=== PATIENT | female | born 1975 | race African-American/Black ===

== ENCOUNTER 2016-12-28 07:31 | Inpatient (IN) | payer OTHER ==
[2016-12-28] VITALS (7 sets, daily range): BP systolic 117–171; BP diastolic 59–112
[~2016-12-28] VITALS: Ht 152.4 cm; Wt 87.6 kg
--- NOTE | ~2016-12-28 | EKG ---
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
[~2016-12-28 07:31] MED LIST: ACCUNEB SO1.25 MG/1 INH; ACETAMINOPHEN-1 EAC1 PO; ACETAMINOPHEN325 M1 PO; ALBUTEROL2.5 MG/0.1 INH; ALBUTEROL2.5 MG/0.5 INH; ALBUTEROL2.5 MG/31 INH; ALBUTEROL2.5 MG/31 PO; ALDACTONE25 MG PO; AMLODIPINE BESY10 MG PO; AMOXICILLIN500 M1 PO; ATIVAN0.5 MG PO; ATIVAN1 MG PO; BENADRYL25 MG PO; BENTYL 20 MG TA20 M1 PO; COLACE 100 MG100 MG PO; DARVOCET-N 1001 EACH PO; DESYREL100 MG PO; DILAUDID2 M1 PO; DOXYCYCLINE 10100 MG PO; FLEXERIL; FLOVENT HFA 1110 MCG; HOME NEBULIZER; HYDROCHLORO; HYDROCHLOROTH12.5 M1 PO; HYDROXYCHLOROQ200 M1 PO; IBUPROFEN 600600 M1 PO; IBUPROFEN 800800 M1 PO; LISINOPRIL PO; LISINOPRIL10 MG PO; MECLIZINE 25 MG25 M1 PO; MEDROL DOSPAK21 TAB PO; MEDROLDOSEPACK PO; MIRALAX255 GM PO; NAPROSYN500 MG PO; NORCO 5-325 TA1 EACH PO; PERCOCET 5-3251 EACH PO; PHENERGAN 25 MG25 M1 PO; PLAQUENIL200 MG PO; PREDNISONE 10 M10 M1 PO; PREDNISONE 10 M10 MG PO; PREDNISONE 20 M20 MG PO; PREDNISONE 5 MG5 MG; PREDNISONE50 MG PO; PROAIR HFA8.5 GM IH; PROAIR HFA8.5 GM INH; PROMETHAZINE-C120 ML PO; PROTONIX 20 MG20 M1 PO; PROTONIX40 M1 PO; PROVENTIL HFA6.7 G1 INH; PROVENTIL IH; SPIRIVA INH; TESSALON PERLE100 MG PO; TOPAMAX PO; TRAMADOL 50 MG50 MG PO; ULTRAM 50MG TAB50 MG PO; VENTOLIN HFA 1818 GM INH; VENTOLIN17 GM INH; VICODIN 5-5001 EACH PO; XANAX 0.5 MG0.5 MG PO; ZOFRAN ODT4 MG PO; ZPAK PO; [UNRECOGNIZED DRUG - OTHER] TP
[2016-12-28] MEDS ORDERED: PROAIR HFA8.5 GM INH (08:20)
[2016-12-28] MEDS ORDERED: ACCUNEB SO1.25 MG/1 INH (08:20)
[2016-12-28] MEDS ORDERED: PREDNISONE 20 M20 MG PO (08:20)
[2016-12-28 09:42] LABS: ABSOLUTE NEUTROPHILS 7.6 thou/uL (1.4-8.2); BASOPHILS 0.5 % (0.0-2.0); HEMOGLOBIN 11.2 gm/dL (12.0-15.0); LYMPHOCYTES 15.8 % (24.0-44.0); MCH 25.9 pg (26.0-34.0); MCHC 32.8 g/dL (28.0-37.0); MONOCYTES 1.5 % (1.0-8.0); PLATELET COUNT 246 thou/uL (150-400); POLYS 79.2 % (36.0-66.0); RBC 4.31 mil/uL (4.20-5.00); RDW 15.3 % (10.5-14.5); WBC 9.5 thou/uL (4.0-11.0)
[2016-12-28 09:44] LABS: MANUAL DIFF NO
[2016-12-28 09:52] LABS: CALCIUM 8.8 mg/dL (8.5-10.1); CREATININE 0.9 mg/dL (0.6-1.3); POTASSIUM 3.1 mmol/L (3.5-5.1)
[2016-12-28 21:16] LABS: MAGNESIUM 1.9 mg/dL (1.8-2.4); POTASSIUM 4.6 mmol/L (3.5-5.1)
[2016-12-28 21:31] LABS: CK-MB MASS 0.7 ng/mL (<0.5-3.6); TROPONIN-I < 0.04 ng/mL (<0.04-0.07)
[2016-12-29 03:08] VITALS: BP 132/73
[2016-12-29 04:10] LABS: HEMATOCRIT 33.1 % (37.0-47.0); HEMOGLOBIN 10.8 gm/dL (12.0-15.0); MCH 26.2 pg (26.0-34.0); MCHC 32.8 g/dL (28.0-37.0); MCV 79.9 fL (80.0-100.0); RBC 4.13 mil/uL (4.20-5.00); RDW 15.9 % (10.5-14.5); WBC 12.6 thou/uL (4.0-11.0)
[2016-12-29 04:22] LABS: CREATININE 0.8 mg/dL (0.6-1.3); PHOSPHORUS 2.2 mg/dL (2.5-4.9); POTASSIUM 4.6 mmol/L (3.5-5.1)
[2016-12-29 11:14] VITALS: BP 119/66
[2016-12-29 16:20] VITALS: BP 138/83
[2016-12-29 19:50] VITALS: BP 123/69
[2016-12-30 03:24] VITALS: BP 134/77
[2016-12-30 07:35] VITALS: BP 134/82
[2016-12-30 11:25] VITALS: BP 139/80
[2016-12-30 16:05] VITALS: BP 133/87
[2016-12-30 19:37] VITALS: BP 145/92
[2016-12-31 03:55] VITALS: BP 133/73
[2016-12-31 07:25] VITALS: BP 179/102
[2016-12-31] MEDS ORDERED: ZOFRAN ODT4 MG PO (09:45)
[2016-12-31] MEDS ORDERED: MIRALAX17 GM PO (09:48)
[2016-12-31 11:25] VITALS: BP 146/77
[2016-12-31 13:01] VITALS: BP 146/77
== END 2016-12-31 14:30 | disposition home or self-care (01) | DRG 189 ==
LOC: ER 07:31 → EROBS 09:33 → 5S 09:33 → 2N 12:00 → 4W 21:27 → 2N 12-29 16:23
PROVIDERS: Emergency Medicine; Hospitalist; Nurse Practitioner
DX: J96.01 Acute respiratory failure with hypoxia (principal); K56.7 Ileus, unspecified; J45.901 Unspecified asthma with (acute) exacerbation; T40.605A Adverse effect of unspecified narcotics, initial encounter; I10 Essential (primary) hypertension; K21.9 Gastro-esophageal reflux disease without esophagitis; G43.909 Migraine, unspecified, not intractable, without status migrainosus; M32.9 Systemic lupus erythematosus, unspecified; M19.90 Unspecified osteoarthritis, unspecified site; F41.9 Anxiety disorder, unspecified; E87.6 Hypokalemia; Y92.89 Other specified places as the place of occurrence of the external cause; Z88.6 Allergy status to analgesic agent; Z79.899 Other long term (current) drug therapy; Z88.8 Allergy status to other drugs, medicaments and biological substances; Z87.891 Personal history of nicotine dependence
CPT/HCPCS: 10045; 10081

== ENCOUNTER 2017-04-02 11:17 | Inpatient (IN) | payer OTHER ==
[~2017-04-02] VITALS: Ht 152.4 cm; Wt 92.8 kg
--- NOTE | ~2017-04-02 | 2DMMODE ---
[facility] [address] [place] [address] 2 D/M-MODE ECHOCARDIOGRAM Name: KIMBERLY WEBER Room #: 424-P ADM IN M.R.#: [id number] Admission: 04/02/17 Attend Phys: Gilberto Short Discharge: Date of : 75 Date of Service: 04/03/17 1603 Report #: [id number] THIS REPORT FOR: //name// APPROVED REPORT Study performed: 04/03/2017 13:49:00 EXAM: Comprehensive 2D, Doppler, and color-flow Echocardiogram Patient Location: Bedside Room #: 424 Status: routine Other Information Study Quality: Good Indications Dyspnea 2D Dimensions RVDd: 31.86 mm LVEF(%): 56.41 (>50%) IVSd: 9.59 (7-11mm) LVOT Diam: 17.93 (18-24mm) LVDd: 48.15 mm PWd: 8.68 (7-11mm) Ascending Ao: 26.55 (22-36mm) LVDs: 33.94 (25-40mm) Aortic Root: 23.03 mm IVC: 10.00 mm Gutierrez's LVEF: 56.41 % Volumes Left Atrial Volume (Systole) Single Plane 4CH: 28.70 mL Single Plane 2CH: 24.53 mL LA ESV Index: 17.00 mL/m2 Mitral Valve E/A Ratio: 1.0 MV Decel. Time: 167.15 ms MV E Max Philip.: 1.01 m/s MV A Philip.: 0.97 m/s MV PHT: 48.47 ms IVRT: 78.43 ms Pulmonary Valve PV Peak Philip.: 1.13 m/s PV Peak Gr.: 5.13 mmHg Pulmonary Vein P Vein S: 0.66 m/s P Vein A: 0.28 m/s [facility] [place] [address] 2 D/M-MODE ECHOCARDIOGRAM Name: GUSKIMBERLY JOSE DAVID Room #: 424-P [facility] IN ..#: [id number] Admission: 04/02/17 Attend Phys: Gilberto Short Discharge: Date of : 75 Date of Service: 04/03/17 1603 Report #: [id number] P Vein D: 0.41 m/s P Vein A Dur.: 106.1 msec P Vein S/D Ratio: 1.61 Tricuspid Valve TR Peak Philip.: 2.29 m/s RAP Estimate: 5.00 mmHg TR Peak Gr.: 21.03 mmHg PA Pressure: 26.00 mmHg Left Ventricle The left ventricle is normal size. There is normal LV segmental wall motion. There is normal left ventricular wall thickness. The left ventricular systolic function is normal. The left ventricular ejection fraction is within the normal range. LVEF is 55-60%. The left ventricular diastolic function is normal. Right Ventricle The right ventricle is normal size. The right ventricular systolic function is normal. Atria The left atrium size is normal. The right atrium size is normal. Aortic Valve The aortic valve is normal in structure. No aortic regurgitation is present. There is no aortic valvular stenosis. Mitral Valve The mitral valve is normal in structure. There is no mitral valve regurgitation noted. No evidence of mitral valve stenosis. Tricuspid Valve The tricuspid valve is normal in structure. There is trace tricuspid regurgitation. The right atrial pressure is estimated at 5 mmHg. There is no pulmonary hypertension. Pulmonic Valve The pulmonary valve is normal in structure. There is no pulmonic valvular regurgitation. Great Vessels The aortic root is normal in size. IVC is normal in size and collapses >50% with inspiration. Pericardium There is no pericardial effusion. [facility] [address] [place] [address] 2 D/M-MODE ECHOCARDIOGRAM Name: KIMBERLY WEBER Room #: 424-P [facility] IN [facility].#: [id number] Admission: 04/02/17 Attend Phys: Gilberto Short Discharge: Date of : 75 Date of Service: 04/03/17 1603 Report #: [id number] <Conclusion> The left ventricular systolic function is normal. There is normal LV segmental wall motion. LVEF 55-60%. Normal diastolic function The aortic valve is normal in structure. No aortic regurgitation or stenosis The mitral valve is normal in structure. No mitral insufficiency Pulmonary artery pressure could not be reliably ascertained There is no pericardial effusion. <ELECTRONICALLY SIGNED> By: Glenn Talley MD, [facility] 04/03/17 1603 1603 1603 Glenn Talley MD, [facility] /INF
--- NOTE | ~2017-04-02 | EKG ---
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
[~2017-04-02 11:17] MED LIST changes: +MIRALAX17 GM PO
[2017-04-02 11:23] VITALS: BP 144/87
[2017-04-02 12:07] LABS: ABSOLUTE NEUTROPHILS 5.2 thou/uL (1.4-8.2); BASOPHILS 0.9 % (0.0-2.0); EOSINOPHILS 9.9 % (0.0-3.0); HEMATOCRIT 33.4 % (37.0-47.0); HEMOGLOBIN 11.1 gm/dL (12.0-15.0); LYMPHOCYTES 21.4 % (24.0-44.0); MCH 26.3 pg (26.0-34.0); MCHC 33.2 g/dL (28.0-37.0); MONOCYTES 6.5 % (1.0-8.0); PLATELET COUNT 260 thou/uL (150-400); POLYS 61.3 % (36.0-66.0); RBC 4.23 mil/uL (4.20-5.00); RDW 15.9 % (10.5-14.5); WBC 8.6 thou/uL (4.0-11.0)
[2017-04-02 12:08] LABS: MANUAL DIFF NO
[2017-04-02 12:17] LABS: ANION GAP 8 mmol/L (7-16); BUN 11 mg/dL (7-18); CALCIUM 9.2 mg/dL (8.5-10.1); CHLORIDE 106 mmol/L (98-107); CO2 23 mmol/L (21-32); CREATININE 0.9 mg/dL (0.6-1.0); GLUCOSE 88 mg/dL (74-106); POTASSIUM 4.1 mmol/L (3.5-5.1); SODIUM 137 mmol/L (136-145)
[2017-04-02 12:28] LABS: ALBUMIN 3.3 g/dL (3.4-5.0); ALKALINE PHOSPHATASE 84 U/L (46-116); NT-PRO BRAIN NAT PEPTIDE 53 pg/mL (<300); SGOT 15 U/L (15-37); SGPT 13 U/L (30-65); TOTAL BILIRUBIN 0.5 mg/dL (<0.1-1.0); TOTAL PROTEIN 7.5 g/dL (6.4-8.2); TROPONIN-I < 0.04 ng/mL (<0.04-0.07)
[2017-04-02 14:16] VITALS: BP 129/78
[2017-04-02 16:00] VITALS: BP 136/77
[2017-04-02 20:00] VITALS: BP 153/79
[2017-04-03 04:06] VITALS: BP 132/70
[2017-04-03 09:05] VITALS: BP 133/76
[2017-04-03 15:59] VITALS: BP 128/70
[2017-04-03 20:02] VITALS: BP 116/61
[2017-04-04] VITALS (11 sets, daily range): BP systolic 121–161; BP diastolic 51–91
[2017-04-05] VITALS (25 sets, daily range): BP systolic 116–152; BP diastolic 71–111
[2017-04-05 15:06] LABS: c-ANCA <1:20 titer (Neg:<1:20); p-ANCA <1:20 titer (Neg:<1:20)
[2017-04-06] VITALS (8 sets, daily range): BP systolic 128–150; BP diastolic 66–89
[2017-04-07 04:48] VITALS: BP 141/83
[2017-04-07 11:24] VITALS: BP 133/85
[2017-04-07 17:40] VITALS: BP 140/78
[2017-04-07 20:41] VITALS: BP 122/65
[2017-04-08] VITALS (7 sets, daily range): BP systolic 116–127; BP diastolic 60–79
[2017-04-08] MEDS ORDERED: SINGULAIR 10 MG10 M1 PO (15:26)
[2017-04-08] MEDS ORDERED: ZOFRAN ODT4 MG PO (15:26)
[2017-04-08] MEDS ORDERED: ALBUTEROL2.5 MG/0.1 INH (15:26)
[2017-04-08] MEDS ORDERED: IBUPROFEN 600600 M1 PO (15:26)
[2017-04-08] MEDS ORDERED: WELLBUTRIN SR100 MG PO (15:26)
[2017-04-08] MEDS ORDERED: TIZANIDINE HCL 22 M1 PO (15:26)
[2017-04-08] MEDS ORDERED: PREDNISONE 10 M10 M1 PO (15:26)
[2017-04-08] MEDS ORDERED: NASAL DECONGEST30 ML NASAL (15:26)
[2017-04-08] MEDS ORDERED: PROTONIX40 M1 PO (15:26)
== END 2017-04-08 17:30 | disposition home or self-care (01) | DRG 202 ==
LOC: ER 11:17 → 4E 12:41 → EROBS 12:41 → 4E 13:13 → ICU 04-04 22:20 → 2N 04-07 18:04
PROVIDERS: Internal Medicine Pulmonary Disease; Nurse Practitioner Family
PROC: 5A09357 Assistance with Respiratory Ventilation, Less than 24 Consecutive Hours, Continuous Positive Airway Pressure (ICD-10-PCS; principal; 2017-04-04)
PROC: 09JY4ZZ Inspection of Sinus, Percutaneous Endoscopic Approach (ICD-10-PCS; 2017-04-06)
DX: J45.901 Unspecified asthma with (acute) exacerbation (principal); E44.1 Mild protein-calorie malnutrition; Z68.41 Body mass index [BMI] 40.0-44.9, adult; I10 Essential (primary) hypertension; K21.9 Gastro-esophageal reflux disease without esophagitis; G43.909 Migraine, unspecified, not intractable, without status migrainosus; M32.9 Systemic lupus erythematosus, unspecified; M19.90 Unspecified osteoarthritis, unspecified site; F41.9 Anxiety disorder, unspecified; R06.1 Stridor; G47.33 Obstructive sleep apnea (adult) (pediatric); Z79.899 Other long term (current) drug therapy; Z88.5 Allergy status to narcotic agent; Z88.8 Allergy status to other drugs, medicaments and biological substances; Z87.891 Personal history of nicotine dependence; Z80.9 Family history of malignant neoplasm, unspecified
CPT/HCPCS: 10078; 10081; 10183

== ENCOUNTER 2017-04-26 13:44 | Inpatient (IN) | payer OTHER ==
[~2017-04-26] VITALS: Ht 152.4 cm; Wt 89.8 kg
[2017-04-26 13:44] VITALS: BP 152/87
[~2017-04-26 13:44] MED LIST changes: +NASAL DECONGEST30 ML NASAL; +SINGULAIR 10 MG10 M1 PO; +TIZANIDINE HCL 22 M1 PO; +WELLBUTRIN SR100 MG PO
[2017-04-26 15:48] LABS: ABSOLUTE NEUTROPHILS 9.4 thou/uL (1.4-8.2); BASOPHILS 0.5 % (0.0-2.0); EOSINOPHILS 0.1 % (0.0-3.0); HEMATOCRIT 33.1 % (37.0-47.0); LYMPHOCYTES 11.6 % (24.0-44.0); MCH 26.3 pg (26.0-34.0); MCHC 33.1 g/dL (28.0-37.0); MCV 79.2 fL (80.0-100.0); MONOCYTES 6.4 % (1.0-8.0); PLATELET COUNT 295 thou/uL (150-400); POLYS 81.4 % (36.0-66.0); RBC 4.18 mil/uL (4.20-5.00); WBC 11.5 thou/uL (4.0-11.0)
[2017-04-26 15:52] LABS: MANUAL DIFF NO
[2017-04-26 15:57] LABS: CALCIUM 9.7 mg/dL (8.5-10.1); CREATININE 0.8 mg/dL (0.6-1.0)
[2017-04-26 16:04] LABS: TOTAL BILIRUBIN 0.2 mg/dL (<0.1-1.0); TOTAL PROTEIN 7.3 g/dL (6.4-8.2)
[2017-04-26] MEDS ORDERED: XANAX 0.25 MG0.25 MG PO (16:25)
[2017-04-26 16:37] VITALS: BP 152/87
[2017-04-26 17:55] VITALS: BP 159/90
[2017-04-26 20:30] VITALS: BP 148/89
[2017-04-26 23:20] VITALS: BP 130/77
[2017-04-27 04:45] VITALS: BP 143/81
[2017-04-27 08:57] VITALS: BP 148/89
[2017-04-27 16:45] VITALS: BP 143/75
[2017-04-27 20:00] VITALS: BP 143/76
[2017-04-28 04:00] VITALS: BP 165/94
[2017-04-28 08:55] VITALS: BP 171/94
[2017-04-28 20:00] VITALS: BP 169/98
[2017-04-29 07:30] VITALS: BP 169/98
[2017-04-29 08:00] VITALS: BP 216/101
[2017-04-29 09:32] LABS: HEMATOCRIT 32.2 % (37.0-47.0); HEMOGLOBIN 10.7 gm/dL (12.0-15.0); MCH 26.6 pg (26.0-34.0); MCHC 33.3 g/dL (28.0-37.0); RBC 4.02 mil/uL (4.20-5.00); RDW 17.6 % (10.5-14.5); WBC 8.6 thou/uL (4.0-11.0)
[2017-04-29 09:34] VITALS: BP 181/105
[2017-04-29 09:45] LABS: PROTIME 10.2 Seconds (9.3-11.4)
[2017-04-29 09:46] LABS: CALCIUM 9.5 mg/dL (8.5-10.1)
[2017-04-29 12:22] LABS: URINE BILIRUBIN NEGATIVE (Negative); URINE BLOOD TRACE (Negative); URINE COLOR YELLOW; URINE GLUCOSE-RANDOM* NEGATIVE (Negative); URINE KETONES NEGATIVE (Negative); URINE LEUKOCYTES-REFLEX NEGATIVE (Negative); URINE PROTEIN (DIPSTICK) NEGATIVE (Negative); URINE UROBILINOGEN 0.2 E.U./dl (0.2-1.0)
[2017-04-29 13:12] VITALS: BP 136/86
[2017-04-29 16:00] VITALS: BP 174/96
[2017-04-29 20:30] VITALS: BP 137/76
[2017-04-30 04:35] VITALS: BP 156/85
[2017-04-30 08:10] VITALS: BP 152/87
[2017-04-30 16:09] VITALS: BP 148/83
[2017-04-30 20:00] VITALS: BP 137/82
[2017-05-01 04:00] VITALS: BP 156/91
[2017-05-01 08:00] VITALS: BP 144/90
[2017-05-01 16:00] VITALS: BP 134/83
[2017-05-01 21:00] VITALS: BP 133/80
[2017-05-02 04:45] VITALS: BP 147/89
[2017-05-02] MEDS ORDERED: PERCOCET 10-321 EACH PO (07:36)
[2017-05-02] MEDS ORDERED: HYDROXYCHLOROQ200 M1 PO (07:37)
[2017-05-02 10:44] VITALS: BP 147/89
[2017-05-02] MEDS ORDERED: NYSTATIN 1100000 U/M SW&SWALLOW (11:16)
[2017-05-02 11:28] VITALS: BP 147/89
[2017-05-02 11:33] VITALS: BP 147/89
[2017-05-03] MEDS ORDERED: PREDNISONE 5 MG5 M1 PO (10:39)
[2017-05-03] MEDS ORDERED: LEVAQUIN 750 M750 MG PO (10:39)
[2017-05-03] MEDS ORDERED: CLEOCIN HCL300 MG PO (10:39)
== END 2017-05-02 13:47 | disposition home or self-care (01) | DRG 546 ==
LOC: ER 13:44 → 3N 15:20 → EROBS 15:20 → 3N 16:37
PROVIDERS: Emergency Medicine; Internal Medicine Rheumatology; Radiology Vascular & Interventional Radiology
PROC: 02HV33Z Insertion of Infusion Device into Superior Vena Cava, Percutaneous Approach (ICD-10-PCS; principal; 2017-04-29)
PROC: B5181ZA Fluoroscopy of Superior Vena Cava using Low Osmolar Contrast, Guidance (ICD-10-PCS; principal; 2017-04-29)
PROC: B548ZZA Ultrasonography of Superior Vena Cava, Guidance (ICD-10-PCS; principal; 2017-04-29)
DX: M32.9 Systemic lupus erythematosus, unspecified (principal); B37.0 Candidal stomatitis; E44.1 Mild protein-calorie malnutrition; J45.909 Unspecified asthma, uncomplicated; I10 Essential (primary) hypertension; K21.9 Gastro-esophageal reflux disease without esophagitis; G43.909 Migraine, unspecified, not intractable, without status migrainosus; M19.90 Unspecified osteoarthritis, unspecified site; G89.29 Other chronic pain; F41.9 Anxiety disorder, unspecified; Z79.899 Other long term (current) drug therapy; Z88.5 Allergy status to narcotic agent; Z88.8 Allergy status to other drugs, medicaments and biological substances; Z87.891 Personal history of nicotine dependence; Z80.9 Family history of malignant neoplasm, unspecified
CPT/HCPCS: 10094

== ENCOUNTER 2017-05-03 05:50 | Emergency (ER) | payer OTHER ==
[~2017-05-03] VITALS: Ht 152.4 cm; Wt 87.5 kg
[~2017-05-03 05:50] MED LIST changes: +NYSTATIN 1100000 U/M SW&SWALLOW; +PERCOCET 10-321 EACH PO; +XANAX 0.25 MG0.25 MG PO
[2017-05-03 07:30] LABS: HEMATOCRIT 34.4 % (37.0-47.0); HEMOGLOBIN 11.1 gm/dL (12.0-15.0); MCH 25.9 pg (26.0-34.0); MCHC 32.4 g/dL (28.0-37.0); PLATELET COUNT 367 thou/uL (150-400); RDW 17.9 % (10.5-14.5); WBC 17.1 thou/uL (4.0-11.0)
[2017-05-03 08:15] LABS: MANUAL DIFF YES
[2017-05-03 08:41] LABS: ABSOLUTE NEUTROPHILS 11.8 thou/uL (1.4-8.2); PLATELET ESTIMATE NORMAL; TOTAL CELL COUNT 100
[2017-05-03 08:42] LABS: ALBUMIN 2.9 g/dL (3.4-5.0); CALCIUM 8.8 mg/dL (8.5-10.1); POTASSIUM 3.5 mmol/L (3.5-5.1); TOTAL BILIRUBIN 0.2 mg/dL (<0.1-1.0); TOTAL PROTEIN 6.5 g/dL (6.4-8.2)
[2017-05-03] MEDS ORDERED: CLEOCIN HCL300 MG PO (10:39)
[2017-05-03] MEDS ORDERED: PREDNISONE 5 MG5 M1 PO (10:39)
[2017-05-03] MEDS ORDERED: LEVAQUIN 750 M750 MG PO (10:39)
== END 2017-05-03 10:50 | disposition home or self-care (01) ==
LOC: ER 05:50
PROVIDERS: Emergency Medicine
DX: J18.9 Pneumonia, unspecified organism (principal); J02.9 Acute pharyngitis, unspecified; I10 Essential (primary) hypertension; J45.909 Unspecified asthma, uncomplicated; K21.9 Gastro-esophageal reflux disease without esophagitis; G43.909 Migraine, unspecified, not intractable, without status migrainosus; M19.90 Unspecified osteoarthritis, unspecified site; M32.9 Systemic lupus erythematosus, unspecified; Z87.891 Personal history of nicotine dependence; Z88.5 Allergy status to narcotic agent; Z91.018 Allergy to other foods; Z88.8 Allergy status to other drugs, medicaments and biological substances

== ENCOUNTER 2017-05-07 16:41 | Emergency (ER) | payer OTHER ==
[~2017-05-07] VITALS: Ht 152.4 cm; Wt 89.8 kg
--- NOTE | ~2017-05-07 | EKG ---
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
[~2017-05-07 16:41] MED LIST changes: +CLEOCIN HCL300 MG PO; +LEVAQUIN 750 M750 MG PO; +PREDNISONE 5 MG5 M1 PO
[2017-05-07 17:57] LABS: ABG SAMPLE TYPE ARTERIAL; BE(vivo) 0.9 mmol/L (-2 to +3); HCO3 24.2 mmol/L (22.0-26.0); LACTATE 0.86 mmol/L (0.5-2.0); O2(CT) 15.6 mL/dL (15.0-23.0); O2Hb 97.1 % (92.0-98.0); PO2 100.9 mmHg (80.0-100.0); STICK SITE L.BRACHIAL; tCO2 25.2 mmol/L (24.0-30.0)
[2017-05-07 19:37] LABS: HEMOGLOBIN 11.6 gm/dL (12.0-15.0); PLATELET COUNT 219 thou/uL (150-400)
[2017-05-07 19:40] LABS: HEMATOCRIT 35.7 % (37.0-47.0); MCH 26.3 pg (26.0-34.0); MCHC 32.6 g/dL (28.0-37.0); MCV 80.6 fL (80.0-100.0); RBC 4.43 mil/uL (4.20-5.00); RDW 18.2 % (10.5-14.5); WBC 19.6 thou/uL (4.0-11.0)
[2017-05-07 19:41] LABS: MANUAL DIFF YES
[2017-05-07 19:45] LABS: ANION GAP 7 mmol/L (7-16); BUN 16 mg/dL (7-18); CALCIUM 9.2 mg/dL (8.5-10.1); CHLORIDE 104 mmol/L (98-107); CO2 24 mmol/L (21-32); GLUCOSE 92 mg/dL (74-106); POTASSIUM 4.5 mmol/L (3.5-5.1); SODIUM 135 mmol/L (136-145)
[2017-05-07 19:58] LABS: NT-PRO BRAIN NAT PEPTIDE 13 pg/mL (<300); TROPONIN-I < 0.04 ng/mL (<0.04-0.07)
[2017-05-07 20:08] LABS: ABSOLUTE NEUTROPHILS 15.7 thou/uL (1.4-8.2); ANISOCYTOSIS 1+; PLATELET ESTIMATE NORMAL; TOTAL CELL COUNT 100
[2017-05-07] MEDS ORDERED: NORCO 5-325 TA1 EACH PO (20:20)
== END 2017-05-07 20:35 | disposition home or self-care (01) ==
LOC: ER 16:41
PROVIDERS: Emergency Medicine
DX: M32.9 Systemic lupus erythematosus, unspecified (principal); G89.29 Other chronic pain; R06.02 Shortness of breath; I10 Essential (primary) hypertension; J45.909 Unspecified asthma, uncomplicated; K21.9 Gastro-esophageal reflux disease without esophagitis; G43.909 Migraine, unspecified, not intractable, without status migrainosus; M19.90 Unspecified osteoarthritis, unspecified site; F15.10 Other stimulant abuse, uncomplicated; Z88.5 Allergy status to narcotic agent; Z91.018 Allergy to other foods; Z88.8 Allergy status to other drugs, medicaments and biological substances; Z87.891 Personal history of nicotine dependence

== ENCOUNTER → 2017-05-08 | Outpatient (CLI) | payer OTHER | LOC: SPEECH 09:51 | DX: H61.22 Impacted cerumen, left ear (principal); R13.14 Dysphagia, pharyngoesophageal phase; R49.0 Dysphonia ==

== ENCOUNTER 2017-05-28 23:49 | Emergency (ER) | payer OTHER ==
[~2017-05-28] VITALS: Ht 170.2 cm; Wt 99.8 kg
--- NOTE | ~2017-05-28 | EKG ---
[address] [address] ELECTROCARDIOGRAM REPORT Name: KIMBERLY WEBER [id number] Admission: 05/28/17 Attend Phys: Discharge: 05/29/17 Date of : 75 Report #: [id number] THIS REPORT FOR: //name// [facility] ED Test Date: 2017-05-28 Test Time: 23:52:39 Pat Name: KIMBERLY WEBER Department: Room: Gender: F Access Services Representative: REYNALDO : 1975 Requested By: Cindy Nance Order Number: [id number] MD: Glenn Talley Measurements Intervals [place] Rate: 112 P: 60 [place]: 133 QRS: 46 QRSD: 82 T: 37 QT: 331 QTc: 452 Interpretive Statements Sinus tachycardia No significant abnormality Compared to ECG 05/07/2017 16:47:08 Sinus tachycardia is now present Electronically Signed On 05-29-2017 8:51:21 CDT by Glenn Talley [email or web address] <ELECTRONICALLY SIGNED> By: Glnen Talley MD, [facility] 05/29/17 0851 D: 08/2351 51 Glenn Talley MD, FACC /EPI
[2017-05-29 02:58] LABS: MANUAL DIFF NO; RBC 4.35 mil/uL (4.20-5.00); WBC 10.6 thou/uL (4.0-11.0)
[2017-05-29 02:59] LABS: ABSOLUTE NEUTROPHILS 7.8 thou/uL (1.4-8.2); BASOPHILS 0.8 % (0.0-2.0); EOSINOPHILS 2.4 % (0.0-3.0); HEMATOCRIT 34.2 % (37.0-47.0); HEMOGLOBIN 11.3 gm/dL (12.0-15.0); LYMPHOCYTES 16.5 % (24.0-44.0); MCH 25.9 pg (26.0-34.0); MCHC 32.9 % (28.0-37.0); MCV 78.6 fL (80.0-100.0); PLATELET COUNT 303 thou/uL (150-400); POLYS 73.3 % (36.0-66.0)
[2017-05-29 03:00] LABS: CALCIUM 9.5 mg/dL (8.5-10.1); CREATININE 0.9 mg/dL (0.6-1.0); POTASSIUM 3.8 mmol/L (3.5-5.1)
== END 2017-05-29 03:19 | disposition home or self-care (01) ==
LOC: ER 23:49 → EDBD 23:49 → ER 05-29 03:19
PROVIDERS: Emergency Medicine
DX: I47.1 Supraventricular tachycardia (principal); I10 Essential (primary) hypertension; J45.909 Unspecified asthma, uncomplicated; K21.9 Gastro-esophageal reflux disease without esophagitis; G43.909 Migraine, unspecified, not intractable, without status migrainosus; M19.90 Unspecified osteoarthritis, unspecified site; M32.9 Systemic lupus erythematosus, unspecified; Z88.5 Allergy status to narcotic agent; Z91.018 Allergy to other foods; Z88.8 Allergy status to other drugs, medicaments and biological substances; Z87.891 Personal history of nicotine dependence

== ENCOUNTER 2017-05-30 08:57 | Emergency (ER) | payer OTHER ==
[~2017-05-30] VITALS: Ht 152.4 cm; Wt 90.7 kg
--- NOTE | ~2017-05-30 | EKG ---
[address] [address] ELECTROCARDIOGRAM REPORT Name: KIMBERLY WEBER Room #: [facility]#: [id number] Admission: 05/30/17 Attend Phys: Discharge: 05/30/17 Date of : 75 Report #: [id number] THIS REPORT FOR: //name// [facility] ED Test Date: 2017-05-30 Test Time: 09:17:14 Pat Name: KIMBERLY WEBER Department: Room: Gender: F Personal Injury Law Specialist: harriet : 1975 Requested By: Guadalupe Moore Order Number: [id number] MD: Glenn Talley Measurements Intervals [place] Rate: 83 P: 52 MN: 130 QRS: 43 QRSD: 88 T: 34 QT: 371 QTc: 436 Interpretive Statements Sinus rhythm Abnormal R-wave progression, early transition Baseline wander in lead(s) V2,V3,V4 Compared to ECG 05/28/2017 23:52:39 Sinus tachycardia no longer present Electronically Signed On 05-31-2017 8:24:51 CDT by Glenn Talley [email or web address] <ELECTRONICALLY SIGNED> By: Glenn Talley MD, [facility] 05/31/1724 6 6 Glenn Talley MD, [facility] /EPI
[2017-05-30 10:26] LABS: ABSOLUTE NEUTROPHILS 5.2 thou/uL (1.4-8.2); BASOPHILS 1.1 % (0.0-2.0); EOSINOPHILS 2.5 % (0.0-3.0); HEMOGLOBIN 10.8 gm/dL (12.0-15.0); LYMPHOCYTES 19.6 % (24.0-44.0); MCH 26.5 pg (26.0-34.0); MCHC 33.9 g/dL (28.0-37.0); MCV 78.1 fL (80.0-100.0); MONOCYTES 6.6 % (1.0-8.0); PLATELET COUNT 294 thou/uL (150-400); POLYS 70.2 % (36.0-66.0); RDW 17.1 % (10.5-14.5); WBC 7.3 thou/uL (4.0-11.0)
[2017-05-30 10:31] LABS: MANUAL DIFF NO
[2017-05-30 10:38] LABS: ANION GAP 11 mmol/L (7-16); BUN 9 mg/dL (7-18); CALCIUM 9.1 mg/dL (8.5-10.1); CHLORIDE 104 mmol/L (98-107); CO2 23 mmol/L (21-32); CREATININE 0.9 mg/dL (0.6-1.0); GLUCOSE 89 mg/dL (74-106); SODIUM 138 mmol/L (136-145)
[2017-05-30 10:46] LABS: ALBUMIN 3.1 g/dL (3.4-5.0); ALKALINE PHOSPHATASE 83 U/L (46-116); SGOT 12 U/L (15-37); SGPT 15 U/L (30-65); TOTAL BILIRUBIN 0.3 mg/dL (<0.1-1.0); TOTAL PROTEIN 6.9 g/dL (6.4-8.2); TROPONIN-I < 0.04 ng/mL (<0.04-0.07)
== END 2017-05-30 12:19 | disposition home or self-care (01) ==
LOC: ER 08:57
PROVIDERS: Physician Assistant
DX: I47.1 Supraventricular tachycardia (principal); I10 Essential (primary) hypertension; J45.909 Unspecified asthma, uncomplicated; K21.9 Gastro-esophageal reflux disease without esophagitis; G43.909 Migraine, unspecified, not intractable, without status migrainosus; M19.90 Unspecified osteoarthritis, unspecified site; M32.9 Systemic lupus erythematosus, unspecified; Z87.01 Personal history of pneumonia (recurrent); Z87.891 Personal history of nicotine dependence; Z88.5 Allergy status to narcotic agent; Z91.018 Allergy to other foods; Z88.8 Allergy status to other drugs, medicaments and biological substances

== ENCOUNTER 2017-07-04 06:33 | Emergency (ER) | payer OTHER ==
[~2017-07-04] VITALS: Ht 152.4 cm; Wt 86.2 kg
--- NOTE | ~2017-07-04 | EKG ---
[place] [address] [address] [facility] [place] [address] ELECTROCARDIOGRAM REPORT Name: KIMBERLY WEBER [id number] Admission: 07/04/17 Attend Phys: Discharge: Date of : 75 Report #: [id number] THIS REPORT FOR: //name// [facility] ED Test Date: 2017-07-04 Test Time: 06:41:17 Pat Name: KIMBERLY WEBER Department: Room: Gender: F Ivf Embryologist: felix : 1975 Requested By: Cindy Nance Order Number: [id number] MD: Glenn Talley Measurements Intervals [place] Rate: 82 P: 68 [place]: 136 QRS: 48 QRSD: 96 T: 41 QT: 383 QTc: 448 Interpretive Statements Sinus rhythm Multiple ventricular premature complexes Abnormal R-wave progression, early transition Compared to ECG 05/30/2017 09:17:14 Ventricular premature complex(es) now present Electronically Signed On 07-04-2017 7:54:19 CDT by Glenn Talley [email or web address] <ELECTRONICALLY SIGNED> By: Glenn Talley MD, [facility] 07/04/17 0754 0 0 Glenn Talley MD, [facility] /EPI
[2017-07-04 07:24] LABS: ABSOLUTE NEUTROPHILS 6.4 thou/uL (1.4-8.2); BASOPHILS 1.2 % (0.0-2.0); EOSINOPHILS 5.6 % (0.0-3.0); HEMATOCRIT 33.6 % (37.0-47.0); LYMPHOCYTES 23.7 % (24.0-44.0); MCH 25.8 pg (26.0-34.0); MCHC 32.7 g/dL (28.0-37.0); MCV 79.1 fL (80.0-100.0); MONOCYTES 5.1 % (1.0-8.0); PLATELET COUNT 296 thou/uL (150-400); POLYS 64.4 % (36.0-66.0); RBC 4.25 mil/uL (4.20-5.00); WBC 9.9 thou/uL (4.0-11.0)
[2017-07-04 07:35] LABS: MANUAL DIFF NO
[2017-07-04 07:36] LABS: ANION GAP 8 mmol/L (7-16); BUN 11 mg/dL (7-18); CHLORIDE 107 mmol/L (98-107); CO2 24 mmol/L (21-32); CREATININE 0.9 mg/dL (0.6-1.0); GLUCOSE 97 mg/dL (74-106); POTASSIUM 3.9 mmol/L (3.5-5.1); SODIUM 139 mmol/L (136-145)
[2017-07-04 07:44] LABS: TROPONIN-I < 0.04 ng/mL (<0.04-0.07)
[2017-07-04] MEDS ORDERED: ATIVAN1 MG PO (08:47)
== END 2017-07-04 09:03 | disposition home or self-care (01) ==
LOC: ER 06:33
PROVIDERS: Emergency Medicine
DX: R00.2 Palpitations (principal); I10 Essential (primary) hypertension; R53.1 Weakness; J45.909 Unspecified asthma, uncomplicated; K21.9 Gastro-esophageal reflux disease without esophagitis; M19.90 Unspecified osteoarthritis, unspecified site; Z87.891 Personal history of nicotine dependence; Z88.6 Allergy status to analgesic agent

== ENCOUNTER → 2017-07-17 | Outpatient (CLI) | payer OTHER | LOC: RAD 14:17 | DX: D72.1 Eosinophilia (principal); R76.8 Other specified abnormal immunological findings in serum ==

== ENCOUNTER 2017-10-01 17:30 | Emergency (ER) | payer OTHER ==
[~2017-10-01] VITALS: Ht 152.4 cm; Wt 90.7 kg
[~2017-10-01 17:30] MED LIST changes: +BUTALB-APAP-CA1 EACH PO; +FLECAINIDE ACET50 M1 PO; +LEVALBUTER1.25 MG/0. INH; +OXYCODONE HCL 55 MG PO; +PEPCID20 MG PO; +PULMICORT0.5 MG/22 INH; +TOPAMAX50 MG PO; +TOPROL XL25 MG PO; +WAL-ZYR10 M1 PO; +WORK RELEASE
[2017-10-01 19:19] LABS: ABSOLUTE NEUTROPHILS 6.9 thou/uL (1.4-8.2); BASOPHILS 0.9 % (0.0-2.0); EOSINOPHILS 10.4 % (0.0-3.0); HEMATOCRIT 32.8 % (37.0-47.0); HEMOGLOBIN 10.8 gm/dL (12.0-15.0); LYMPHOCYTES 19.3 % (24.0-44.0); MCH 25.5 pg (26.0-34.0); MCHC 33.1 g/dL (28.0-37.0); MONOCYTES 4.9 % (1.0-8.0); PLATELET COUNT 273 thou/uL (150-400); POLYS 64.5 % (36.0-66.0); RBC 4.25 mil/uL (4.20-5.00); WBC 10.7 thou/uL (4.0-11.0)
[2017-10-01 19:19] LABS: URINE BILIRUBIN NEGATIVE (Negative); URINE BLOOD NEGATIVE (Negative); URINE CLARITY CLOUDY; URINE COLOR YELLOW; URINE GLUCOSE-RANDOM* NEGATIVE (Negative); URINE KETONES NEGATIVE (Negative); URINE LEUKOCYTES NEGATIVE (Negative); URINE NITRITE NEGATIVE (Negative); URINE PROTEIN (DIPSTICK) NEGATIVE (Negative); URINE SPECIFIC GRAVITY >= 1.030 (1.005-1.035); URINE UROBILINOGEN 0.2 E.U./dl (0.2-1.0)
[2017-10-01 19:22] LABS: ANION GAP 8 mmol/L (7-16); BUN 9 mg/dL (7-18); CALCIUM 8.8 mg/dL (8.5-10.1); CHLORIDE 105 mmol/L (98-107); CO2 26 mmol/L (21-32); CREATININE 0.9 mg/dL (0.6-1.0); GLUCOSE 100 mg/dL (74-106); POTASSIUM 3.7 mmol/L (3.5-5.1); SODIUM 139 mmol/L (136-145)
[2017-10-01 19:28] LABS: ALBUMIN 3.2 g/dL (3.4-5.0); DIRECT BILIRUBIN < 0.1 mg/dL (<0.1-0.3); LIPASE 97 U/L (73-393); SGOT 14 U/L (15-37); SGPT 15 U/L (30-65); TOTAL BILIRUBIN 0.2 mg/dL (<0.1-1.0)
[2017-10-01] MEDS ORDERED: PREDNISONE 20 M20 MG PO (20:51)
[2017-10-01] MEDS ORDERED: ONDANSETRON HCL4 M2 PO (21:13)
[2017-10-01 21:27] VITALS: BP 140/77
[2018-01-30] MEDS ORDERED: MIRALAX17 GM PO (07:33)
[2018-02-01] MEDS ORDERED: ATIVAN0.5 MG PO (01:06)
== END 2017-10-01 21:33 | disposition home or self-care (01) ==
LOC: ER 17:30
PROVIDERS: Nurse Practitioner
DX: J45.901 Unspecified asthma with (acute) exacerbation (principal); I10 Essential (primary) hypertension; K21.9 Gastro-esophageal reflux disease without esophagitis; G43.909 Migraine, unspecified, not intractable, without status migrainosus; M32.9 Systemic lupus erythematosus, unspecified; M19.90 Unspecified osteoarthritis, unspecified site; Z88.5 Allergy status to narcotic agent; Z91.018 Allergy to other foods; Z88.8 Allergy status to other drugs, medicaments and biological substances; Z87.891 Personal history of nicotine dependence

== ENCOUNTER 2017-10-03 11:22 | Inpatient (IN) | payer OTHER ==
[~2017-10-03] VITALS: Ht 152.4 cm; Wt 89.8 kg
--- NOTE | ~2017-10-03 | EKG ---
[address] [place] [address] ELECTROCARDIOGRAM REPORT Name: KIMBERLY COLON Room #: 170-1 ADM IN M.R.#: [id number] Admission: 10/03/17 Attend Phys: Santy Morales MD Discharge: Date of : 75 Report #: [id number] THIS REPORT FOR: //name// [facility] ED Test Date: 2017-10-03 Test Time: 12:41:14 Pat Name: KIMBERLY COLON Department: Room: 170 Gender: F Loan Documentation Specialist: MIGUE : 1975 Requested By: Bennett Myrick Order Number: [id number] MD: Glenn Talley Measurements Intervals [place] Rate: 78 P: 69 IN: 139 QRS: 54 QRSD: 79 T: 40 QT: 375 QTc: 428 Interpretive Statements Sinus rhythm No significant abnormality Compared to ECG 07/31/2017 08:51:48 No significant changes Electronically Signed On 10-03-2017 17:05:57 STRATEGY CONSULTANT by Glenn Talley [email or web address] <ELECTRONICALLY SIGNED> By: Glenn Talley MD, [facility] 10/03/17 1705 1241 40 Glenn Talley MD, FACC /EPI
--- NOTE | ~2017-10-03 | HC ---
[facility] [place] [address] CONSULTATION Name: KIMBERLY COLON Room #: 405-P ADM IN M.R.#: [id number] Admission: 10/03/17 Attend Phys: Santy Morales MD Discharge: Date of : 75 Report #: [id number] THIS REPORT FOR: //name// CC: FAM unknown Santy Morales MD DATE OF SERVICE: 10/04/2017 REFERRING PROVIDER: Santy Morales MD REASON FOR CONSULTATION: Shortness of breath and eosinophilia. HISTORY OF PRESENT ILLNESS: Our group was asked to evaluate the patient in consultation while hospitalized at [facility]. A pleasant 42-year-old woman, known to me from prior admissions and office visits over the last 6 months. She has a history of asthma since childhood, but has been complicated by high IgE and eosinophil counts. Most recently, eosinophil count on Saturday of this week was over a 1000. The patient is being evaluated for possible anti-eosinophil treatment by Dr. Juan Pablo Ponce of Allergy/Immunology, and myself as well has been previously on Xolair without any benefit, been managed by Dr. Meadows at [facility]. The patient was seen in the Emergency Department 2 days ago with complaints of cough and shortness of breath, was started on systemic steroids, had a clear chest x-ray at that time, seen in my office the following day with some productive sputum and some headaches with some sinus congestion, was started on antimicrobial therapy with azithromycin. The patient again represented to the emergency room yesterday with complaints of scant hemoptysis, no recurrent hemoptysis since that time, some upper respiratory congestion as described with some epistaxis noted in the recent past, fever at 101 at home, no chills or rigors. In the Emergency Department, a CT scan of the chest PE protocol was done, which showed clear lung sheppard. The patient has been on systemic steroids overnight with some improvement and complaints of ongoing congestion. No fevers overnight and overall feels somewhat better. ALLERGIES: INCLUDE PROCHLORPERAZINE, HYDROMORPHONE, MORPHINE, AND REGLAN. PAST MEDICAL HISTORY: 1. Systemic lupus erythematosus, managed by rheumatology at , has been on Plaquenil for several years, initially manifested as arthritis and malar rash. 2. Hypertension. 3. Migraine headaches. 4. Longstanding history of asthma. OUTPATIENT MEDICATIONS: Had included Breo inhaler, Plaquenil, dicyclomine, Spiriva, albuterol, bupropion, Singulair, Protonix, [place] [address] CONSULTATION Name: KIMBERLY COLON [facility]: [facility] ..#: [id number] Admission: 10/03/17 Attend Phys: Santy Morales MD Discharge: Date of : 75 Report #: [id number] SOCIAL HISTORY: The patient is a nonsmoker, no alcohol consumption. FAMILY HISTORY: Negative for any significant pulmonary disease. REVIEW OF SYSTEMS: As described in HPI. CONSTITUTIONAL: Some fever, no chills. ENT: Some upper respiratory congestion and recent epistaxis. CARDIOVASCULAR: No chest pains or palpitations. GASTROINTESTINAL: Some abdominal bloating, some nausea, but no vomiting or diarrhea. GENITOURINARY: No dysuria, no frequency, but suggests hematuria overnight. INTEGUMENT: Denies any rash, has a history of lupus related to malar rash. MUSCULOSKELETAL: Chronic underlying joint pains, headaches. PHYSICAL EXAMINATION: VITAL SIGNS: Afebrile, pulse 70s and regular, respiratory rate 20, blood pressure 124/63, oxygen saturation 100% on room air. GENERAL: This is a pleasant young woman, in no distress. ENT: Clear oropharynx. No thrush. Mallampati 2 airway. NECK: Supple. No lymphadenopathy. LUNGS: Essentially clear. No wheezes or crackles appreciated. CARDIOVASCULAR: Heart rate is regular. No murmurs noted. ABDOMEN: Mildly distended, soft, no masses, no hepatosplenomegaly, nontender. EXTREMITIES: Warm with 2+ pulses, no edema. LABORATORY DATA: Initially on presentation, white blood cell count was 9000 with 450 eosinophils, hemoglobin 10, hematocrit 29, and platelet count 240. Chemistry profile within reasonable limits except for an elevated glucose at 159 since initiating steroids. Arterial blood gas on room air revealed pH 7.46, pCO2 of 31, pO2 of 83, bicarbonate of 21. IMPRESSION: 1. 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 We have to discuss further with her steam box tender, Dr. Ponce. 2. Asthma with acute exacerbation. 3. Hemoptysis, single episode, likely related to lower respiratory infection. SUGGEST: 1. Systemic steroids with taper. 2. Consider reevaluating labs regarding history of lupus. 3. Bronchodilators. [facility] [address] [place] [address] CONSULTATION Name: KIMBERLY COLON Room #: 405-P ADM IN M.R.#: [id number] Admission: 10/03/17 Attend Phys: Santy Morales MD Discharge: Date of : 75 Report #: [id number] 4. Continue with current antibiotics. 5. We will follow along. Thank you for requesting our suggestions. <ELECTRONICALLY SIGNED> By: Long Vasquez MD 10/04/17 1726 1109 1430 Long Vasquez MD /nt
[~2017-10-03 11:22] MED LIST changes: +ONDANSETRON HCL4 M2 PO
[2017-10-03 11:57] VITALS: BP 170/98
[2017-10-03 13:09] LABS: BE(vivo) -1.9 mmol/L (-2 to +3); HCO3 21.3 mmol/L (22.0-26.0); PO2 82.8 mmHg (80.0-100.0); pH 7.455 (7.360-7.450); sO2 96.8 % (92.0-98.0)
[2017-10-03 14:20] LABS: ABSOLUTE NEUTROPHILS 5.7 thou/uL (1.4-8.2); BASOPHILS 1.1 % (0.0-2.0); EOSINOPHILS 4.7 % (0.0-3.0); HEMATOCRIT 29.2 % (37.0-47.0); HEMOGLOBIN 9.9 gm/dL (12.0-15.0); LYMPHOCYTES 28.2 % (24.0-44.0); MCH 26.2 pg (26.0-34.0); MCHC 33.9 g/dL (28.0-37.0); MCV 77.3 fL (80.0-100.0); MONOCYTES 5.1 % (1.0-8.0); PLATELET COUNT 240 thou/uL (150-400); POLYS 60.9 % (36.0-66.0); RBC 3.78 mil/uL (4.20-5.00); RDW 16.8 % (10.5-14.5); WBC 9.4 thou/uL (4.0-11.0)
[2017-10-03 14:29] LABS: ANION GAP 9 mmol/L (7-16); BUN 8 mg/dL (7-18); CALCIUM 8.6 mg/dL (8.5-10.1); CHLORIDE 108 mmol/L (98-107); CO2 24 mmol/L (21-32); CREATININE 0.8 mg/dL (0.6-1.0); GLUCOSE 86 mg/dL (74-106); POTASSIUM 3.4 mmol/L (3.5-5.1); SODIUM 141 mmol/L (136-145)
[2017-10-03 14:38] LABS: TROPONIN-I < 0.04 ng/mL (<0.06)
[2017-10-03 17:38] VITALS: BP 170/98
[2017-10-03 18:00] VITALS: BP 122/69
[2017-10-03 18:11] VITALS: BP 148/76
[2017-10-03 19:42] VITALS: BP 148/82
[2017-10-04 04:03] VITALS: BP 159/99
[2017-10-04 06:44] LABS: HEMATOCRIT 30.2 % (37.0-47.0); HEMOGLOBIN 9.9 gm/dL (12.0-15.0); MCH 25.8 pg (26.0-34.0); MCHC 32.8 g/dL (28.0-37.0); MCV 78.6 fL (80.0-100.0); RBC 3.84 mil/uL (4.20-5.00); RDW 16.9 % (10.5-14.5)
[2017-10-04 06:53] LABS: CALCIUM 8.4 mg/dL (8.5-10.1); CREATININE 0.9 mg/dL (0.6-1.0); POTASSIUM 4.1 mmol/L (3.5-5.1)
[2017-10-04 08:00] VITALS: BP 124/63
[2017-10-04 15:47] VITALS: BP 130/73
[2017-10-04 21:15] VITALS: BP 128/81
[2017-10-05 05:11] VITALS: BP 117/64
[2017-10-05 08:00] VITALS: BP 150/90
[2017-10-05 15:59] VITALS: BP 107/66
[2017-10-05 20:31] VITALS: BP 148/91
[2017-10-06 04:00] VITALS: BP 106/52
[2017-10-06 08:00] VITALS: BP 140/85
[2017-10-06 16:00] VITALS: BP 126/71
[2017-10-06 20:00] VITALS: BP 131/83
[2017-10-07 04:00] VITALS: BP 117/69
[2017-10-07 08:00] VITALS: BP 141/85
[2017-10-07 08:55] VITALS: BP 141/85
[2017-10-07] MEDS ORDERED: PREDNISONE 10 M10 MG PO (09:21)
[2017-10-07] MEDS ORDERED: LEVAQUIN 750 M750 MG PO (09:21)
[2017-10-07 11:09] LABS: ANA INTERPRETATION Negative (Negative)
[2018-01-30] MEDS ORDERED: MIRALAX17 GM PO (07:33)
[2018-02-01] MEDS ORDERED: ATIVAN0.5 MG PO (01:06)
== END 2017-10-07 12:20 | disposition home or self-care (01) | DRG 189 ==
LOC: ER 11:22 → EROBS 15:35 → 4N 15:35 → ENTRNSPT 10-07 12:08 → EDTRNSPTSTS 10-07 12:15 → 4N 10-07 12:20
PROVIDERS: Hospitalist; Internal Medicine Pulmonary Disease; Physician Assistant
DX: J96.01 Acute respiratory failure with hypoxia (principal); J45.901 Unspecified asthma with (acute) exacerbation; I10 Essential (primary) hypertension; K21.9 Gastro-esophageal reflux disease without esophagitis; G43.909 Migraine, unspecified, not intractable, without status migrainosus; D72.1 Eosinophilia; G47.00 Insomnia, unspecified; M32.9 Systemic lupus erythematosus, unspecified; D64.9 Anemia, unspecified; M19.90 Unspecified osteoarthritis, unspecified site; Z79.899 Other long term (current) drug therapy; Z87.891 Personal history of nicotine dependence; Z88.5 Allergy status to narcotic agent; Z88.8 Allergy status to other drugs, medicaments and biological substances; Z91.018 Allergy to other foods; Z80.8 Family history of malignant neoplasm of other organs or systems
CPT/HCPCS: 10091

== ENCOUNTER 2018-02-19 19:42 | Emergency (ER) | payer OTHER ==
[~2018-02-19] VITALS: Ht 152.4 cm; Wt 91.6 kg
--- NOTE | ~2018-02-19 | EKG ---
[address] [address] ELECTROCARDIOGRAM REPORT Name: ISAIAHKIMBERLY Room #: NICK Lantigua#: [id number] Admission: 02/19/18 Attend Phys: Discharge: 02/19/18 Date of : 75 Report #: [id number] THIS REPORT FOR: //name// [facility] ED Test Date: 2018-02-19 Test Time: 19:46:52 Pat Name: KIMBERLY COLON Department: Room: Gender: F Animal Humane Agent Supervisor: MIGUE : 1975 Requested By: Guadalupe Moore Order Number: [id number] MD: Bradley Garcia Measurements Intervals [place] Rate: 91 P: 50 [place]: 134 QRS: 46 QRSD: 81 T: 38 QT: 349 QTc: 430 Interpretive Statements Sinus rhythm Compared to ECG 01/31/2018 23:19:21 Sinus tachycardia no longer present Electronically Signed On 02-19-2018 22:18:30 CDT by Bradley Garcia [email or web address] <ELECTRONICALLY SIGNED> By: Bradley Garcia MD 02/19/18 2218 194 45 MD OVIDIO Ray
[2018-02-19] MEDS ORDERED: NABUMETONE 750750 M1 PO (20:06)
[2018-02-19] MEDS ORDERED: ASPIR 8181 MG PO (20:07)
[2018-02-19 20:40] LABS: ABSOLUTE NEUTROPHILS 5.9 thou/uL (1.4-8.2); BASOPHILS 0.7 % (0.0-2.0); HEMATOCRIT 30.8 % (37.0-47.0); HEMOGLOBIN 10.2 gm/dL (12.0-15.0); LYMPHOCYTES 23.9 % (24.0-44.0); MCH 25.6 pg (26.0-34.0); MCHC 33.3 g/dL (28.0-37.0); MONOCYTES 6.7 % (1.0-8.0); PLATELET COUNT 339 thou/uL (150-400); POLYS 68.7 % (36.0-66.0); WBC 8.6 thou/uL (4.0-11.0)
[2018-02-19 20:49] LABS: ANION GAP 10 mmol/L (7-16); BUN 7 mg/dL (7-18); CALCIUM 9.3 mg/dL (8.5-10.1); CHLORIDE 105 mmol/L (98-107); CO2 24 mmol/L (21-32); CREATININE 0.8 mg/dL (0.6-1.0); GLUCOSE 100 mg/dL (74-106); POTASSIUM 4.5 mmol/L (3.5-5.1); SODIUM 139 mmol/L (136-145)
[2018-02-19 20:58] LABS: TROPONIN-I < 0.04 ng/mL (<0.06)
== END 2018-02-19 21:52 | disposition home or self-care (01) ==
LOC: ER 19:42
PROVIDERS: Physician Assistant
DX: R00.2 Palpitations (principal); I10 Essential (primary) hypertension; J45.909 Unspecified asthma, uncomplicated; K21.9 Gastro-esophageal reflux disease without esophagitis; G43.909 Migraine, unspecified, not intractable, without status migrainosus; M19.90 Unspecified osteoarthritis, unspecified site; Z91.018 Allergy to other foods; Z88.8 Allergy status to other drugs, medicaments and biological substances

== ENCOUNTER 2018-03-24 13:09 | Emergency (ER) | payer OTHER ==
[~2018-03-24] VITALS: Ht 152.4 cm; Wt 88.5 kg
--- NOTE | ~2018-03-24 | EKG ---
[place] [address] [facility] [facility] [place] [address] ELECTROCARDIOGRAM REPORT Name: KIMBERLY COLON Room #: DEP LYNNETTE Lantigua#: [id number] Admission: 03/24/18 Attend Phys: Discharge: 03/24/18 Date of : 75 Report #: [id number] THIS REPORT FOR: //name// [facility] ED Test Date: 2018-03-24 Test Time: 13:12:08 Pat Name: KIMBERLY COLON Department: Room: Gender: F Emergency Medical Dispatcher: ... : 1975 Requested By: Susy Duke Order Number: [id number] MD: Glenn Talley Measurements Intervals [place] Rate: 93 P: 51 IN: 132 QRS: 46 QRSD: 90 T: 35 QT: 353 QTc: 440 Interpretive Statements Sinus rhythm No significant abnormality Baseline wander in lead(s) V1 Compared to ECG 02/19/2018 19:46:52 No significant changes Electronically Signed On 03-25-2018 8:38:15 CDT by Glenn Talley [email or web address] <ELECTRONICALLY SIGNED> By: Glenn Talley MD, [facility] 03/25/18 0838 D: 06/1311 11 Glenn Talley MD, FACC /EPI
[~2018-03-24 13:09] MED LIST changes: +ASPIR 8181 MG PO; +NABUMETONE 750750 M1 PO
[2018-03-24 14:30] LABS: ABSOLUTE NEUTROPHILS 5.5 thou/uL (1.4-8.2); BASOPHILS 0.8 % (0.0-2.0); EOSINOPHILS 0.1 % (0.0-3.0); HEMATOCRIT 31.3 % (37.0-47.0); HEMOGLOBIN 10.2 gm/dL (12.0-15.0); LYMPHOCYTES 21.7 % (24.0-44.0); MCHC 32.5 g/dL (28.0-37.0); MONOCYTES 6.2 % (1.0-8.0); PLATELET COUNT 302 thou/uL (150-400); POLYS 71.2 % (36.0-66.0); RBC 4.07 mil/uL (4.20-5.00); RDW 18.2 % (10.5-14.5); WBC 7.7 thou/uL (4.0-11.0)
[2018-03-24 14:39] LABS: ANION GAP 7 mmol/L (7-16); BUN 11 mg/dL (7-18); CALCIUM 9.4 mg/dL (8.5-10.1); CHLORIDE 106 mmol/L (98-107); CO2 24 mmol/L (21-32); CREATININE 0.9 mg/dL (0.6-1.0); GLUCOSE 89 mg/dL (74-106); POTASSIUM 3.9 mmol/L (3.5-5.1); SODIUM 137 mmol/L (136-145)
[2018-03-24 14:48] LABS: ALBUMIN 3.1 g/dL (3.4-5.0); LIPASE 66 U/L (73-393); SGOT 13 U/L (15-37); SGPT 15 U/L (30-65); TOTAL BILIRUBIN 0.3 mg/dL (<0.1-1.0); TOTAL PROTEIN 7.2 g/dL (6.4-8.2); TROPONIN-I <0.06 ng/mL (<0.06)
[2018-03-24 15:31] LABS: ANISOCYTOSIS 2+; POLYCHROMASIA OCCASIONAL
[2018-03-24 15:32] LABS: HYPOCHROMASIA 1+; MICROCYTES 1+
== END 2018-03-24 16:38 | disposition home or self-care (01) ==
LOC: ER 13:09
PROVIDERS: Nurse Practitioner Family
DX: R07.89 Other chest pain (principal); F41.9 Anxiety disorder, unspecified; I10 Essential (primary) hypertension; J45.909 Unspecified asthma, uncomplicated; K21.9 Gastro-esophageal reflux disease without esophagitis; G43.909 Migraine, unspecified, not intractable, without status migrainosus; M19.90 Unspecified osteoarthritis, unspecified site; Z87.01 Personal history of pneumonia (recurrent); Z88.8 Allergy status to other drugs, medicaments and biological substances

== ENCOUNTER 2018-06-25 10:20 | Emergency (ER) | payer OTHER ==
[~2018-06-25] VITALS: Ht 172.7 cm; Wt 99.8 kg
--- NOTE | ~2018-06-25 | EKG ---
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
[2018-06-25 11:14] LABS: APTT 29.5 Seconds (24.5-32.8)
[2018-06-25 12:47] LABS: URINE BILIRUBIN NEGATIVE (Negative); URINE BLOOD NEGATIVE (Negative); URINE COLOR YELLOW; URINE GLUCOSE-RANDOM* NEGATIVE (Negative); URINE KETONES NEGATIVE (Negative); URINE LEUKOCYTES TRACE (Negative); URINE NITRITE NEGATIVE (Negative); URINE PROTEIN (DIPSTICK) NEGATIVE (Negative); URINE UROBILINOGEN 0.2 E.U./dl (0.2-1.0)
[2018-06-25 12:49] LABS: URINE CLARITY HAZY
[2018-06-25 14:18] LABS: ABSOLUTE NEUTROPHILS 6.3 thou/uL (1.4-8.2); BASOPHILS 0.8 % (0.0-2.0); EOSINOPHILS 0.2 % (0.0-3.0); HEMOGLOBIN 10.8 gm/dL (12.0-15.0); LYMPHOCYTES 20.1 % (24.0-44.0); MCH 24.9 pg (26.0-34.0); MCHC 31.9 g/dL (28.0-37.0); MONOCYTES 6.1 % (1.0-8.0); PLATELET COUNT 314 thou/uL (150-400); POLYS 72.8 % (36.0-66.0); RBC 4.36 mil/uL (4.20-5.00); WBC 8.7 thou/uL (4.0-11.0)
[2018-06-25 14:22] LABS: POTASSIUM 4.3 mmol/L (3.5-5.1)
== END 2018-06-25 14:35 | disposition home or self-care (01) ==
LOC: ER 10:20
PROVIDERS: Student in an Organized Health Care Education/Training Program
DX: G43.409 Hemiplegic migraine, not intractable, without status migrainosus (principal); R00.0 Tachycardia, unspecified; R41.82 Altered mental status, unspecified; I10 Essential (primary) hypertension; J45.909 Unspecified asthma, uncomplicated; K21.9 Gastro-esophageal reflux disease without esophagitis; M19.90 Unspecified osteoarthritis, unspecified site; Z91.018 Allergy to other foods; Z88.8 Allergy status to other drugs, medicaments and biological substances

== ENCOUNTER 2018-07-02 02:41 | Inpatient (IN) | payer OTHER ==
[~2018-07-02] VITALS: Ht 152.4 cm; Wt 102.2 kg
[2018-07-02] VITALS (23 sets, daily range): BP systolic 107–156; BP diastolic 61–104
--- NOTE | ~2018-07-02 | HC ---
[facility] [address] [place] [address] CONSULTATION Name: KIMBERLY COLON Room #: 243-P ADM IN M.R.#: [id number] Admission: 07/02/18 Attend Phys: Gilberto Arteaga Discharge: Date of : 75 Report #: [id number] THIS REPORT FOR: //name// CC: FAMILIA Arteaga Physician staff Pulmonary Consultation REFERRAL PHYSICIAN: Gilberto Arteaga MD REASON FOR REFERRAL: Exacerbation of asthma. HISTORY OF PRESENT ILLNESS: The patient is a 43-year-old -Bol[place]ian female who presents to the emergency room with progressive dyspnea. A pulmonary consultation was requested. The patient has complex medical problems. Along with asthma, she is also diagnosed with lupus, for which she is followed at [facility]. She was also found to have elevated IgE and eosinophilia. She has been seen by Dr. Ponce. She is currently undergoing immunologic therapy for asthma. According to the patient, she has done very well for the past several months. This is confirmed by her absence of admission since September of this year. In 2017, she has had multiple hospitalizations for exacerbation of COPD. The patient has been given aerosol in the past, which did not seem to help. She was doing fairly well until few days prior to presentation when she noticed increasing dyspnea, chest tightness. Otherwise, denies any febrile illness, sore throat, productive cough, nausea, vomiting or diarrhea. Since admission from last night, she states that she is feeling more short of breath with increasing chest tightness. PAST MEDICAL HISTORY: As mentioned above. Systemic lupus erythematosus, followed at [facility] Rheumatology Department, has been on Plaquenil, manifestation include arthritis and malar rash, hypertension, migraine headaches, long history of asthma with eosinophilia, elevated IgE, currently on Fasenra. PAST SURGICAL HISTORY: Status post right Port-A-Cath placement in 04/2018. She has had multiple miscarriages. ALLERGIES: PROCHLORPERAZINE, HYDROMORPHONE, MORPHINE, REGLAN, allergies not mentioned. [facility] [address] [place] [address] CONSULTATION Name: KIMBERLY COLON Room #: [facility] IN .R.#: [id number] Admission: 07/02/18 Attend Phys: Gilberto Arteaga Discharge: Date of : 75 Report #: [id number] HOME MEDICATIONS: As follows: Ativan 0.5 mg, MiraLax, nebulized budesonide 0.5 mg b.i.d., hydroxychloroquine, ProAir HFA, Singulair, Protonix. FAMILY HISTORY: Noncontributory. SOCIAL HISTORY: She denies any tobacco or alcohol use. REVIEW OF SYSTEMS: As mentioned above, otherwise 10-point system review negative. PHYSICAL EXAMINATION: GENERAL: She is awake, alert. She appears to be mildly dyspneic, mildly distressed. VITAL SIGNS: Temperature is 98 degrees Fahrenheit, pulse is 110, respiratory rate 22, blood pressure 150/93 mmHg, saturation 97%. HEENT: Normocephalic, atraumatic. NECK: Supple, without any lymphadenopathy or thyromegaly. CHEST: Breath sounds are decreased bilaterally with moderate bilateral expiratory wheezes. No rales. CARDIOVASCULAR: Normal S1, S2. No murmur or gallop. There is no JVD. There is no carotid bruit. Pulses are 2+/4+ bilaterally. ABDOMEN: Soft, nontender, no organomegaly or masses felt. GENITOURINARY: Deferred. RECTAL: Deferred. EXTREMITIES: No edema, cyanosis or clubbing. LABORATORY DATA: Portable chest x-ray is clear. Electrolytes are normal, creatinine is normal. WBC 8700, hemoglobin is normal, platelets are normal, no evidence of eosinophilia. No evidence of bandemia. Arterial blood gas performed on admission revealed pH 7.45, pCO2 of 30, pO2 191 on FiO2 of 50%. IMPRESSION: 1. Acute hypoxic respiratory failure in this 43-year-old -Bol[place]ian female. Etiology due to exacerbation of asthma, appears to be severe. Respiratory tract infection felt to be less likely with a clear chest x-ray. 2. Asthma, severe, with past history of elevated IgE, eosinophilia. Her asthma appears under good control over the past year while on biologic therapy. She has had no admission this year while being on the immunologic agent as opposed to 2017 where she has had multiple recurrent hospitalizations. 3. Systemic lupus erythematosus, followed at [facility] Rheumatology Department. Her systemic manifestations are usually arthritis and rash. 4. Hypertension. 5. Migraine headaches. Question whether headaches may be related to lupus. RECOMMENDATIONS: We would recommend continuing corticosteroids, bronchodilator therapy. DVT and GI prophylaxis recommended. With the patient not improving [facility] [address] [place] [address] CONSULTATION Name: KIMBERLY COLON Room #: 243-P [facility] IN M.R.#: [id number] Admission: 07/02/18 Attend Phys: Gilberto Arteaga Discharge: Date of : 75 Report #: [id number] since admission with worsening complaints of chest tightness and bronchospasm, I would recommend ICU transfer for closer monitoring. We will try continuous nebulized bronchodilator therapy. We will increase corticosteroids. She will need glucose monitoring. Discussed with the patient with the above findings and my concerns that she is not improving since admission. We also discussed that she could use BiPAP if needed. If she worsens, she may need intubation. She understands. <ELECTRONICALLY SIGNED> By: Adarsh Mckeon MD 07/03/18 1933 1804 0349 Adarsh Mckeon MD /nt
[2018-07-02 03:40] LABS: BE(vivo) -2.3 mmol/L (-2 to +3); HCO3 20.7 mmol/L (22.0-26.0); PCO2 30.1 mmHg (35.0-45.0); PO2 191.5 mmHg (80.0-100.0); pH 7.456 (7.360-7.450); sO2 99.4 % (92.0-98.0)
[2018-07-02 03:56] LABS: CALCIUM 8.8 mg/dL (8.5-10.1); CREATININE 0.9 mg/dL (0.6-1.0); POTASSIUM 3.4 mmol/L (3.5-5.1)
[2018-07-02 04:00] LABS: ABSOLUTE NEUTROPHILS 7.9 thou/uL (1.4-8.2); BASOPHILS 0.2 % (0.0-2.0); HEMATOCRIT 31.5 % (37.0-47.0); HEMOGLOBIN 10.2 gm/dL (12.0-15.0); LYMPHOCYTES 19.4 % (24.0-44.0); MCH 25.1 pg (26.0-34.0); MCHC 32.3 g/dL (28.0-37.0); MCV 77.9 fL (80.0-100.0); MONOCYTES 4.6 % (1.0-8.0); PLATELET COUNT 284 thou/uL (150-400); POLYS 75.8 % (36.0-66.0); RBC 4.04 mil/uL (4.20-5.00); RDW 16.6 % (10.5-14.5); WBC 10.4 thou/uL (4.0-11.0)
[2018-07-02 20:27] LABS: BE(vivo) -6.8 mmol/L (-2 to +3); HCO3 16.6 mmol/L (22.0-26.0); PCO2 27.1 mmHg (35.0-45.0); PO2 82.2 mmHg (80.0-100.0); pH 7.406 (7.360-7.450); sO2 96.4 % (92.0-98.0)
[2018-07-03] VITALS (21 sets, daily range): BP systolic 121–164; BP diastolic 63–96
[2018-07-03] MEDS ORDERED: MIRAPEX0.125 MG PO (01:13)
[2018-07-03 05:07] LABS: HEMATOCRIT 28.1 % (37.0-47.0); HEMOGLOBIN 9.4 gm/dL (12.0-15.0); MCH 25.9 pg (26.0-34.0); MCHC 33.3 g/dL (28.0-37.0); MCV 77.7 fL (80.0-100.0); RBC 3.62 mil/uL (4.20-5.00); RDW 16.7 % (10.5-14.5); WBC 21.8 thou/uL (4.0-11.0)
[2018-07-03 05:22] LABS: CALCIUM 8.7 mg/dL (8.5-10.1); CREATININE 0.9 mg/dL (0.6-1.0); POTASSIUM 4.6 mmol/L (3.5-5.1)
[2018-07-04] VITALS (15 sets, daily range): BP systolic 135–164; BP diastolic 67–97
[2018-07-04 04:33] LABS: CALCIUM 8.7 mg/dL (8.5-10.1); CREATININE 1.1 mg/dL (0.6-1.0); POTASSIUM 4.5 mmol/L (3.5-5.1)
[2018-07-05] VITALS (9 sets, daily range): BP systolic 136–208; BP diastolic 86–120
[2018-07-05 03:56] LABS: CALCIUM 8.9 mg/dL (8.5-10.1); POTASSIUM 4.6 mmol/L (3.5-5.1)
[2018-07-06 03:49] VITALS: BP 122/70
[2018-07-06 08:06] VITALS: BP 144/87
[2018-07-06 11:15] VITALS: BP 181/101
[2018-07-06 15:27] VITALS: BP 140/78
[2018-07-06 19:38] VITALS: BP 155/96
[2018-07-07 05:14] VITALS: BP 153/98
[2018-07-07 08:16] VITALS: BP 163/96
[2018-07-07 11:26] LABS: HEMOGLOBIN 9.8 gm/dL (12.0-15.0); MCH 25.4 pg (26.0-34.0); MCHC 32.7 g/dL (28.0-37.0); MCV 77.7 fL (80.0-100.0); RBC 3.86 mil/uL (4.20-5.00); RDW 17.2 % (10.5-14.5); WBC 15.9 thou/uL (4.0-11.0)
[2018-07-07 11:30] LABS: ALBUMIN 2.7 g/dL (3.4-5.0); CALCIUM 9.2 mg/dL (8.5-10.1); MAGNESIUM 2.1 mg/dL (1.8-2.4); POTASSIUM 4.3 mmol/L (3.5-5.1); TOTAL BILIRUBIN 0.2 mg/dL (<0.1-1.0); TOTAL PROTEIN 6.7 g/dL (6.4-8.2)
[2018-07-07 11:58] VITALS: BP 165/94
[2018-07-07 15:29] VITALS: BP 139/86
[2018-07-07 20:00] VITALS: BP 180/107
[2018-07-08] VITALS (7 sets, daily range): BP systolic 125–153; BP diastolic 75–99
[2018-07-08 01:07] LABS: ADENOVIRUS Negative (Negative); INFLUENZA A Negative (Negative); INFLUENZA B Negative (Negative); METAPNEUMOVIRUS Negative (Negative); PARAINFLUENZA 1 Negative (Negative); PARAINFLUENZA 2 Negative (Negative); PARAINFLUENZA 3 Negative (Negative); RHINOVIRUS Positive (Negative); RSV A Negative (Negative); RSV B Negative (Negative)
[2018-07-08 06:11] LABS: HEMATOCRIT 32.7 % (37.0-47.0); HEMOGLOBIN 10.4 gm/dL (12.0-15.0); MCHC 31.9 g/dL (28.0-37.0); MCV 78.4 fL (80.0-100.0); RBC 4.17 mil/uL (4.20-5.00); WBC 19.9 thou/uL (4.0-11.0)
[2018-07-08 06:19] LABS: CALCIUM 9.3 mg/dL (8.5-10.1); CREATININE 1.2 mg/dL (0.6-1.0); MAGNESIUM 1.9 mg/dL (1.8-2.4); POTASSIUM 4.4 mmol/L (3.5-5.1)
[2018-07-08] MEDS ORDERED: DOXYCYCLINE HYC50 MG PO (15:30)
[2018-07-08] MEDS ORDERED: ZONISAMIDE 100100 M1 PO (15:31)
[2018-07-08] MEDS ORDERED: DELSYM COU30 MG/5 M1 PO (15:32)
[2018-07-08] MEDS ORDERED: MUCINEX600 MG PO (15:32)
[2018-07-08] MEDS ORDERED: PREDNISONE 10 M10 MG PO (15:34)
[2018-07-09 04:05] VITALS: BP 142/84
[2018-07-09 09:00] VITALS: BP 137/85
[2018-07-09 10:22] VITALS: BP 153/99
[2018-07-09 12:19] VITALS: BP 138/84
== END 2018-07-09 14:59 | disposition home health service (06) | DRG 982 ==
LOC: ER 02:41 → 3W 04:43 → EROBS 04:43 → 3W 06:07 → ICU 18:23 → 2N 07-04 18:22 → ENTRNSPT 07-09 14:50 → EDTRNSPTSTS 07-09 14:52 → 2N 07-09 14:59
PROVIDERS: Emergency Medicine; Hospitalist; Internal Medicine; Internal Medicine Pulmonary Disease; Nurse Practitioner Acute Care; Radiology Diagnostic Radiology
DX: T82.524A Displacement of infusion catheter, initial encounter (principal); J45.901 Unspecified asthma with (acute) exacerbation; Z68.41 Body mass index [BMI] 40.0-44.9, adult; I10 Essential (primary) hypertension; K21.9 Gastro-esophageal reflux disease without esophagitis; G43.909 Migraine, unspecified, not intractable, without status migrainosus; M19.90 Unspecified osteoarthritis, unspecified site; M32.9 Systemic lupus erythematosus, unspecified; F41.1 Generalized anxiety disorder; E66.01 Morbid (severe) obesity due to excess calories; Z77.22 Contact with and (suspected) exposure to environmental tobacco smoke (acute) (chronic); Z80.9 Family history of malignant neoplasm, unspecified; Z88.8 Allergy status to other drugs, medicaments and biological substances; Z88.6 Allergy status to analgesic agent; Z28.21 Immunization not carried out because of patient refusal; Z79.899 Other long term (current) drug therapy; Y83.8 Other surgical procedures as the cause of abnormal reaction of the patient, or of later complication, without mention of misadventure at the time of the procedure; Y92.89 Other specified places as the place of occurrence of the external cause
CPT/HCPCS: 10078; 10081; 27000

== ENCOUNTER 2018-09-28 07:57 | Inpatient (IN) | payer OTHER ==
[~2018-09-28] VITALS: Ht 152.4 cm; Wt 96.6 kg
--- NOTE | ~2018-09-28 | HC ---
[facility] [place] [address] [address] [place] [address] CONSULTATION Name: KIMBERLY COLON Room #: 350-P ADM IN M.R.#: [id number] Admission: 09/28/18 Attend Phys: Bassem Samano MD Discharge: Date of : 75 Report #: [id number] THIS REPORT FOR: //name// CC: FAM unknown Bassem Samano REFERRING PHYSICIAN: Bassem Samano MD REASON FOR REFERRAL: Severe asthma. HISTORY OF PRESENT ILLNESS: The patient is a 43-year-old female who presents to Emergency Room with progressive dyspnea. She has a history of asthma. A Pulmonary consultation was requested. The patient has a complicated medical history. She has a history of severe asthma with previously known elevated IgE level and eosinophilia. 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 She has been receiving bio-immunologic therapy for asthma, which has helped her asthma control. In addition to asthma, she is also followed at [facility] for lupus. She had been on Plaquenil in the past. She was last hospitalized in 06/2018 for exacerbation of asthma. She has done fairly well until the day of presentation when she began to develop increasing dyspnea, productive cough. She states that some of the family members had been sick with a viral syndrome. Otherwise, denies any chest pain, productive cough, nausea, vomiting, diarrhea. PAST MEDICAL HISTORY: As mentioned above. Long history of asthma with eosinophilia, elevated IgE, on Fasenra; systemic lupus erythematosus, follows at [facility], on Plaquenil. She has arthritis and malar rash as a result of her lupus, hypertension, migraine headaches. Past history of SVT status post ablation in 01/2018, gastroesophageal reflux disease. PAST SURGICAL HISTORY: Status post ablation in 01/2018 for SVT, had miscarriages in the past, has a right Port-A-Cath placement. ALLERGIES: REGLAN, REACTIONS UNSPECIFIED; COMPAZINE, REACTIONS UNSPECIFIED; GRAPE, REACTIONS UNSPECIFIED. HOME MEDICATIONS: Include Ativan, MiraLax, nebulized Pulmicort 0.5 mg b.i.d., doxycycline 100 mg p.o. b.i.d., zonisamide cough syrup, Mucinex, recent course of prednisone, ProAir HFA, Singulair, Protonix, Xopenex. FAMILY HISTORY: Noncontributory. [facility] [address] [facility] [facility] [place] [address] CONSULTATION Name: KIMBERLY COLON Room #: 350-P [facility] IN M.R.#: [id number] Admission: 09/28/18 Attend Phys: Bassem Samano MD Discharge: Date of : 75 Report #: [id number] SOCIAL HISTORY: She denies any tobacco or alcohol use. REVIEW OF SYSTEMS: As mentioned above, otherwise 10-point system review negative. PHYSICAL EXAMINATION: GENERAL: She is awake, alert, appears mildly distressed. VITAL SIGNS: Temperature is 100.42 degrees Fahrenheit, pulse is 110, respiratory rate is 20, blood pressure is 136/84 mmHg, saturation is 100%. HEENT: Normocephalic, atraumatic. NECK: Supple, without any lymphadenopathy or thyromegaly. CHEST: Breath sounds are decreased bilaterally with mild expiratory wheezes. No rales. CARDIOVASCULAR: Normal S1, S2. No murmurs or gallop. There is no JVD. There is no carotid bruit. Pulses are 2+/4+ bilaterally. ABDOMEN: Soft, nontender, no organomegaly or masses felt. GENITOURINARY: Deferred. RECTAL: Deferred. EXTREMITIES: There is no edema, cyanosis or clubbing. LABORATORY DATA: Chest x-ray is clear. Influenza A and B swab is negative. Electrolytes are normal. WBC is 9000, hemoglobin 9.1, eosinophils normal, no evidence of bandemia. Albumin 2.9. IMPRESSION: 1. Exacerbation of asthma in this 43-year-old female. She has had a long history of asthma with a past history of elevated eosinophils and eosinophilia along with elevated IgE. Normally, she is on biologic agents for asthma along with inhaled corticosteroids and bronchodilators. The source for exacerbation of asthma is likely related to viral syndrome. Pneumonia is felt to be less likely. 2. Systemic lupus erythematosus with arthritis and malar rash. 3. Hypertension. 4. Migraine headaches. 5. Recent supraventricular tachycardia status post ablation in 01/2018. 6. Gastroesophageal reflux disease, recommend antireflux therapy given her severe asthma. 7. Status post right Port-A-Cath placement in 04/2018. RECOMMENDATION: Agree with corticosteroids, bronchodilators, and broad spectrum antibiotics. The patient should be monitored closely for worsening respiratory compromise. DVT and GI prophylaxis recommended. [address] [address] CONSULTATION Name: KIMBERLY COLON Room #: 350-P ADM IN M.R.#: [id number] Admission: 09/28/18 Attend Phys: Bassem Samano MD Discharge: Date of : 75 Report #: [id number] Thank you for this consultation. By: [id number] Adarsh Mkceon MD /nt
[~2018-09-28 07:57] MED LIST changes: +DELSYM COU30 MG/5 M1 PO; +DOXYCYCLINE HYC50 MG PO; +MIRAPEX0.125 MG PO; +MUCINEX600 MG PO; +ZONISAMIDE 100100 M1 PO
[2018-09-28 08:00] VITALS: BP 155/86
[2018-09-28 08:33] LABS: ABSOLUTE NEUTROPHILS 8.2 thou/uL (1.4-8.2); BASOPHILS 0.2 % (0.0-2.0); HEMATOCRIT 27.8 % (37.0-47.0); HEMOGLOBIN 9.1 gm/dL (12.0-15.0); LYMPHOCYTES 6.2 % (24.0-44.0); MCH 23.6 pg (26.0-34.0); MCHC 32.6 g/dL (28.0-37.0); MCV 72.3 fL (80.0-100.0); MONOCYTES 2.7 % (1.0-8.0); PLATELET COUNT 308 thou/uL (150-400); POLYS 90.9 % (36.0-66.0); RBC 3.85 mil/uL (4.20-5.00); RDW 17.1 % (10.5-14.5)
[2018-09-28 08:41] LABS: CALCIUM 8.4 mg/dL (8.5-10.1); CREATININE 0.9 mg/dL (0.6-1.0); POTASSIUM 3.8 mmol/L (3.5-5.1)
[2018-09-28 08:52] LABS: BE(vivo) -2.1 mmol/L (-2 to +3); HCO3 21.5 mmol/L (22.0-26.0); PCO2 VENOUS 32.6 mmHg (41.0-51.0); PO2 VENOUS 69.5 mmHg (35.0-45.0)
[2018-09-28 09:34] VITALS: BP 154/86
[2018-09-28 10:15] VITALS: BP 135/70
[2018-09-28 10:27] VITALS: BP 136/84
[2018-09-28 11:06] LABS: ALBUMIN 2.9 g/dL (3.4-5.0); TOTAL PROTEIN 6.3 g/dL (6.4-8.2)
[2018-09-28 11:32] LABS: TSH 0.972 uIU/mL (0.358-3.740)
[2018-09-28 13:39] LABS: CALCIUM 8.5 mg/dL (8.5-10.1); POTASSIUM 4.1 mmol/L (3.5-5.1)
[2018-09-28 16:00] VITALS: BP 149/83
--- NOTE | 2018-09-28 16:29 | NUR ---
PT ORIENTED TO ROOM AND UNIT. BED LOW AND LOCKED, SIDE RAILS UPX 3, CALL LIGHT IN REACH. PT REMAINS ON BIPAP. WILL CONTINUE TO ASSESS.
[2018-09-28 19:56] VITALS: BP 159/84
[2018-09-28] MEDS ORDERED: ELIQUIS5 MG PO (20:45)
--- NOTE | 2018-09-28 21:09 | NUR ---
TALKED WITH PATIENT EXTENSIVELY, STATES AFTER ADMISSION HERE IN JUNE, SHE WENT TO [facility] AND WAS DIAGNOSED WITH A PE. IS CURRENTLY ON ELEQUIS. ALSO IN SIGNIFICANT PAIN AND NO RELIEF FROM NAUSEA MEDICINE. [facility] NOTIFIED, ORDERS OBTANED FOR STAT CTA, PAIN MEDICINE AND DIFFERENT NAUSEA MEDICATION. PATIENT AND FAMILY UPDATED ON POC. WILL CALL RESULTS OF CTA TO [facility].
--- NOTE | 2018-09-28 22:18 | EKG ---
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 : 1975 Requested By: Cuca Farris Order Number: [id number] MD: Bradley Garcia Measurements Intervals [place] Rate: 111 P: 64 SC: 133 QRS: 56 QRSD: 76 T: 34 QT: 328 QTc: 446 Interpretive Statements Sinus tachycardia Abnormal R-wave progression, early transition Compared to ECG 06/25/2018 11:39:05 Sinus rhythm no longer present Electronically Signed On 09-28-2018 22:18:02 RUSSIAN LANGUAGE INSTRUCTOR by Bradley Garcia [email or web address] <ELECTRONICALLY SIGNED> By: Bradley Garcia MD 09/28/18 2218 9 9 Bradley Garcia MD /EPI
[2018-09-29 00:09] VITALS: BP 159/87
--- NOTE | 2018-09-29 03:01 | NUR ---
ASSUMED CARE OF PATIENT AT 1900. VSS, SLIGHT TEMP. CTA DONE. COTTON FARMWORKER NOTIFIED OF RESULTS. C/O MIGRAINE. ORDERS OBTAINED FOR MEDICATION. RESTING AT THIS TIME. WILL CONTINUE TO MONITOR.
[2018-09-29 04:30] VITALS: BP 153/100
--- NOTE | 2018-09-29 04:54 | NUR ---
ASSUMED PATIENT CARE AT 0200. PATIENTS CHIEF COMPLAINTS ARE TROUBLES BREATHING AND PAIN FROM MIGRAINE. BREATHING TREATMENTS AND STEROIDS PROVIDED WITH PATIENTS OXYGEN SATURATION IN ACCEPTABLE RANGE. PATIENT WAS PROVIDED FIORCET AND PAIN MEDICATION FOR HEADACHE. CONTINUE PLAN OF CARE.
[2018-09-29 05:32] LABS: HEMATOCRIT 27.4 % (37.0-47.0); HEMOGLOBIN 8.7 gm/dL (12.0-15.0); MCH 23.3 pg (26.0-34.0); MCHC 31.7 g/dL (28.0-37.0); MCV 73.3 fL (80.0-100.0); RBC 3.73 mil/uL (4.20-5.00); RDW 16.9 % (10.5-14.5); WBC 7.6 thou/uL (4.0-11.0)
[2018-09-29 05:44] LABS: CALCIUM 8.8 mg/dL (8.5-10.1); CREATININE 0.9 mg/dL (0.6-1.0); MAGNESIUM 2.2 mg/dL (1.8-2.4); POTASSIUM 4.3 mmol/L (3.5-5.1)
[2018-09-29 07:16] VITALS: BP 149/84
--- NOTE | 2018-09-29 10:35 | NUR ---
Nutrition: assess d/t consult for diet instruction. Pt admitted for asthma exerbation, hx of HTN, COPD, and lupus. Pt reports poor appetite over past 2-3 days and possible 3-4 lb weight loss. She is now starting to eat again, but is continuing to have poor appetite. Current weight is within range of UBW of 170-233 lbs over past 3 years. Pt eats regular diet at home and had no concerns or questions. Consider low risk.
[2018-09-29 11:43] VITALS: BP 138/78
--- NOTE | 2018-09-29 15:34 | NUR ---
PT CONT ON 2L NC, DOES NOT WANT TO ATTEMPT TITRATION AT THIS TIME FOR COMFORT. PT C/O MIGRAINE FINN, PRN MED EFFECTIVE. NO NAUSEA THIS AFTERNOON, BUT PT DOES HAVE POOR APPETITE. PT SHOWERED INDEPENDENTLY. AT BEDSIDE
[2018-09-29 15:57] VITALS: BP 136/77
[2018-09-29 20:24] VITALS: BP 125/83
[2018-09-30 04:26] LABS: HEMATOCRIT 28.5 % (37.0-47.0); HEMOGLOBIN 8.7 gm/dL (12.0-15.0); MCH 22.5 pg (26.0-34.0); MCHC 30.6 g/dL (28.0-37.0); MCV 73.5 fL (80.0-100.0); RBC 3.88 mil/uL (4.20-5.00); RDW 17.3 % (10.5-14.5); WBC 13.3 thou/uL (4.0-11.0)
[2018-09-30 05:04] LABS: CALCIUM 9.2 mg/dL (8.5-10.1); POTASSIUM 4.7 mmol/L (3.5-5.1)
[2018-09-30 06:21] VITALS: BP 153/75
[2018-09-30 07:19] VITALS: BP 132/76
--- NOTE | 2018-09-30 08:12 | NUR ---
Pt a/o x 4, on O2 2L-3L NC with continuous pulse ox monitoring. Anxiety from time to time, Ativan given PRN, therapeutic communications provided. VSS. Breathing treatment per schedule and PRN. 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 No apparent distress noted.
--- NOTE | 2018-09-30 08:37 | NUR ---
ASSESMENT COMPLETED. VSS. A/O/ANXIOUS. C/O PAIN- PT REQUESTING DILAUDID- PT STATED THAT'S THE ONLY PAIN MED THAT WORKS FOR HER. NO NV. MEDS GIVEN TOLERATED WELL. PT RESTING IN BED AT THIS TIME. O2 IN PLACE. SPOUSE AT BEDSIDE. WILL CONT. TO MONITOR.
--- NOTE | 2018-09-30 10:39 | NUR ---
PT CALM AT THIS TIME. PAIN EMDS GIVEN ORDERED- SEE MAR. PT IN BED TALKING ON PHONE. WILL CONT. TO MONITOR.
[2018-09-30 11:32] VITALS: BP 128/80
[2018-09-30 15:34] VITALS: BP 111/65
[2018-09-30 19:40] VITALS: BP 143/89
[2018-10-01 03:30] VITALS: BP 135/75
[2018-10-01 04:24] LABS: HEMATOCRIT 31.1 % (37.0-47.0); HEMOGLOBIN 9.8 gm/dL (12.0-15.0); MCH 23.2 pg (26.0-34.0); MCHC 31.7 g/dL (28.0-37.0); MCV 73.1 fL (80.0-100.0); RBC 4.25 mil/uL (4.20-5.00); RDW 17.5 % (10.5-14.5)
[2018-10-01 04:42] LABS: CALCIUM 9.7 mg/dL (8.5-10.1); CREATININE 1.1 mg/dL (0.6-1.0); MAGNESIUM 2.1 mg/dL (1.8-2.4); POTASSIUM 4.1 mmol/L (3.5-5.1)
[2018-10-01 07:19] VITALS: BP 150/93
--- NOTE | 2018-10-01 08:01 | NUR ---
SLEPT MOST OF SHIFT. AWOKE AT 0500 AND PATIENT DEACCESSED PORT A CATH, AND TOOK OFF TELE. STATES SHE HAD A BAD DREAM AND TOOK EVERYTHING OFF. PORT REACCESSED WITHOUT PROBLESM. WORKING ON GOALS AND PLAN OF CARE FOR NOC. GIVEN PAIN MEDICATIONS PER ORDERS AND PRN MEDS. NOT PROGRESSING AT THIS TIME TOWARDS DISCHARGE GOALS. RT CALLED X3 FOR BREATHING TREATMENTS. CONTINUE TO ASSES.
[2018-10-01] MEDS ORDERED: ASPIR 8181 MG PO (08:47)
[2018-10-01] MEDS ORDERED: DELSYM30 MG/5 M1 PO (08:48)
[2018-10-01] MEDS ORDERED: MUCINEX600 MG PO (08:48)
[2018-10-01] MEDS ORDERED: FASENRA30 MG/1 ML SUBQ (08:53)
[2018-10-01] MEDS ORDERED: AJOVY225 MG/1.5 SUBQ (08:55)
[2018-10-01] MEDS ORDERED: ARNUITY ELLIP200 MCG INH (08:57)
[2018-10-01] MEDS ORDERED: SPIRIVA INH (09:03)
[2018-10-01] MEDS ORDERED: XANAX 0.25 MG0.25 MG PO (09:10)
[2018-10-01 12:00] VITALS: BP 145/85
[2018-10-01 15:53] VITALS: BP 158/95
--- NOTE | 2018-10-01 15:56 | NUR ---
PT IS PROGRESSING SLOWLY TOWARD POC GOALS. PT C/O OF GENERALIZED PAIN, AND HEADACHE. PT GIVEN MEDICATIONS PER MAR. THROUGHTOUT SHIFT PT HAS ASKED NUMEROUS TIMES FOR IV PAIN MEDICATION ORDERS (DISCONTINUED THIS MORNING), THIS RN EXPLAINED TO PT THAT IV PAIN MEDICATIONS WERE BEING WEANED DUE TO EVENTUAL DISCHARGE, AND THAT PO PAIN MEDICATIONS WERE AVAILABLE UPON REQUEST. PT REFUSED PO PAIN MEDICATIONS AND CONTINUED TO CALL OUT TO SPEAK WITH DOCTOR AND THEN EVENTUALLY DOCTOR'S CERTIFIED CREDIT COUNSELOR. HOSPITALIST NOTIFIED. THIS RN REVIEWED POC WITH PT AND DISCUSSED NON-PHARMACOLOGIC PAIN MEDICATION INTERVENTIONS. THIS RN DISCUSSED PO NARCOTIC PAIN MEDICATIONS AND ANTI-NAUSEA MEDICATIONS WITH PT PT CLAIMED "ANY PILL PAIN MEDICATIONS MAKE ME SICK." PT EVENTUALLY AGREED TO TRY PO PAIN MEDICATION ACCOMPANIED BY ANTI-EMETICS. PT TITRATED OFF OF 02 VIA NC, AND SATURATIONS ARE STABLE ON RA AT THIS TIME. PT DOES HAVE PRODUCTIVE COUGH AND REPORTS GREEN SPUTUM, THIS RN OFFERED COUGH MEDICATIONS SEVERAL TIMES, HOWEVER PT CLAIMED "THEY AREN'T WORKING." THIS RN EDUCATED PT ON THE NEED FOR COUGH MEDICATIONS TO HELP WITH PAIN/SORENESS ASSOCIATED WITH COUGHING. COUGH MEDICATIONS GIVEN UPON REQUEST AND PER MAR. PT IS UP AD FEDE IN ROOM, AND HAD A SHOWER. PT IS RESTING COMFORTABLY IN ROOM, FAMILY AT BEDSIDE, WILL CONTINUE TO MONITOR THROUGHOUT SHIFT.
[2018-10-01 20:00] VITALS: BP 122/75
[2018-10-02 04:10] VITALS: BP 139/79
--- NOTE | 2018-10-02 05:05 | NUR ---
Pt. stated she slept intermittently during the night. Requested nausea med prior to requesting pain med and given x 1 this shift with some relief. Tolerating room air well with O2 sat in the upper 90's. Up ad eladia in room and calls appropriately if she needs assistance. Making progress towards care plan goals.
[2018-10-02 05:27] LABS: HEMOGLOBIN 9.3 gm/dL (12.0-15.0); MCH 22.8 pg (26.0-34.0); MCHC 31.1 g/dL (28.0-37.0); MCV 73.3 fL (80.0-100.0); RBC 4.09 mil/uL (4.20-5.00); RDW 17.5 % (10.5-14.5); WBC 11.6 thou/uL (4.0-11.0)
[2018-10-02 05:52] LABS: CALCIUM 8.9 mg/dL (8.5-10.1); MAGNESIUM 1.9 mg/dL (1.8-2.4)
[2018-10-02 07:49] VITALS: BP 132/72
[2018-10-02 11:39] VITALS: BP 155/95
[2018-10-02 17:22] VITALS: BP 124/80
--- NOTE | 2018-10-02 18:15 | NUR ---
PATIENT HAS RESTED IN BED ALL DAY. SHE DOES NOT SEEM TO BE IN PAIN AT THIS TIME. DID GIVE HER PERCOCET EARLIER FOR A HEADACHE AND GENERALIZED BODY PAIN. SHE IS CONTENTED WITH HER CHOICE OF MEDICATIONS AT THIS TIME. ENCOURAGED RESIDENT TO AMBULATE ABOUT FACILITY. BUT SHE STATES SHE IS TOO WEAK AND TIRED TO DO THAT. CONT ON ROOM AND SATS ARE WITHIN RANGE. WILL CONT WITH PLAN OF CARE.
[2018-10-02 19:20] VITALS: BP 136/84
--- NOTE | 2018-10-03 03:13 | NUR ---
pt alert and orineted x 4, presents with a plesant affect,has been asleep since 2129 after administration of pain meds and restoril,has not needed any oxygen since the begining of the shift,independent with adls,verbalizes generalized body pains. last bm 4 days ago. meds compliant.
[2018-10-03 04:13] VITALS: BP 138/80
[2018-10-03 07:39] VITALS: BP 121/72
[2018-10-03] MEDS ORDERED: PERCOCET 10-321 EACH PO (08:20)
[2018-10-03] MEDS ORDERED: PHENERGAN 25 MG25 M1 PO (08:20)
[2018-10-03 11:25] VITALS: BP 123/67
[2018-10-03] MEDS ORDERED: PREDNISONE 10 M10 MG PO (16:15)
[2018-10-03 16:23] VITALS: BP 123/67
--- NOTE | 2018-10-03 16:43 | NUR ---
PATIENT WILL BE DISCHARGED AT THIS TIME. HER PAIN IS WELL CONTROLLED AT THIS TIME. DISCUSSED HER CARE AND EDUCATED PATIENT ABOUT DISEASE PROCESS. SHE IS WORRIED ABOUT HER COUGING. EDUCATED ON THE FACT THAT SHE DOES NOT HAVE AN INFECTION EVIDENCE BY NORMAL TEMP AND WBC. SHE DID HOWEVER STATE THAT SHE FELT MUCH BETTER TODAY. SHE HAS ONLY HAD PAIN MEDICATION TWICE AND PAIN HAS BEEN CONTROLLED MUCH BETTER. WAS AT BEDSIDE.
[2018-10-04 03:07] LABS: ADENOVIRUS Negative (Negative); INFLUENZA A Positive (Negative); INFLUENZA B Negative (Negative); METAPNEUMOVIRUS Negative (Negative); PARAINFLUENZA 1 Negative (Negative); PARAINFLUENZA 2 Negative (Negative); PARAINFLUENZA 3 Negative (Negative); RHINOVIRUS Negative (Negative); RSV A Negative (Negative); RSV B Negative (Negative)
--- NOTE | 2018-10-04 03:16 | NUR ---
RECIEVED LAB COMFIRMATION THAT ABOVE PT CAME BACK POSITIVE FOR INFLUENZA A. FOLLOWED PROTOCOL AND INFORMED KAREN LEDESMA ABOUT RESULTS.
== END 2018-10-03 17:09 | disposition home or self-care (01) | DRG 189 ==
LOC: ER 07:57 → 3W 09:16 → EROBS 09:16 → 3W 10:06 → ENTRNSPT 10-03 16:59 → 3W 10-03 17:09
PROVIDERS: Internal Medicine Pulmonary Disease; Pediatrics; Student in an Organized Health Care Education/Training Program; ADMIT Internal Medicine
PROC: 5A09357 Assistance with Respiratory Ventilation, Less than 24 Consecutive Hours, Continuous Positive Airway Pressure (ICD-10-PCS; principal; 2018-09-28)
PROC: 5A09357 Assistance with Respiratory Ventilation, Less than 24 Consecutive Hours, Continuous Positive Airway Pressure (ICD-10-PCS; 2018-09-30)
DX: J96.00 Acute respiratory failure, unspecified whether with hypoxia or hypercapnia (principal); J45.901 Unspecified asthma with (acute) exacerbation; Z68.41 Body mass index [BMI] 40.0-44.9, adult; I10 Essential (primary) hypertension; K21.9 Gastro-esophageal reflux disease without esophagitis; G43.909 Migraine, unspecified, not intractable, without status migrainosus; M19.90 Unspecified osteoarthritis, unspecified site; J44.9 Chronic obstructive pulmonary disease, unspecified; F41.9 Anxiety disorder, unspecified; M32.9 Systemic lupus erythematosus, unspecified; Z77.22 Contact with and (suspected) exposure to environmental tobacco smoke (acute) (chronic); G25.81 Restless legs syndrome; G89.29 Other chronic pain; E66.01 Morbid (severe) obesity due to excess calories; Z88.8 Allergy status to other drugs, medicaments and biological substances; Z79.82 Long term (current) use of aspirin; Z79.899 Other long term (current) drug therapy
CPT/HCPCS: 10879

== ENCOUNTER 2018-11-23 14:48 | Emergency (ER) | payer OTHER ==
[~2018-11-23] VITALS: Ht 152.4 cm; Wt 99.8 kg
[~2018-11-23 14:48] MED LIST changes: +AJOVY225 MG/1.5 SUBQ; +ARNUITY ELLIP200 MCG INH; +DELSYM30 MG/5 M1 PO; +ELIQUIS5 MG PO; +FASENRA30 MG/1 ML SUBQ
[2018-11-23] MEDS ORDERED: DOXYCYCLINE 10100 MG PO (18:09)
[2018-11-23] MEDS ORDERED: VENTOLIN HFA 1818 GM INH (18:09)
[2018-11-23] MEDS ORDERED: AMOXICILLIN875 MG PO (18:09)
[2018-11-23 18:18] VITALS: BP 146/74
== END 2018-11-23 18:20 | disposition home or self-care (01) ==
LOC: ER 14:48
DX: J06.9 Acute upper respiratory infection, unspecified (principal); I10 Essential (primary) hypertension; K21.9 Gastro-esophageal reflux disease without esophagitis; M19.90 Unspecified osteoarthritis, unspecified site; G43.909 Migraine, unspecified, not intractable, without status migrainosus; J44.9 Chronic obstructive pulmonary disease, unspecified; F41.9 Anxiety disorder, unspecified; M32.9 Systemic lupus erythematosus, unspecified; Z91.018 Allergy to other foods; Z88.8 Allergy status to other drugs, medicaments and biological substances; Z87.01 Personal history of pneumonia (recurrent)

== ENCOUNTER 2018-12-13 01:27 | Emergency (ER) | payer OTHER ==
[~2018-12-13] VITALS: Ht 172.7 cm; Wt 99.8 kg
[~2018-12-13 01:27] MED LIST changes: +AMOXICILLIN875 MG PO
[2018-12-13 02:30] LABS: ABSOLUTE NEUTROPHILS 8.2 thou/uL (1.4-8.2); BASOPHILS 0.1 % (0.0-2.0); HEMATOCRIT 30.8 % (37.0-47.0); HEMOGLOBIN 9.8 gm/dL (12.0-15.0); LYMPHOCYTES 15.4 % (24.0-44.0); MCH 22.7 pg (26.0-34.0); MCHC 31.7 g/dL (28.0-37.0); MCV 71.7 fL (80.0-100.0); MONOCYTES 5.8 % (1.0-8.0); PLATELET COUNT 344 thou/uL (150-400); POLYS 78.7 % (36.0-66.0); RBC 4.29 mil/uL (4.20-5.00); RDW 20.2 % (10.5-14.5); WBC 10.4 thou/uL (4.0-11.0)
[2018-12-13 02:38] LABS: ANION GAP 8 mmol/L (7-16); BUN 10 mg/dL (7-18); CALCIUM 9.1 mg/dL (8.5-10.1); CHLORIDE 102 mmol/L (98-107); CO2 24 mmol/L (21-32); CREATININE 0.9 mg/dL (0.6-1.0); GLUCOSE 137 mg/dL (74-106); SODIUM 134 mmol/L (136-145)
[2018-12-13 02:46] LABS: TROPONIN-I <0.06 ng/mL (<0.06)
[2018-12-13 04:46] VITALS: BP 141/80
[2018-12-13 04:59] LABS: ANISOCYTOSIS 2+; HYPOCHROMASIA 2+; MICROCYTES 1+; POLYCHROMASIA 1+
[2018-12-13 05:00] LABS: LARGE PLATELETS OCCASIONAL; OVALOCYTES 1+
--- NOTE | 2018-12-14 13:28 | EKG ---
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 : 1975 Requested By: Jason Groves Order Number: [id number] MD: Glenn Talley Measurements Intervals [place] Rate: 92 P: 51 [place]: 117 QRS: 51 QRSD: 79 T: 38 QT: 348 QTc: 431 Interpretive Statements Sinus rhythm Borderline short [place] interval Abnormal R-wave progression, early transition Compared to ECG 09/28/2018 09:00:39 Sinus tachycardia no longer present Electronically Signed On 12-14-2018 13:28:36 CDT by Glenn Talley [email or web address] ��������������������������������������������� <ELECTRONICALLY SIGNED> ���������������������������������������� By: Glenn Talley MD, [facility] ��������������������������������������������� 12/14/18 1328 013 013 Glenn Talley MD, FAC /EPI
--- NOTE | 2018-12-14 13:29 | EKG ---
[place] [address] [facility] [place] [address] ELECTROCARDIOGRAM REPORT Name: KIMBERLY COLON Room #: DEP LYNNETTE Lantigua#: [id number] ������������������ Admission: 12/13/18 ������������������ Attend Phys: Discharge: 12/13/18 ������������������ Date of : 75 Report #: [id number] ����������������������������������������������������������������� [id number] THIS REPORT FOR: //name// [facility] ED Test Date: 2018-12-13 Test Time: 03:50:53 Pat Name: KIMBERLY COLON Department: Room: Gender: F Archivist: LOURDES : 1975 Requested By: Jason Groves Order Number: [id number] MD: Glenn Talley Measurements Intervals [place] Rate: 90 P: 50 [place]: 130 QRS: 32 QRSD: 84 T: 27 QT: 374 QTc: 458 Interpretive Statements Sinus rhythm Abnormal R-wave progression, early transition Compared to ECG 09/28/2018 09:00:39 No significant change was found Electronically Signed On 12-14-2018 13:29:25 CDT by Gelnn Talley [email or web address] ��������������������������������������������� <ELECTRONICALLY SIGNED> ���������������������������������������� By: Glenn Talley MD, [facility] ��������������������������������������������� 12/14/18 1329 0350 0350 Glenn Talley MD, FACC /EPI
== END 2018-12-13 04:57 | disposition home or self-care (01) ==
LOC: ER 01:27
PROVIDERS: Emergency Medicine
DX: R07.89 Other chest pain (principal); I10 Essential (primary) hypertension; K21.9 Gastro-esophageal reflux disease without esophagitis; M19.90 Unspecified osteoarthritis, unspecified site; J44.9 Chronic obstructive pulmonary disease, unspecified; F41.9 Anxiety disorder, unspecified; Z88.8 Allergy status to other drugs, medicaments and biological substances

== ENCOUNTER 2019-03-01 10:40 | Emergency (ER) | payer OTHER ==
[~2019-03-01] VITALS: Ht 152.4 cm; Wt 105.7 kg
[2019-03-01] MEDS ORDERED: METFORMIN HCL500 MG PO (11:07)
[2019-03-01 11:20] LABS: URINE BILIRUBIN NEGATIVE (Negative); URINE BLOOD 1+ (Negative); URINE CLARITY CLEAR; URINE COLOR YELLOW; URINE GLUCOSE-RANDOM* NEGATIVE (Negative); URINE KETONES NEGATIVE (Negative); URINE LEUKOCYTES-REFLEX NEGATIVE (Negative); URINE NITRITE-REFLEX NEGATIVE (Negative); URINE PROTEIN (DIPSTICK) NEGATIVE (Negative); URINE SPECIFIC GRAVITY 1.015 (1.005-1.035)
[2019-03-01 11:23] LABS: ABSOLUTE NEUTROPHILS 15.4 thou/uL (1.4-8.2); BASOPHILS 0.4 % (0.0-2.0); EOSINOPHILS 0.2 % (0.0-3.0); HEMATOCRIT 30.2 % (37.0-47.0); HEMOGLOBIN 9.6 gm/dL (12.0-15.0); LYMPHOCYTES 6.7 % (24.0-44.0); MCH 22.4 pg (26.0-34.0); MCHC 31.9 g/dL (28.0-37.0); MCV 70.2 fL (80.0-100.0); MONOCYTES 4.8 % (1.0-8.0); PLATELET COUNT 364 thou/uL (150-400); POLYS 87.9 % (36.0-66.0); RDW 18.2 % (10.5-14.5); WBC 17.5 thou/uL (4.0-11.0)
[2019-03-01 11:27] LABS: BACTERIA-REFLEX 1-9 Few /HPF (None Seen); CASTS None Seen /LPF (None Seen); CRYSTALS None Seen /LPF (None Seen); SQUAMOUS 0-3 Few /LPF (0-3); URINE RBC 3-10 Few /HPF (0-2); URINE WBC-REFLEX None Seen /HPF (0-5)
[2019-03-01 11:30] LABS: CALCIUM 9.2 mg/dL (8.5-10.1); CREATININE 0.9 mg/dL (0.6-1.0); POTASSIUM 3.9 mmol/L (3.5-5.1)
[2019-03-01 11:36] LABS: TOTAL BILIRUBIN 0.5 mg/dL (<0.1-1.0); TOTAL PROTEIN 7.5 g/dL (6.4-8.2)
[2019-03-01 11:45] LABS: ANISOCYTOSIS 1+
[2019-03-01 11:46] LABS: HYPOCHROMASIA 1+; LARGE PLATELETS OCCASIONAL; MICROCYTES 1+
[2019-03-01 13:41] VITALS: BP 145/79
[2019-03-01] MEDS ORDERED: CEPACOL SORE T1 EAC7 TOP (13:54)
[2019-03-01] MEDS ORDERED: PHENERGAN 25 MG25 M1 PO (13:54)
--- NOTE | 2019-03-02 08:46 | EKG ---
[place] [address] [facility] [facility] [place] [address] ELECTROCARDIOGRAM REPORT Name: ISAIAHKIMBERLY Room #: DEP LYNNETTE Lantigua#: [id number] ������������������ Admission: 03/01/19 ������������������ Attend Phys: Discharge: 03/01/19 ������������������ Date of : 75 Report #: [id number] ����������������������������������������������������������������� [id number] THIS REPORT FOR: //name// 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: bayron : 1975 Requested By: aDvid Dyer Order Number: [id number] MD: Bradley Garcia Measurements Intervals [place] Rate: 98 P: 66 NM: 134 QRS: 59 QRSD: 77 T: 38 QT: 346 QTc: 442 Interpretive Statements Sinus rhythm Abnormal R-wave progression, early transition Compared to ECG 12/13/2018 03:50:53 No significant changes Electronically Signed On 03-02-2019 8:46:00 CDT by Bradley Garcia [email or web address] ��������������������������������������������� <ELECTRONICALLY SIGNED> ���������������������������������������� By: Bradley Garcia MD ��������������������������������������������� 03/02/19 0846 01 01 Bradley Garcia MD /ABISAI
== END 2019-03-01 13:50 | disposition home or self-care (01) ==
LOC: ER 10:40
PROVIDERS: Emergency Medicine
DX: B34.9 Viral infection, unspecified (principal); R11.2 Nausea with vomiting, unspecified; I10 Essential (primary) hypertension; J44.9 Chronic obstructive pulmonary disease, unspecified; K21.9 Gastro-esophageal reflux disease without esophagitis; M19.90 Unspecified osteoarthritis, unspecified site; J18.9 Pneumonia, unspecified organism; F41.9 Anxiety disorder, unspecified; M32.9 Systemic lupus erythematosus, unspecified; Z95.5 Presence of coronary angioplasty implant and graft; Z88.8 Allergy status to other drugs, medicaments and biological substances

== ENCOUNTER 2019-05-13 11:32 | Inpatient (IN) | payer OTHER ==
[~2019-05-13] VITALS: Ht 152.4 cm; Wt 106.9 kg
[~2019-05-13 11:32] MED LIST changes: +CEPACOL SORE T1 EAC7 TOP; +METFORMIN HCL500 MG PO
[2019-05-13 11:33] VITALS: BP 164/95
[2019-05-13 12:46] LABS: ABSOLUTE NEUTROPHILS 6.8 thou/uL (1.4-8.2); BASOPHILS 0.6 % (0.0-2.0); EOSINOPHILS 9.1 % (0.0-3.0); HEMATOCRIT 28.9 % (37.0-47.0); HEMOGLOBIN 9.3 gm/dL (12.0-15.0); LYMPHOCYTES 19.6 % (24.0-44.0); MCH 22.5 pg (26.0-34.0); MCHC 32.2 g/dL (28.0-37.0); MONOCYTES 4.1 % (1.0-8.0); PLATELET COUNT 352 thou/uL (150-400); POLYS 66.6 % (36.0-66.0); RBC 4.12 mil/uL (4.20-5.00); RDW 19.2 % (10.5-14.5); WBC 10.2 thou/uL (4.0-11.0)
[2019-05-13 12:59] LABS: ANION GAP 7 mmol/L (7-16); BUN 6 mg/dL (7-18); CALCIUM 8.9 mg/dL (8.5-10.1); CHLORIDE 105 mmol/L (98-107); CO2 25 mmol/L (21-32); CREATININE 0.9 mg/dL (0.6-1.0); GLUCOSE 97 mg/dL (74-106); POTASSIUM 3.8 mmol/L (3.5-5.1); SODIUM 137 mmol/L (136-145)
[2019-05-13 13:09] LABS: ALBUMIN 2.8 g/dL (3.4-5.0); SGOT 14 U/L (15-37); SGPT 13 U/L (30-65); TOTAL BILIRUBIN 0.2 mg/dL (<0.1-1.0); TROPONIN-I <0.06 ng/mL (<0.06)
[2019-05-13 13:20] LABS: PLATELET ESTIMATE NORMAL
[2019-05-13 13:21] LABS: LARGE PLATELETS FEW
[2019-05-13 13:22] LABS: ANISOCYTOSIS 2+; HYPOCHROMASIA 2+; MICROCYTES 2+; POIKILOCYTOSIS SLIGHT
[2019-05-13 16:23] VITALS: BP 187/95
--- NOTE | 2019-05-13 19:22 | NUR ---
44 YO FEMALE ADMITTED TO 207 FROM ED WITH ASTHMATICUS, PATIENT HAS MIDLINE L PORT, ALERT AND ORIENTED X 4, CAST ON FX RIGHT WRIST, AT BEDSIDE WILL CONTINUE TO MONITOR
[2019-05-13 20:35] VITALS: BP 147/75
[2019-05-14 02:13] LABS: BE(vivo) -2.4 mmol/L (-2 to +3); HCO3 21.7 mmol/L (22.0-26.0); PCO2 34.9 mmHg (35.0-45.0); pH 7.411 (7.360-7.450); sO2 87.4 % (92.0-98.0)
[2019-05-14 02:15] LABS: PO2 51.8 mmHg (80.0-100.0)
[2019-05-14 04:45] VITALS: BP 156/64
--- NOTE | 2019-05-14 05:54 | NUR ---
PATIETNS CARES WERE ASSUMED AT SHIFT CHANGE.PATIENT WAS ASSESSED AND MEDS WERE PASSED. HOURLY ROUNDING WAS DONE. THE BED IS IN A LOW AND LOCKED POSITION.
[2019-05-14 07:55] VITALS: BP 148/74
[2019-05-14 11:35] VITALS: BP 144/85
[2019-05-14 15:30] VITALS: BP 133/70
--- NOTE | 2019-05-14 18:57 | NUR ---
ASSUMED CARE PT AT SHIFT CHANGE. ASSESSMENTS CHARTED. MEDS GIVEN PER NOV. PT ALERT AND ORIENTED, VSS, PT C/O SOB THIS AM, RT CALLED FOR BREATHING TREATMENT. C/O PAIN -MANAGED WITH PAIN MEDS PER NOV. PAIN AND SOB RELIEVED. PT UP TO SHOWER THIS SHIFT, TOLERATED WELL. O2 SATS WNL ON 3L O2. PT DENIES CONCERNS AT THIS TIME. WILL CONT TO MONITOR AND FOLLOW POC.
[2019-05-14 19:30] VITALS: BP 143/80
[2019-05-15 02:57] VITALS: BP 124/68
--- NOTE | 2019-05-15 05:06 | NUR ---
ASSUMED PT CARE AT 1900. PT A/OX4, VITALS SIGNS STABLE, ASSESSMENT CHARTED. NO COMPLAINTS OF PAIN. PT COMPLAINED OF AIR HUNGER AFTER WALKING AROUND UNIT. MORPHINE GIVEN WHICH SEEMED TO HELP. AT ABOUT MIDNIGHT, PT HAD A SOB/ASTHMATIC SPELL. RT CALLED, BREATHING TREATMENT ADMINISTERED, COUGH MEDICINE GIVEN WHICH SEEMED TO HELP. VITALS SIGNS REMAINED STABLE. PT MAINTAINED ON 4L O2 FOR THE REST OF NIGHT. NO FURTHER COMPLAINTS OF SOB OR AIR HUNGER FOR THE REST OF SHIFT. PROGRESSING SLOWLY TOWARDS PLAN OF CARE. WILL CONTINUE TO CLOSELY MONITOR.
[2019-05-15 07:40] VITALS: BP 150/92
--- NOTE | 2019-05-15 11:13 | HC ---
[facility] [place] [address] CONSULTATION Name: KIMBERLY COLON Room #: 207-P ADM IN M.R.#: [id number] Admission: 05/13/19 Attend Phys: Hina Bach MD Discharge: Date of : 75 Report #: [id number] THIS REPORT FOR: //name// CC: [facility] physician/PCP Hina Bach REFERRING PHYSICIAN: Dr. Bach. REASON FOR REFERRAL: Asthma exacerbation. HISTORY OF PRESENT ILLNESS: The patient is a 44-year-old -Guyanese female who presents to the ED with chronic cough and progressive dyspnea. A pulmonary consultation was requested. The patient is known to the Pulmonary Service, as she was last hospitalized in 08/2018. She has known history of severe asthma with elevated IgE and eosinophil count. She has been followed by second worker. She has been receiving biologic therapy for her asthma. This has resulted in good asthma control. She is also followed at [facility] for lupus. She has been on Plaquenil in the past. She had been doing fairly well until about the past month when she has had trouble with increasing cough. The cough has been worsening, resulting in emesis. Cough remains nonproductive. With worsening symptoms, she presented to the ED. Otherwise, denies any recent febrile illness, sore throat, night sweats or chills. PAST MEDICAL HISTORY: Notable for pulmonary embolus diagnosed in 06/2018, undergoing anticoagulation. This was discontinued in 10/2018, history of SVT status post ablation in 01/2018, severe asthma with history of eosinophilia, elevated IgE, had been on Fasenra, history of systemic lupus erythematosus, followed at [facility], migraine headache from hypertension, gastroesophageal reflux disease. PAST SURGICAL HISTORY: As mentioned above. Also, has a Port-A-Cath placement. ALLERGIES: REGLAN, REACTION NOT SPECIFIED; COMPAZINE, REACTION NOT SPECIFIED. HOME MEDICATIONS: Reviewed. This include albuterol MDI, Protonix 40 mg p.o. b.i.d., Toprol-XL 25 mg once a day, aspirin 81 mg once a day, Mucinex 600 mg p.o. b.i.d. Fasenra 30 mg subQ monthly, Arnuity Ellipta 200 mcg 1 puff once a day, Spiriva 1 capsule once a day, metformin 500 mg p.o. b.i.d. FAMILY HISTORY: Noncontributory. [facility] [address] [place] [address] CONSULTATION Name: KIMBERLY COLON Room #: 207-P [facility] IN M.R.#: [id number] Admission: 05/13/19 Attend Phys: Hina Bach MD Discharge: Date of : 75 Report #: [id number] SOCIAL HISTORY: She denies any tobacco or alcohol use. REVIEW OF SYSTEMS: As mentioned above, otherwise 10-point system review negative. PHYSICAL EXAMINATION: GENERAL: She is awake, alert, in no distress. VITAL SIGNS: Temperature is 98.7 degrees, was 98.4 degrees Fahrenheit; pulse is 100, respiratory rate is 18, blood pressure 144/85 mmHg, saturation is 96%. HEENT: Normocephalic, atraumatic. NECK: Supple, without lymphadenopathy or thyromegaly. CHEST: Breath sounds are fair with mild expiratory wheezes. CARDIOVASCULAR: Normal S1, S2. No murmurs or gallop. There is no JVD, no carotid bruit. Pulses are 2+/4+ bilaterally. ABDOMEN: Soft, nontender, no organomegaly or masses felt. GENITOURINARY: Deferred. RECTAL: Deferred. EXTREMITIES: There is no edema, cyanosis or clubbing. LABORATORY DATA: Chest x-ray is clear. CT chest angiogram was negative for pulmonary embolus. No infiltrates or effusion seen. Electrolytes are normal. Liver enzymes are normal. WBC 10,200, hemoglobin is 9.3. Eosinophil count is 9%. Arterial blood gas revealed pH 7.41, pCO2 of 34, pO2 of 51 on 2 liters of O2. IMPRESSION: 1. Acute hypoxic respiratory failure in this 44-year-old -Guyanese female secondary to exacerbation of severe chronic obstructive pulmonary disease. Pulmonary embolus has been ruled out. 2. 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 3. History of systemic lupus erythematosus. 4. Morbid obesity. RECOMMENDATION: Agree with current treatment, bronchodilators, corticosteroids. DVT and GI prophylaxis recommended. She will benefit from ongoing close followup at given her severe allergies and asthma. Thank you for this consultation. <ELECTRONICALLY SIGNED> By: Adarsh Mckeon MD 05/15/19 1113 [id number] Adarsh Mckeon MD /nt
[2019-05-15 11:35] VITALS: BP 158/95; BP 158/951
--- NOTE | 2019-05-15 13:00 | NUR ---
I WAS CALLED TO TALK WITH THE PATIENT REGARDING PAIN MEDICATION AND DR BECKHAM ORDERS. PATIENT STATES THAT SHE IS IN EXTREME PAIN AND THAT ALL SHE NEEDS IS THE MORPHINE THE THE DOCTOR DISCONTINUED. PATIENT STATES THAT SHE IS COUGHING SO HARD THAT SHE IS BURSTING BLOOD VESSELS IN HER FACE, SHE IS CRYING, AND STATING THAT SHE DOESNT USUALLY TAKE PAIN MEDICATION, BUT SHE NEEDS THE MORPHINE. DISCUSSED WITH PATIENT WHAT PAIN MEDS WERE ORDERED AND WHY. PATIENT DOES NOT LIKE ANYTHING I AM SAYING. PATIENT REFUSED TO TAKE THE TRAMADOL, STATING THAT SHE DOESN'T LIKE IT. SHE DID TAKE SOME TYLENOL EARLIER BUT IT WAS NOT WORKING. PATIENT STATES THAT SHE WILL TAKE IBUPROPHEN BUT SHE KNOWS IT WILL NOT WORK. I TOLD HER THAT WE WERE TRYING TO GET HER BETTER SO SHE COULD GO HOME AND THAT OPIOIDS WERE NOT THE TREATMENT OF CHOICE FOR HER INFLAMMATORY PAIN PER DR. JEAN. SHE ABSOLUTELY DISAGREES. CALL PLACED TO DR. JEAN AND IBUPROPHEN GIVEN TO PATIENT. [phone]- TALKED TO DR. JEAN. OBTAINED ORDERS FOR ALTERNATE PAIN MEDICATIONS TO TREAT HER CONDITION AND HELP HER HAVE LESS PAIN. WILL DISCUSS WITH PATIENT.
--- NOTE | 2019-05-15 14:04 | NUR ---
per voice message from [facility] dept, if need any assistance with dcp call [phone], ref # [id number]
[2019-05-15 15:30] VITALS: BP 156/94
--- NOTE | 2019-05-15 16:30 | NUR ---
ASSESSMENT CHARTED. PT ALERT AND ORIENTED VERY TEARFUL. PT REPORT HAVING SOME CHEST PAIN. CHEST PAIN PROTOCAL FOLLOWED. PRN MORPHINE WITH NO RELIEF. NOTIFIED. ORDERS GIVEN FOR ULTRAM. PT REFUSED ULTRAM WHEN OFFERED STATING THAT SHE DOES NOT LIKE THE MEDICINE AND WOULD PREFER MORPHINE INSTEAD. DR. JEAN NOTIFIED. PT REQUESTED TO SPEAK TO THE NURSE LPC REGARDING HER PAIN MEDS. NURSE LPC NOTIFIED. PRN TORADOL AND MUSCLE RELAXER GIVEN. SCHEDULED RT TREATMENT GIVEN ORDERED. WILL CONTINUE TO MONITOR.
--- NOTE | 2019-05-15 17:51 | EKG ---
[address] [address] ELECTROCARDIOGRAM REPORT Name: KIMBERLY COLON Room #: 207-P ADM IN M.R.#: [id number] Admission: 05/13/19 Attend Phys: Hina Bach MD Discharge: Date of : 75 Report #: [id number] THIS REPORT FOR: //name// [facility] ED Test Date: 2019-05-13 Test Time: 12:35:35 Pat Name: KIMBERLY COLON Department: Room: 207 Gender: F Registered Medical Assistant: Martín : 1975 Requested By: Guadalupe Moore Order Number: [id number] MD: Glenn Talley Measurements Intervals [place] Rate: 96 P: 53 PA: 124 QRS: 45 QRSD: 89 T: 33 QT: 367 QTc: 464 Interpretive Statements Sinus rhythm Abnormal R-wave progression, early transition Compared to ECG 03/01/2019 12:02:09 No significant changes Electronically Signed On 05-15-2019 17:51:21 CDT by Glenn Talley [email or web address] <ELECTRONICALLY SIGNED> By: Glenn Talley MD, [facility] 05/15/19 1751 1235 1235 Glenn Talley MD, FACC /EPI
--- NOTE | 2019-05-15 18:15 | EKG ---
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: YONG : 1975 Requested By: Heath Schulz Order Number: [id number] MD: Glenn Talley Measurements Intervals [place] Rate: 74 P: 61 IN: 131 QRS: 43 QRSD: 96 T: 42 QT: 376 QTc: 418 Interpretive Statements Sinus rhythm Abnormal R-wave progression, early transition Compared to ECG 03/01/2019 12:02:09 No significant changes Electronically Signed On 05-15-2019 18:15:37 CDT by Glenn Talley [email or web address] <ELECTRONICALLY SIGNED> By: Glenn Talley MD, [facility] 05/15/19 1815 D: [id number] 7 Glenn Talley MD, FACC /EPI
[2019-05-15 20:18] VITALS: BP 144/80
[2019-05-16 04:41] VITALS: BP 145/71
--- NOTE | 2019-05-16 05:20 | NUR ---
ASSUME CARE 1900. PT/VITALS STABLE. COMPLAINS OF CONSISTENT PAIN IN CHEST/NON CARDIAC. UP AD FEDE. ADEQUATE REST NOTED THROUGH THE NIGHT. ASSESSMETN CHARTED. PROGRESASING WELL WITH POC. PLAN IS TO CONTINUE WITH BREATHING TREATMENTS AND MONITORING RESPIRATORY FUNCTION. WILL CONTINUE TO MONITOR AND FOLLOW WITH POC
[2019-05-16 06:58] LABS: HEMOGLOBIN 8.6 gm/dL (12.0-15.0); MCH 22.6 pg (26.0-34.0); MCHC 31.8 g/dL (28.0-37.0); MCV 71.2 fL (80.0-100.0); RBC 3.79 mil/uL (4.20-5.00); RDW 19.8 % (10.5-14.5); WBC 10.7 thou/uL (4.0-11.0)
[2019-05-16 07:10] LABS: ABSOLUTE RETIC COUNT 0.062 10^6/uL; OBSERVED RETIC COUNT 1.65 % (0.6-2.6)
[2019-05-16 07:17] LABS: % SATURATION 6 % (20-39); ALBUMIN 2.6 g/dL (3.4-5.0); CALCIUM 8.6 mg/dL (8.5-10.1); IRON 16 ug/dL (50-170); MAGNESIUM 2.4 mg/dL (1.8-2.4); POTASSIUM 4.5 mmol/L (3.5-5.1); TIBC 268 ug/dL (250-450); TOTAL BILIRUBIN 0.1 mg/dL (<0.1-1.0); TOTAL PROTEIN 6.6 g/dL (6.4-8.2)
[2019-05-16 07:55] VITALS: BP 158/101
--- NOTE | 2019-05-16 10:34 | EKG ---
[address] [employer] [address] ELECTROCARDIOGRAM REPORT Name: KIMBERLY COLON Room #: 207-P ADM IN M.R.#: [id number] Admission: 05/13/19 Attend Phys: Hina Bach MD Discharge: Date of : 75 Report #: [id number] THIS REPORT FOR: //name// [facility] Test Date: 2019-05-15 Test Time: 11:43:16 Pat Name: KIMBERLY COLON Department: Room: 207 P Gender: F Game Trapper: Tashia MCNAMARA : 1975 Requested By: Adarsh Mckeon Order Number: [id number] MD: Glenn Talley Measurements Intervals [place] Rate: 77 P: 57 [place]: 130 QRS: 47 QRSD: 94 T: 44 QT: 378 QTc: 428 Interpretive Statements Sinus rhythm Abnormal R-wave progression, early transition Compared to ECG 03/01/2019 12:02:09 No significant changes Electronically Signed On 05-16-2019 10:34:28 CDT by Glenn Talley [email or web address] <ELECTRONICALLY SIGNED> By: Glenn Talley MD, [facility] 05/16/19 1034 1143 1143 Glenn Talley MD, [facility] /EPI
[2019-05-16 11:55] VITALS: BP 161/91
[2019-05-16 15:55] VITALS: BP 159/99
--- NOTE | 2019-05-16 16:53 | NUR ---
ASSUMED CARE AT 0700, SHIFT ASSESSMENT DONE, MEDS GIVEN, VSS. REPORTED PAIN, PRN PAIN MEDS GIVEN. TOOK A SHOWER TODAY. OFF OF TELEMETRY NOW. REPORT GIVEN TO
[2019-05-16 20:00] VITALS: BP 161/54
--- NOTE | 2019-05-17 03:05 | NUR ---
ASSESSMENT DOCUMENTED.PT BEEN RESTING IN NO ACUTE DISTRESS.PT SLEEPING MOST OF THE TIME,O2 AT 2LITERS PNC,SATS ADEQUATE.NO RESP DISTRESS REPORTED.PT REPORTS IMPROVED PROGRESS MEDICALLY.NO C/O PAIN REPORTED.VSS. AT THE BEDSIDE.WILL CONT TO MONITOR PER POC.
[2019-05-17 04:58] VITALS: BP 178/100
[2019-05-17 08:00] VITALS: BP 161/86
[2019-05-17 12:00] VITALS: BP 148/91
--- NOTE | 2019-05-17 15:29 | NUR ---
PATIENT CARE ASSUMED, ASSESSMENT CHARTED, VSS, ALERT AND ORIENTED X 4, COMPLAINTS OF CHEST PAIN, FENTYNL PATCH APPLIED TO CHEST, REPORTS PAIN HAS DECREASED. WILL CONTINUE TO MONITOR.
[2019-05-17 16:00] VITALS: BP 150/84
[2019-05-17 19:45] VITALS: BP 157/92
--- NOTE | 2019-05-18 04:54 | NUR ---
ASSUME CARE 1900. DENIES ANY PAIN AT THIS TIME. PT HAS A FENTANYL PATCH ON. UP AD FEDE. ADEQUATE REST NOTED. ASSESSMETN CHARTED. PROGRESSING WELL WITH POC. SATS OK ON ROOM AIR. MINIMAL TO NO COUNGHING NOTED. NO ASTHMATIC EPISODE NOTED. PLAN IS POSSIBLE DISCHARGE HME WITHIN 1-2 DAYS. WILL CONTINUE TO MONITOR AND FOLLOW WITH POC
[2019-05-18 05:44] VITALS: BP 162/88
[2019-05-18 07:45] VITALS: BP 193/98
[2019-05-18] MEDS ORDERED: GUAIFEN-CODEINE10 ML PO (08:23)
[2019-05-18] MEDS ORDERED: AUGMENTIN 875-1 EACH PO (08:24)
[2019-05-18] MEDS ORDERED: PREDNISONE10 MG PO (08:25)
[2019-05-18 09:37] VITALS: BP 183/98
--- NOTE | 2019-05-18 10:10 | NUR ---
ASSUMED PT CARE AT APPROXIMATELY 0700. PT A&O X4. FALL PRECAUTIONS IN PLACE. ASSESSMENT CHARTED. VITAL SIGNS STABLE. BLOOD SUGAR STABLE. PT COMPLAINED OF 6/10 PAIN IN HER CHEST- NON CARDIAC RELATED. PT RECIEVED PRN ANALGESIC. PT STATED HER PAIN DECREASED AFTER RECIEVING THE ANALGESIC. PT RECIEVED DISCHARGE INSTRUCTIONS AND EDUCATION. PT STATED UNDERSTANDING ABOUT DISCHARGE INSTRUCTIONS AND EDUCATION ABOUT FOLLOW UPS AND NEW MEDICATIONS. PT STATED SHE DID NOT HAVE FURTHER QUESTIONS. PT DISCARGING HOME ACCOMPANIED WITH . PT'S PORT ACCESS WAS DC AND PACKED WITH HEPARIN. PT HAS A STEADY WALK AND IS INDEPENDENT. PT WILL BE DISCHARGED MOMENTARILY WITH HOSPITAL STAFF ESCORTING PT OUT VIA WHEELCHAIR.
== END 2019-05-18 10:34 | disposition home or self-care (01) | DRG 189 ==
LOC: ER 11:32 → EROBS 15:07 → 2N 15:07
PROVIDERS: Internal Medicine Pulmonary Disease; Nurse Practitioner Family; Physician Assistant; ADMIT Internal Medicine
DX: J96.01 Acute respiratory failure with hypoxia (principal); J45.901 Unspecified asthma with (acute) exacerbation; J44.1 Chronic obstructive pulmonary disease with (acute) exacerbation; Z68.42 Body mass index [BMI] 45.0-49.9, adult; M32.9 Systemic lupus erythematosus, unspecified; I10 Essential (primary) hypertension; K21.9 Gastro-esophageal reflux disease without esophagitis; G43.909 Migraine, unspecified, not intractable, without status migrainosus; M19.90 Unspecified osteoarthritis, unspecified site; F41.9 Anxiety disorder, unspecified; E66.01 Morbid (severe) obesity due to excess calories; D72.1 Eosinophilia; F80.82 Social pragmatic communication disorder; D50.9 Iron deficiency anemia, unspecified; R00.2 Palpitations; R07.9 Chest pain, unspecified; Z86.711 Personal history of pulmonary embolism; Z87.01 Personal history of pneumonia (recurrent); Z79.899 Other long term (current) drug therapy; Z79.82 Long term (current) use of aspirin; Z88.8 Allergy status to other drugs, medicaments and biological substances; Z79.84 Long term (current) use of oral hypoglycemic drugs; Z80.8 Family history of malignant neoplasm of other organs or systems; Z87.81 Personal history of (healed) traumatic fracture; Z91.81 History of falling; Z79.01 Long term (current) use of anticoagulants; Z82.5 Family history of asthma and other chronic lower respiratory diseases; Z82.0 Family history of epilepsy and other diseases of the nervous system; Z83.3 Family history of diabetes mellitus; Z82.49 Family history of ischemic heart disease and other diseases of the circulatory system
CPT/HCPCS: 10081; 10797

== ENCOUNTER 2019-10-20 19:29 | Emergency (ER) | payer OTHER ==
[~2019-10-20] VITALS: Ht 152.4 cm; Wt 90.7 kg
[~2019-10-20 19:29] MED LIST changes: +AUGMENTIN 875-1 EACH PO; +GUAIFEN-CODEINE10 ML PO; +PREDNISONE10 MG PO
[2019-10-20] MEDS ORDERED: [UNRECOGNIZED DRUG - OTHER] INH (20:39)
[2019-10-20] MEDS ORDERED: PROMETHAZINE-C473 ML PO (20:40)
[2019-10-20] MEDS ORDERED: CYCLOBENZAPRINE10 MG PO (20:42)
[2019-10-20] MEDS ORDERED: DIAZEPAM 5 MG5 M1 PO (20:42)
[2019-10-20] MEDS ORDERED: DICLOFENAC SOD100 G1 TOP (20:43)
[2019-10-20] MEDS ORDERED: SYMBICORT160 MCG/4. INH (20:43)
[2019-10-20] MEDS ORDERED: PRAMIPEXOLE0.125 MG PO (20:44)
[2019-10-20] MEDS ORDERED: ZANAFLEX4 MG PO (21:02)
[2019-10-20 21:24] VITALS: BP 134/99
== END 2019-10-20 21:27 | disposition home or self-care (01) ==
LOC: ER 19:29
DX: S16.1XXA Strain of muscle, fascia and tendon at neck level, initial encounter (principal); S00.03XA Contusion of scalp, initial encounter; M54.5 Low back pain; I10 Essential (primary) hypertension; J45.909 Unspecified asthma, uncomplicated; K21.9 Gastro-esophageal reflux disease without esophagitis; J44.9 Chronic obstructive pulmonary disease, unspecified; G43.909 Migraine, unspecified, not intractable, without status migrainosus; M19.90 Unspecified osteoarthritis, unspecified site; F41.9 Anxiety disorder, unspecified; Z91.018 Allergy to other foods; Z88.8 Allergy status to other drugs, medicaments and biological substances; W01.198A Fall on same level from slipping, tripping and stumbling with subsequent striking against other object, initial encounter; Y93.89 Activity, other specified; Y92.89 Other specified places as the place of occurrence of the external cause; Y99.8 Other external cause status

== ENCOUNTER → 2020-12-05 | Outpatient (CLI) | payer OTHER ==
[~2020-12-05] MED LIST changes: +CYCLOBENZAPRINE10 MG PO; +DIAZEPAM 5 MG5 M1 PO; +DICLOFENAC SOD100 G1 TOP; +PRAMIPEXOLE0.125 MG PO; +PROMETHAZINE-C473 ML PO; +SYMBICORT160 MCG/4. INH; +ZANAFLEX4 MG PO; +[UNRECOGNIZED DRUG - OTHER] INH
== END ==
LOC: RAD 09:04
PROVIDERS: ATTEND Surgery
DX: R11.10 Vomiting, unspecified (principal)

== ENCOUNTER 2020-12-19 10:01 | Emergency (ER) | payer OTHER ==
[~2020-12-19] VITALS: Ht 157.5 cm; Wt 90.7 kg
[2020-12-19 10:35] LABS: EOSINOPHILS 1.1 % (0.0-3.0); HEMATOCRIT 32.9 % (37.0-47.0); LYMPHOCYTES 19.8 % (24.0-44.0); MCH 27.2 pg (26.0-34.0); MCHC 33.6 g/dL (28.0-37.0); MCV 81.1 fL (80.0-100.0); MONOCYTES 4.6 % (1.0-8.0); PLATELET COUNT 305 thou/uL (150-400); POLYS 73.5 % (36.0-66.0); RBC 4.05 mil/uL (4.20-5.00); RDW 15.7 % (10.5-14.5); WBC 9.5 thou/uL (4.0-11.0)
[2020-12-19 10:46] LABS: ANION GAP 9 mmol/L (7-16); BUN 8 mg/dL (7-18); CALCIUM 8.7 mg/dL (8.5-10.1); CHLORIDE 103 mmol/L (98-107); CO2 27 mmol/L (21-32); GLUCOSE 97 mg/dL (74-106); POTASSIUM 4.1 mmol/L (3.5-5.1); SODIUM 139 mmol/L (136-145)
[2020-12-19 10:56] LABS: LIPASE 337 U/L (73-393); SGOT 8 U/L (15-37); SGPT 12 U/L (14-59); TOTAL BILIRUBIN 0.2 mg/dL (0.2-1.0); TROPONIN-I <0.06 ng/mL (<0.06)
--- NOTE | 2020-12-19 16:17 | EKG ---
[place] [address] [facility] [employer] [place] [address] ELECTROCARDIOGRAM REPORT Name: KIMBERLY COLON Room #: REG LYNNETTE Lantigua#: [id number] Admission: 12/19/20 Attend Phys: Discharge: Date of : 75 Report #: [id number] [facility] Test Date: 2020-12-19 Test Time: 10:07:16 Pat Name: KIMBERLY COLON Department: Room: Gender: F Computer Meteorologist: MARRY : 1975 Requested By: Reggie Sanford Order Number: [id number] MD: Long Stewart Measurements Intervals [place] Rate: 80 P: 80 [place]: 139 QRS: 55 QRSD: 89 T: 42 QT: 375 QTc: 433 Interpretive Statements Sinus rhythm Abnormal R-wave progression, early transition Baseline wander in lead(s) V3,V4,V5,V6 Compared to ECG 05/15/2019 11:43:16 No significant changes Electronically Signed On 12-19-2020 16:16:47 CDT by Logn Stewart [email or web address] <ELECTRONICALLY SIGNED> By: Long Stewart MD, [facility] 12/19/20 1616 1007 1007 Long Stewart MD, FACC /EPI
[2020-12-19 16:30] VITALS: BP 116/74
== END 2020-12-19 16:31 | disposition short-term general hospital (02) ==
LOC: ER 10:01
PROVIDERS: Emergency Medicine
DX: R07.9 Chest pain, unspecified (principal); R11.10 Vomiting, unspecified; R10.13 Epigastric pain; I10 Essential (primary) hypertension; J44.9 Chronic obstructive pulmonary disease, unspecified; K21.9 Gastro-esophageal reflux disease without esophagitis; Z79.899 Other long term (current) drug therapy; Z79.82 Long term (current) use of aspirin; Z88.8 Allergy status to other drugs, medicaments and biological substances; Z91.018 Allergy to other foods; Z20.822 Contact with and (suspected) exposure to COVID-19

== ENCOUNTER 2021-01-10 15:59 | Inpatient (IN) | payer OTHER ==
[~2021-01-10] VITALS: Ht 152.4 cm; Wt 93.9 kg
[2021-01-10 16:11] VITALS: BP 136/97
[2021-01-10 18:24] LABS: HEMATOCRIT 32.8 % (37.0-47.0); HEMOGLOBIN 10.7 gm/dL (12.0-15.0); MCH 26.1 pg (26.0-34.0); MCHC 32.7 g/dL (28.0-37.0); MCV 79.9 fL (80.0-100.0); PLATELET COUNT 385 thou/uL (150-400); WBC 13.3 thou/uL (4.0-11.0)
[2021-01-10 18:40] LABS: CALCIUM 8.7 mg/dL (8.5-10.1); CREATININE 0.8 mg/dL (0.6-1.0)
[2021-01-10 18:46] LABS: ALBUMIN 2.6 g/dL (3.4-5.0); DIRECT BILIRUBIN 0.1 mg/dL (<0.1-0.2); TOTAL BILIRUBIN 0.4 mg/dL (0.2-1.0); TOTAL PROTEIN 7.2 g/dL (6.4-8.2)
[2021-01-10 18:58] LABS: ABSOLUTE NEUTROPHILS 11.4 thou/uL (1.4-8.2); TARGET CELLS FEW
[2021-01-10 21:36] VITALS: BP 136/97
[2021-01-10 21:49] VITALS: BP 172/98
[2021-01-10 22:28] VITALS: BP 161/105
--- NOTE | 2021-01-11 00:09 | NUR ---
ADMISSION ASSESSMENT COMPLETED.PT IS ALERT AND ORIENTED. PT WITH ABDOMINAL PAIN-MOSTLY EXPERIENCED SPASMS. DIULADID GIVEN WITH RELIEF. PT HAS LOTS OF ANXIETY SURROUNDING HER HEALTH AND WAS TEARFUL AT SOME POINT. SHE FEELS LIKE SHE SHOULD HAVE BEEN ON A TELE FLOOR DUE TO HER HX OF SVT. I REASSURED PATIENT AND PROVIDED A THERAPEUTIC EAR. K+REPLACEMENT INFUSING. SHE DENIES NAUSEA. ON CLR LIQUID.TACHYCARDIC . DENIES CHEST PAIN OR TIGHTNESS. SHE IS ON ROOM AIR SATTING OKAY.SHE DENIES ANY DISCOMFORT.ABDOMINAL LAP SITES X 5 LOOK OKAY. SHE HAS THE ABDOMINAL BINDER IN PLACE.BOWEL SOUNDS PRESENT-REPORTS LAST BM ON SATURDAY AND ATTRIBUTES THAT TO POOR/LITTLE INTAKE.PT HAS A LOW GRADE FEVER AT 99.3. PT APPEARS TO BE IN NO DITRESS AT THIS TIME. WILL CONTINUE WITH POC TILL EOS.FALL EDUC PROVIDED. ADVISED TO CALL.
[2021-01-11 04:48] VITALS: BP 125/72
[2021-01-11 05:25] LABS: HEMATOCRIT 27.9 % (37.0-47.0); HEMOGLOBIN 9.2 gm/dL (12.0-15.0); MCH 26.5 pg (26.0-34.0); MCHC 33.2 g/dL (28.0-37.0); MCV 79.9 fL (80.0-100.0); RBC 3.49 mil/uL (4.20-5.00); RDW 16.1 % (10.5-14.5); WBC 12.3 thou/uL (4.0-11.0)
[2021-01-11 05:39] LABS: CALCIUM 8.2 mg/dL (8.5-10.1); CREATININE 0.7 mg/dL (0.6-1.0); POTASSIUM 3.1 mmol/L (3.5-5.1)
[2021-01-11 07:00] VITALS: BP 138/78
--- NOTE | 2021-01-11 07:04 | EKG ---
[place] [address] [facility] [place] [address] ELECTROCARDIOGRAM REPORT Name: KIMBERLY COLON Room #: 448-P ADM IN M.R.#: [id number] Admission: 01/10/21 Attend Phys: Santy Morales MD Discharge: Date of : 75 Report #: [id number] [facility] ED Test Date: 2021-01-10 Test Time: 18:34:28 Pat Name: KIMBERLY COLON Department: Room: [facility] Gender: F Engine Specialist: jaclyn : 1975 Requested By: Jose Tomas Order Number: [id number] MD: Long Stewart Measurements Intervals [place] Rate: 99 P: 66 [place]: 125 QRS: 33 QRSD: 86 T: 8 QT: 378 QTc: 486 Interpretive Statements Sinus rhythm Probable left atrial enlargement Abnormal R-wave progression, early transition Borderline prolonged QT interval Compared to ECG 12/19/2020 10:07:16 No significant changes Electronically Signed On 01-11-2021 7:04:12 CDT by Long Stewart [email or web address] <ELECTRONICALLY SIGNED> By: Long Stewart MD, [facility] 01/11/21 0704 33 33 Long Stewart MD, [facility] /EPI
--- NOTE | 2021-01-11 15:18 | NUR ---
ASSESSMENT: CM REVIEWED CHART. PT WAS ADMITTED DUE TO POST OP ABDOMINAL PAIN. PT JUST RECENTLY HAD ABDOMINAL SURGERY AT [facility] ON 01/03 AND HAD LINX REMOVED AND TIF PLACEMENT. PT REPORTS THAT SHE LIVES AT HOME WITH HER IN A HOUSE. PT REPORTS ABOUT 11 STEPS WITH HANDRAILS TO ENTER. PT STATES HAVING THREE STEPS TO GET TO HER BEDROOM. PT REPORTS SHE HAS A CANE AND A WALKER AT HOME. PT STATES SHE IS CURRENTLY IN SERVICES WITH A HH AND PREFERS TO USE THEM AT DISCHARGE. CM FAXED CLINICAL INFORMATION TO [facility]. GENERAL SURGERY IS ON THE CASE AND FOLLOWING PATIENT. CM WILL CONTINUE TO FOLLOW TO ASSIST NEEDED.
[2021-01-11 15:51] VITALS: BP 156/105
--- NOTE | 2021-01-11 17:21 | NUR ---
Received awake on bed. Due medications given as prescribed. On room air. Vital signs stable. On MS, not on telemetry; no complains and signs of chest pain, crushing sensation and heaviness. On nothing per orem- pt informed and aware- mouth swabs provided. Continent of bowel and bladder, able to go to the toilet using cane. With L chest port- NS at 125cc/hr, infusing well- IV nurse informed re: this- pt port seen and examined. With 5 abdominal lap sites from surgery 1 week ago; no bleeding and no drainage noted; no dressing in place- with dermabond. Complained of pain and nausea, due PRN pain and anti emetic meds given as prescribed. With relative at bedside, update given. Dr Reilly ordered upper GI series- patient informed; pt was hesitant at first to have the procedure w/o talking to physician- read physician's notes to patient for indication of procedure- still hesistant; called Dr Reilly's answering service to inform him re: this; pt finally agreed to have upper GI studies even w/o talking to physician. Dr Reilly called back while pt is having GI series- explained to him what happened; no further orders. Pt still complaining of pain- completed 4 out of 4 doses of IV pain meds already- paged Dr Reilly's office- a/w orders; still no response from Dr Reilly; patient also wanting to know if she can resume her diet. Called Dr Reilly's answering service- still no response- Dr Morales informed re: this- IV pain meds resumed; still a/w diet orders. Patient getting upset that physicians not responding and diet still not ordered- informed her that I have been trying to reach both physicians and kept her updated; Davis manager of organizational development and transformer assembly supervisor informed re: this. Dr Morales paged again re: pt's diet- ordered clear liquids- patient updated. To continue monitoring patient.
[2021-01-11 19:00] VITALS: BP 157/96
--- NOTE | 2021-01-11 22:04 | NUR ---
Apprx 2020 pt c/o chest pain. BED MANAGER called. See BED MANAGER flowsheet.
[2021-01-11 22:59] VITALS: BP 154/102
--- NOTE | 2021-01-12 03:55 | NUR ---
PT BEEN AHAVING LOTS OF DRY HEAVING, ZOFRAN GIVEN WITH NO RELIEF. COMPAZINE X 1 GIVEN, STAYED WITH PT FOR ABOUT 10 MINS AFTER, SHE SEEMS ANXIOUS BUT NAUSEA IS RESOLVING. VITALS TAKEN PER HER REQUEST,BP ELEVATED, WILL WAIT AND RECHECK LATER, DENIES CHEST PAIN OR SOA.
[2021-01-12 05:14] LABS: HEMATOCRIT 29.9 % (37.0-47.0); HEMOGLOBIN 9.8 gm/dL (12.0-15.0); MCH 26.2 pg (26.0-34.0); MCHC 32.8 g/dL (28.0-37.0); RBC 3.74 mil/uL (4.20-5.00); WBC 8.9 thou/uL (4.0-11.0)
[2021-01-12 05:48] VITALS: BP 180/107
[2021-01-12 06:01] LABS: CALCIUM 8.6 mg/dL (8.5-10.1); CREATININE 0.7 mg/dL (0.6-1.0); POTASSIUM 3.1 mmol/L (3.5-5.1)
--- NOTE | 2021-01-12 07:07 | EKG ---
[address] [address] ELECTROCARDIOGRAM REPORT Name: KIMBERLY COLON Room #: 448-P ADM IN M.R.#: [id number] Admission: 01/10/21 Attend Phys: Terrence Ivory MD Discharge: Date of : 75 Report #: [id number] [facility] Test Date: 2021-01-11 Test Time: 20:26:18 Pat Name: KIMBERLY COLON Department: Room: 448 P Gender: F Retail Product Advisor: FSCHWALBE : 1975 Requested By: Pratima Cook Order Number: [id number] MD: Long Stewart Measurements Intervals [place] Rate: 100 P: 69 IN: 176 QRS: 26 QRSD: 85 T: 8 QT: 363 QTc: 469 Interpretive Statements Sinus tachycardia Abnormal R-wave progression, early transition Compared to ECG 01/10/2021 18:34:28 Sinus rhythm no longer present Electronically Signed On 01-12-2021 7:06:58 CDT by Long Stewart [email or web address] <ELECTRONICALLY SIGNED> By: Long Stewart MD, [facility] 01/12/21705 25 25 Long Stewart MD, FACC /EPI
[2021-01-12 07:50] VITALS: BP 157/108
--- NOTE | 2021-01-12 16:00 | NUR ---
ON-GOING ASSESSMENT: CM REVIEWED CHART AND SPOKE WITH ATTENDING. PT IS STILL COMPLAINING OF NAUSEA AND NOT STABLE FOR DISCHARGE. CM WILL CONTINUE TO FOLOW AND UPDATED [facility].
[2021-01-12 16:51] VITALS: BP 158/106
--- NOTE | 2021-01-12 19:57 | NUR ---
PT CONTINUING TO COMPLAIN OF NAUSEA AND DRY HEAVING FREQUENTLY THIS AM. SCOPLAMINE PATCH APPLIED AND SCHEDULED NAUSEA MEDICATION GIVEN ORDERED. PT REPORTS RELIEF OF NAUSEA. CONTINUES TO HAVE SOME INTERMITTANT SEVERE ABD PAIN/CRAMPING. PT REPORTS RELIEF WITH DILAUDID. PT'S AND MOM AT BEDSIDE TODAY. REPORT GIVEN TO POLE FRAMER RN.
--- NOTE | 2021-01-13 06:00 | NUR ---
PT NAUSEA WELL MANAGED WITH MED REGIMEN ON BOARD. CONTINUES ON PAIN MEDS TOO PRN. AFEBRILE. ALOT MORE COMFORTABLE THRO THE NOC. EPISODE OF ITCHING THIS AM, BENADRYL PO GIVEN X 1 WITH RELIEF.UP AD FEDE, NO COUGH, AFEBRILE.
[2021-01-13 07:14] LABS: HEMATOCRIT 26.9 % (37.0-47.0); HEMOGLOBIN 8.8 gm/dL (12.0-15.0); MCH 26.5 pg (26.0-34.0); MCHC 32.8 g/dL (28.0-37.0); MCV 80.8 fL (80.0-100.0); RBC 3.33 mil/uL (4.20-5.00); RDW 16.3 % (10.5-14.5); WBC 6.8 thou/uL (4.0-11.0)
[2021-01-13 07:40] VITALS: BP 159/87
[2021-01-13 07:48] LABS: CALCIUM 8.3 mg/dL (8.5-10.1); CREATININE 0.8 mg/dL (0.6-1.0); POTASSIUM 3.2 mmol/L (3.5-5.1)
--- NOTE | 2021-01-13 10:49 | NUR ---
Assumed care of pt at 0700. Pt a&ox4. Up with cane. Pain controlled with prn pain meds. Pt states she might be developing a yeast infection due to antibiotics. Provider notified. IVF infusing. Call light within reach. Will continue to monitor.
[2021-01-13 12:03] VITALS: BP 159/87
[2021-01-13] MEDS ORDERED: PHENERGAN 25 MG25 M1 PO (12:31)
[2021-01-13] MEDS ORDERED: AMOX TR-K400 MG/5 M PER TUBE (12:32)
[2021-01-13] MEDS ORDERED: ZOFRAN ODT4 MG PO (12:34)
[2021-01-13 12:41] VITALS: BP 165/106
[2021-01-13 12:47] VITALS: BP 159/87
[2021-01-13 13:15] VITALS: BP 165/106
--- NOTE | 2021-01-13 13:50 | NUR ---
on-going assessment: CM REVIEWED CHART. PT HAS ORDERS TO DISCHARGE HOME TODAY WITH HH. CM NOTIFIED [facility] AND FAXED DISCHARGE PAPERWORK TO THEM AND CONFIRMED THEY RECEIVED IT. CASE CLOSED.
== END 2021-01-13 13:49 | disposition home or self-care (01) | DRG 871 ==
LOC: ER 15:59 → EROBS 21:00 → 4S 21:00
PROVIDERS: Nurse Practitioner; ADMIT Hospitalist; ATTEND Hospitalist
DX: A41.9 Sepsis, unspecified organism (principal); E43 Unspecified severe protein-calorie malnutrition; T81.49XA Infection following a procedure, other surgical site, initial encounter; I47.1 Supraventricular tachycardia; R10.9 Unspecified abdominal pain; I10 Essential (primary) hypertension; J45.909 Unspecified asthma, uncomplicated; K21.9 Gastro-esophageal reflux disease without esophagitis; J44.9 Chronic obstructive pulmonary disease, unspecified; F41.9 Anxiety disorder, unspecified; M32.9 Systemic lupus erythematosus, unspecified; D72.829 Elevated white blood cell count, unspecified; E87.6 Hypokalemia; G43.909 Migraine, unspecified, not intractable, without status migrainosus; Z88.8 Allergy status to other drugs, medicaments and biological substances; Z86.711 Personal history of pulmonary embolism; Z82.49 Family history of ischemic heart disease and other diseases of the circulatory system; Z83.3 Family history of diabetes mellitus; Z82.5 Family history of asthma and other chronic lower respiratory diseases; Z81.8 Family history of other mental and behavioral disorders; Y83.8 Other surgical procedures as the cause of abnormal reaction of the patient, or of later complication, without mention of misadventure at the time of the procedure; Y92.89 Other specified places as the place of occurrence of the external cause
CPT/HCPCS: 10195

== ENCOUNTER 2021-01-15 15:13 | Emergency (ER) | payer OTHER ==
[~2021-01-15] VITALS: Ht 152.4 cm; Wt 88.0 kg
[~2021-01-15 15:13] MED LIST changes: +AMOX TR-K400 MG/5 M PER TUBE
[2021-01-15 16:56] LABS: RBC 4.22 mil/uL (4.20-5.00)
[2021-01-15 17:00] LABS: BASOPHILS 0.7 % (0.0-2.0); EOSINOPHILS 1.1 % (0.0-3.0); HEMATOCRIT 33.6 % (37.0-47.0); LYMPHOCYTES 13.1 % (24.0-44.0); MCH 26.1 pg (26.0-34.0); MCHC 32.8 g/dL (28.0-37.0); MCV 79.6 fL (80.0-100.0); MONOCYTES 6.3 % (1.0-8.0); POLYS 78.8 % (36.0-66.0); RDW 16.5 % (10.5-14.5); WBC 11.5 thou/uL (4.0-11.0)
[2021-01-15 17:03] LABS: CALCIUM 9.3 mg/dL (8.5-10.1); CREATININE 0.9 mg/dL (0.6-1.0); POTASSIUM 3.1 mmol/L (3.5-5.1)
[2021-01-15 17:06] LABS: PLATELET COUNT 483 thou/uL (150-400)
[2021-01-15 17:09] LABS: ALBUMIN 2.7 g/dL (3.4-5.0); TOTAL BILIRUBIN 0.2 mg/dL (0.2-1.0); TOTAL PROTEIN 7.3 g/dL (6.4-8.2)
[2021-01-15 19:23] LABS: URINE CLARITY CLEAR; URINE COLOR YELLOW; URINE GLUCOSE-RANDOM* NEGATIVE (Negative); URINE PROTEIN (DIPSTICK) NEGATIVE (Negative)
[2021-01-15 19:24] LABS: URINE BILIRUBIN NEGATIVE (Negative); URINE BLOOD TRACE (Negative); URINE KETONES NEGATIVE (Negative); URINE LEUKOCYTES-REFLEX NEGATIVE (Negative); URINE NITRITE-REFLEX NEGATIVE (Negative); URINE UROBILINOGEN 0.2 E.U./dl (0.2-1.0)
[2021-01-15] MEDS ORDERED: PHENERGAN 25 MG25 M1 PO (19:51)
[2021-01-15] MEDS ORDERED: POTASSIUM20 PO (19:52)
[2021-01-15 20:24] VITALS: BP 168/100
[2021-01-15] MEDS ORDERED: DILAUDID 4 MG TA4 M1 PO (20:31)
[2021-01-15] MEDS ORDERED: NORVASC5 MG PO (20:32)
[2021-01-15] MEDS ORDERED: NORTRIPTYLINE H25 M3 PO (20:32)
== END 2021-01-15 20:34 | disposition home or self-care (01) ==
LOC: ER 15:13
PROVIDERS: Nurse Practitioner Family
DX: R11.2 Nausea with vomiting, unspecified (principal); R19.7 Diarrhea, unspecified; E87.6 Hypokalemia; R10.84 Generalized abdominal pain; I10 Essential (primary) hypertension; J45.909 Unspecified asthma, uncomplicated; K21.9 Gastro-esophageal reflux disease without esophagitis; M19.90 Unspecified osteoarthritis, unspecified site; Z88.8 Allergy status to other drugs, medicaments and biological substances; Z79.899 Other long term (current) drug therapy; Z79.82 Long term (current) use of aspirin; Z98.890 Other specified postprocedural states

== ENCOUNTER 2021-02-25 02:48 | Inpatient (IN) | payer OTHER ==
[~2021-02-25] VITALS: Ht 152.4 cm; Wt 92.0 kg
[2021-02-25] VITALS (12 sets, daily range): BP systolic 140–180; BP diastolic 74–116
[~2021-02-25 02:48] MED LIST changes: +DILAUDID 4 MG TA4 M1 PO; +NORTRIPTYLINE H25 M3 PO; +NORVASC5 MG PO; +POTASSIUM20 PO
[2021-02-25 03:35] LABS: ABSOLUTE NEUTROPHILS 9.2 thou/uL (1.4-8.2); BASOPHILS 1.2 % (0.0-2.0); EOSINOPHILS 7.7 % (0.0-3.0); HEMATOCRIT 32.5 % (37.0-47.0); HEMOGLOBIN 10.7 gm/dL (12.0-15.0); LYMPHOCYTES 21.8 % (24.0-44.0); MCH 26.9 pg (26.0-34.0); MCHC 32.9 g/dL (28.0-37.0); MCV 81.9 fL (80.0-100.0); MONOCYTES 5.9 % (1.0-8.0); POLYS 63.4 % (36.0-66.0); RBC 3.97 mil/uL (4.20-5.00); RDW 19.2 % (10.5-14.5); WBC 14.4 thou/uL (4.0-11.0)
[2021-02-25 03:48] LABS: CALCIUM 8.6 mg/dL (8.5-10.1); CREATININE 0.9 mg/dL (0.6-1.0); POTASSIUM 4.2 mmol/L (3.5-5.1)
[2021-02-25 04:00] LABS: TOTAL BILIRUBIN 0.1 mg/dL (0.2-1.0); TOTAL PROTEIN 7.2 g/dL (6.4-8.2)
[2021-02-25 04:18] LABS: PLATELET COUNT 289 thou/uL (150-400); PLATELET ESTIMATE NORMAL
--- NOTE | 2021-02-25 11:09 | NUR ---
Admitted to the floor at 6:20am as per Night RN. Received awake on bed. Due medications given as prescribed. On MS, not on telemetry; no complains and signs of chest pain, crushing sensation and heaviness. Assisted in ADLs. On room air. On nothing per orem- mouth swabs provided. No nausea, no vomiting and no abdominal pain noted. Continent of bowel and bladder, able to go to the toilet with standby assist; Falls bundle in place. With R portacath- acceessed. Complained of pain, due PRN pain meds given as prescribed. Pt seen and examined by Dr Ivory, med rec reviewed. With consult to Dr Reilly- called answering service; will inform physician fabrication specialist(Dr Duran)- will see pt- pt updated re: this. Complained of nausea, PRN anti emetic given as prescribed. Still complaining of pain, requesting for pain meds to be changed to Dilauded- as per Dr Ivory- unable to change morphine to dilauded now; increased frequency from q4 to q2 instead- pt updated re: this. Admission assessment, history and education done; admission forms signed. Admission packet provided; ID bands changed. Belongings charted. To continue monitoring patient.
--- NOTE | 2021-02-25 13:12 | EKG ---
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: ashly : 1975 Requested By: Halima Johns Order Number: [id number] MD: Bradley Garcia Measurements Intervals [place] Rate: 101 P: 76 [place]: 139 QRS: 56 QRSD: 89 T: 46 QT: 358 QTc: 465 Interpretive Statements Sinus tachycardia Probable left atrial enlargement Abnormal R-wave progression, early transition Compared to ECG 01/11/2021 20:26:18 No significant changes Electronically Signed On 02-25-2021 13:12:17 CDT by Bradley Garcia [email or web address] <ELECTRONICALLY SIGNED> By: Bradley Garcia MD 02/25/21 1312 0320 0320 Bradley Garcia MD /ABISAI
[2021-02-26 00:54] VITALS: BP 137/74
--- NOTE | 2021-02-26 03:26 | NUR ---
ASSUMED CARE OF PT AT SHIFT CHANGE. PT IS AOX4 AND LETS NEEDS BE KNOWN. FALL PRECAUTION IN PLACE. PT IS POST OP DAY 0. 4 X LAP SITES ARE C/D/I. PT REPORTS ABD PAIN AND NAUSEA; PRNS PRIOVIDED. ABX TREATMENT CONTINUED. ASSESSMENT CHARTED. PT WAS ABLE TO VOID. NO FLATUS OR BM NOTED POST OP. PT SLEPT PART OF THE SHIFT. WILL CONTINUE TO MONITOR.
[2021-02-26 06:05] LABS: BASOPHILS 0.5 % (0.0-2.0); HEMATOCRIT 32.8 % (37.0-47.0); HEMOGLOBIN 10.7 gm/dL (12.0-15.0); LYMPHOCYTES 6.7 % (24.0-44.0); MCH 26.6 pg (26.0-34.0); MCHC 32.5 g/dL (28.0-37.0); MCV 81.9 fL (80.0-100.0); PLATELET COUNT 360 thou/uL (150-400); POLYS 88.8 % (36.0-66.0); RBC 4.01 mil/uL (4.20-5.00); RDW 18.9 % (10.5-14.5); WBC 14.7 thou/uL (4.0-11.0)
[2021-02-26 06:18] LABS: ALBUMIN 2.9 g/dL (3.4-5.0); CALCIUM 8.9 mg/dL (8.5-10.1); CREATININE 0.9 mg/dL (0.6-1.0); POTASSIUM 4.6 mmol/L (3.5-5.1); TOTAL BILIRUBIN 0.2 mg/dL (0.2-1.0); TOTAL PROTEIN 7.1 g/dL (6.4-8.2)
[2021-02-26 07:53] VITALS: BP 173/87
[2021-02-26 15:46] VITALS: BP 140/75
--- NOTE | 2021-02-26 18:46 | NUR ---
PATIENT HAS HAD PAIN THROUGH THE DAY. PRN MORPHINE MODERATELY EFFECTIVE. SHE UP AND AMBULATED ABOUT UNIT WITH SOME LOWER ABDOMINAL PAIN. INCISION SITES ARE WELL APPROXIMATED. WILL CONT WITH PLAN OF CARE.
[2021-02-26 19:24] VITALS: BP 136/75
--- NOTE | 2021-02-27 05:52 | NUR ---
Assumed pt care at 1900. A/OX4,VSS. C/o pain to abd medicated around the clock with Morphine;states PO pain meds don't work and are harsh on hte stomach. Medicated for nausea as well with some relief reported. Encouraged to ambulate on the hallway at HS but declined stating she had already done so during the day. Has 4 lap sites intact with dermabond. Port patect on left chests,saline locked. Resting in bed w/o any distress,will continue to monitor pt.
[2021-02-27 07:00] VITALS: BP 150/82
--- NOTE | 2021-02-27 09:43 | NUR ---
Received awake on bed. Due medications given as prescribed, able to swallow meds w/o difficulty. On room air. Vital signs stable. On MS; no complains of pain, crushing sensation and heaviness. Assisted in ADLs. On regular diet- tolerating well; no nausea, no vomiting and no abdominal pain noted. Continent of bowel and bladder; able to go to the toilet with standby assist. With L jr cath- accessed; on IV antibiotics. With 4 abdominal lap sites; C/D/I- no bleeding and drainage noted. Still complaining of constant pain; physcian aware re: pain unrelieved by any medications and on the dot requesting for pain meds to be given. Very keen to go home today; a/w Dr Ivory's rounds. To continue monitoring patient.
[2021-02-27 10:38] VITALS: BP 150/82
--- NOTE | 2021-03-01 17:06 | PATH ---
[facility] [address] [place] [address] PATHOLOGY RPT PROCEDURE Name: KIMBERLY COLON Room #: 450-P [facility] IN M.R.#: [id number] Admission: 02/25/21 Date of : 75 Discharge: 02/27/21 Report #: [id number] Path Case #: [id number] LCA Accession Number: [id number] . 01 Material submitted: . gallbladder - GALLBLADDER . 01 Clinical history: . ACUTE CHOLECYSTITIS, CHOLELITHIASIS . 02 Diagnosis: Gallbladder, cholecystectomy: - Mild chronic cholecystitis. - Cholelithiasis. (IUV:pit; 03/01/2021) QT 03/01/2021 [facility]3 Local . 02 Electronically signed: . Roxie Mo MD, Pathologist NPI- [id number] . 01 Gross description: . Fixative: formalin Labeled: gallbladder Specimen received: partially collapsed Dimensions: 9 x 2.5 x 2 cm Serosa: smooth craft green Lymph node: not identified Mucosa: velvety-without obvious lesions Average wall thickness: 0.6 cm Calculi: Multiple green measuring up to 1.5 cm Abnormalities: None . Piping Design Specialist body, fundus, and the cystic duct margin in cassette A1. ([facility]; 02/28/2021) DANNY/DANNY 02/28/2021 1853 Local . 02 Pathologist provided ICD-10: K80.10 . 02 CPT . 827003 Specimen Comment: A courtesy copy of this report has been sent to [phone] Specimen Comment: [id number] Specimen Comment: Report sent to / DR AVENDAÑO Performed at: [address] [address] PATHOLOGY RPT PROCEDURE Name: KIMBERLY COLON Room #: [address] [place] [address] IN .R.#: [id number] Admission: 02/25/21 Date of : 75 Discharge: 02/27/21 Report #: [id number] Path Case #: [id number] [address] [id number] MD Terence Milton MD Phone: [phone] Performed at: [address] [id number] MD Roxie Mo MD Phone: [phone]
== END 2021-02-27 12:28 | disposition home or self-care (01) | DRG 419 ==
LOC: ER 02:48 → EROBS 05:36 → 4W 06:04
PROVIDERS: Emergency Medicine; Surgery; ADMIT Family Medicine; ATTEND Family Medicine
PROC: 0FT44ZZ Resection of Gallbladder, Percutaneous Endoscopic Approach (ICD-10-PCS; principal; 2021-02-25)
PROC: BF101ZZ Fluoroscopy of Bile Ducts using Low Osmolar Contrast (ICD-10-PCS; principal; 2021-02-25)
DX: K81.0 Acute cholecystitis (principal); K21.9 Gastro-esophageal reflux disease without esophagitis; I10 Essential (primary) hypertension; F41.9 Anxiety disorder, unspecified; J44.9 Chronic obstructive pulmonary disease, unspecified; M19.90 Unspecified osteoarthritis, unspecified site; M32.9 Systemic lupus erythematosus, unspecified; F12.90 Cannabis use, unspecified, uncomplicated; F32.9 Major depressive disorder, single episode, unspecified; G43.909 Migraine, unspecified, not intractable, without status migrainosus; Z20.822 Contact with and (suspected) exposure to COVID-19; Z79.899 Other long term (current) drug therapy; Z88.8 Allergy status to other drugs, medicaments and biological substances; Z91.018 Allergy to other foods; Z98.84 Bariatric surgery status
CPT/HCPCS: 10047; 50101; 50411; 50555; 50558; 50962; 51489; 51975; 52265; 53307; 54022; 54118; 55245; 55317; 56462; 56525; 56526; 58574; 62110; 62900; 70005

== ENCOUNTER 2021-03-30 09:57 | Emergency (ER) | payer OTHER ==
[~2021-03-30] VITALS: Ht 152.4 cm; Wt 86.2 kg
[2021-03-30 10:46] LABS: HEMOGLOBIN 10.6 gm/dL (12.0-15.0); MCV 81.7 fL (80.0-100.0); PLATELET COUNT 296 thou/uL (150-400); RBC 3.92 mil/uL (4.20-5.00); RDW 18.1 % (10.5-14.5); WBC 8.3 thou/uL (4.0-11.0)
[2021-03-30 10:50] LABS: CALCIUM 8.4 mg/dL (8.5-10.1); CREATININE 0.9 mg/dL (0.6-1.0); POTASSIUM 4.1 mmol/L (3.5-5.1)
[2021-03-30 10:56] LABS: ALBUMIN 2.9 g/dL (3.4-5.0); TOTAL BILIRUBIN 0.2 mg/dL (0.2-1.0); TOTAL PROTEIN 6.9 g/dL (6.4-8.2)
[2021-03-30 11:57] LABS: ABSOLUTE NEUTROPHILS 5.4 thou/uL (1.4-8.2); ANISOCYTOSIS 2+
[2021-03-30 12:58] LABS: URINE BILIRUBIN NEGATIVE (Negative); URINE BLOOD TRACE (Negative); URINE CLARITY CLEAR; URINE COLOR YELLOW; URINE GLUCOSE-RANDOM* NEGATIVE (Negative); URINE KETONES NEGATIVE (Negative); URINE LEUKOCYTES-REFLEX NEGATIVE (Negative); URINE PROTEIN (DIPSTICK) NEGATIVE (Negative); URINE SPECIFIC GRAVITY <= 1.005 (1.005-1.035); URINE UROBILINOGEN 0.2 E.U./dl (0.2-1.0)
[2021-03-30 13:00] LABS: URINE NITRITE-REFLEX POSITIVE (Negative)
[2021-03-30 13:08] LABS: BACTERIA-REFLEX None Seen /HPF (None Seen); CASTS None Seen /LPF (None Seen); CRYSTALS None Seen /LPF (None Seen); SQUAMOUS 0-3 Few /LPF (0-3); URINE WBC-REFLEX None Seen /HPF (0-5)
[2021-03-30 13:09] LABS: URINE RBC 1-2 Rare /HPF (NONE SEEN)
[2021-03-30] MEDS ORDERED: NORCO5 PO (15:17)
[2021-03-30] MEDS ORDERED: FLAGYL500 M1 PO (15:17)
[2021-03-30] MEDS ORDERED: CEPHALEXIN500 MG PO (15:17)
[2021-03-30 15:35] VITALS: BP 144/85
== END 2021-03-30 15:35 | disposition home or self-care (01) ==
LOC: ER 09:57
PROVIDERS: Emergency Medicine
DX: N39.0 Urinary tract infection, site not specified (principal); R10.31 Right lower quadrant pain; I10 Essential (primary) hypertension; J45.909 Unspecified asthma, uncomplicated; K21.9 Gastro-esophageal reflux disease without esophagitis; J44.9 Chronic obstructive pulmonary disease, unspecified; F12.90 Cannabis use, unspecified, uncomplicated; Z88.8 Allergy status to other drugs, medicaments and biological substances; Z79.82 Long term (current) use of aspirin; Z79.899 Other long term (current) drug therapy

== ENCOUNTER 2021-04-04 10:03 | Emergency (ER) | payer OTHER ==
[~2021-04-04] VITALS: Ht 152.4 cm; Wt 89.8 kg
[~2021-04-04 10:03] MED LIST changes: +CEPHALEXIN500 MG PO; +FLAGYL500 M1 PO; +NORCO5 PO
[2021-04-04 11:30] LABS: HEMATOCRIT 32.9 % (37.0-47.0); HEMOGLOBIN 10.8 gm/dL (12.0-15.0); MCH 26.8 pg (26.0-34.0); MCHC 32.9 g/dL (28.0-37.0); MCV 81.4 fL (80.0-100.0); RBC 4.03 mil/uL (4.20-5.00); RDW 17.9 % (10.5-14.5)
[2021-04-04 11:46] LABS: CALCIUM 8.7 mg/dL (8.5-10.1); CREATININE 0.9 mg/dL (0.6-1.0); POTASSIUM 3.4 mmol/L (3.5-5.1)
[2021-04-04 11:52] LABS: TOTAL BILIRUBIN 0.3 mg/dL (0.2-1.0); TOTAL PROTEIN 6.9 g/dL (6.4-8.2)
[2021-04-04 13:07] LABS: URINE BILIRUBIN NEGATIVE (Negative); URINE BLOOD 1+ (Negative); URINE CLARITY CLEAR; URINE GLUCOSE-RANDOM* NEGATIVE (Negative); URINE KETONES NEGATIVE (Negative); URINE LEUKOCYTES-REFLEX NEGATIVE (Negative); URINE NITRITE-REFLEX NEGATIVE (Negative); URINE PROTEIN (DIPSTICK) NEGATIVE (Negative); URINE UROBILINOGEN 0.2 E.U./dl (0.2-1.0)
[2021-04-04 13:08] LABS: URINE COLOR YELLOW
[2021-04-04 13:13] LABS: BACTERIA-REFLEX 1-9 Few /HPF (None Seen); CASTS None Seen /LPF (None Seen); CRYSTALS None Seen /LPF (None Seen); SQUAMOUS 4-10 Moderate /LPF (0-3); URINE RBC 3-10 Few /HPF (NONE SEEN); URINE WBC-REFLEX 0-5 Rare /HPF (0-5)
[2021-04-04] MEDS ORDERED: IBUPROFEN 800800 MG PO (13:53)
[2021-04-04 13:55] VITALS: BP 127/87
[2021-04-04] MEDS ORDERED: JUNEL FE 1-201 EACH PO (13:55)
== END 2021-04-04 13:55 | disposition home or self-care (01) ==
LOC: ER 10:03
PROVIDERS: Student in an Organized Health Care Education/Training Program
DX: N83.202 Unspecified ovarian cyst, left side (principal); N83.201 Unspecified ovarian cyst, right side; I10 Essential (primary) hypertension; J44.9 Chronic obstructive pulmonary disease, unspecified; K21.9 Gastro-esophageal reflux disease without esophagitis; M19.90 Unspecified osteoarthritis, unspecified site; G43.909 Migraine, unspecified, not intractable, without status migrainosus; F41.9 Anxiety disorder, unspecified; Z88.8 Allergy status to other drugs, medicaments and biological substances; Z98.890 Other specified postprocedural states; Z79.899 Other long term (current) drug therapy; Z79.2 Long term (current) use of antibiotics; Z91.018 Allergy to other foods; Z88.6 Allergy status to analgesic agent

== ENCOUNTER 2021-06-18 09:06 | Inpatient (IN) | payer OTHER ==
[~2021-06-18] VITALS: Ht 152.4 cm; Wt 80.7 kg
[~2021-06-18 09:06] MED LIST changes: +IBUPROFEN 800800 MG PO; +JUNEL FE 1-201 EACH PO
[2021-06-18 09:19] VITALS: BP 178/116
[2021-06-18 10:09] LABS: BE(vivo) 0.9 mmol/L (-2 to +3); HCO3 24.8 mmol/L (22.0-26.0); PCO2 37.5 mmHg (35.0-45.0); PO2 109.1 mmHg (80.0-100.0); pH 7.439 (7.360-7.450); sO2 98.2 % (92.0-98.0)
[2021-06-18 10:23] LABS: ABSOLUTE NEUTROPHILS 6.1 thou/uL (1.4-8.2); EOSINOPHILS 7.6 % (0.0-3.0); HEMOGLOBIN 11.3 gm/dL (12.0-15.0); LYMPHOCYTES 19.7 % (24.0-44.0); MCH 25.9 pg (26.0-34.0); MCHC 32.4 g/dL (28.0-37.0); MONOCYTES 6.3 % (1.0-8.0); PLATELET COUNT 282 thou/uL (150-400); POLYS 65.4 % (36.0-66.0); RBC 4.38 mil/uL (4.20-5.00); RDW 16.5 % (10.5-14.5); WBC 9.3 thou/uL (4.0-11.0)
[2021-06-18 10:33] LABS: CALCIUM 8.6 mg/dL (8.5-10.1); CREATININE 0.8 mg/dL (0.6-1.0); POTASSIUM 3.8 mmol/L (3.5-5.1)
[2021-06-18 10:43] LABS: ALBUMIN 3.1 g/dL (3.4-5.0); TOTAL BILIRUBIN 0.4 mg/dL (0.2-1.0); TOTAL PROTEIN 6.9 g/dL (6.4-8.2)
[2021-06-18 12:27] VITALS: BP 170/87
[2021-06-18 12:53] VITALS: BP 184/79
[2021-06-18 16:16] VITALS: BP 145/101
--- NOTE | 2021-06-18 18:39 | NUR ---
PATIENT ADMIT TO UNIT AT 1340 FROM ER ON 2L/NC. A/O X4 ANXIOUS. C/O HEADACHE. PATIENT CALLED OUT CHEST HEAVY AND NOT ABLE TO MOVE ALL EXTREMITYS. CALLED DR AVENDAÑO STAT ORDER RECEIEVED SEE CHART. PATIENT STATE FEEL BETTER NOW, WILL KEEP MONITOR.
[2021-06-18 20:27] VITALS: BP 155/121; BP 155/151
[2021-06-19] VITALS: BP 160/04; BP 160/104
[2021-06-19 04:00] VITALS: BP 153/87
--- NOTE | 2021-06-19 05:17 | NUR ---
Pt started complaining of chest pain 0515, pain meds given prior to stat EKG. EKG results done at 0518; results normal; labs where drawn 10 minutes before the event, O2 increased from 2L to 4L, patient stated that she had difficulties breathing because of the pain . Pt had a simular complaint during day shift and all results where within normal limits. Will monitor pt and call D
[2021-06-19 05:32] LABS: ABSOLUTE NEUTROPHILS 13.5 thou/uL (1.4-8.2); BASOPHILS 0.1 % (0.0-2.0); HEMATOCRIT 35.1 % (37.0-47.0); HEMOGLOBIN 11.2 gm/dL (12.0-15.0); LYMPHOCYTES 5.2 % (24.0-44.0); MCH 25.7 pg (26.0-34.0); MCHC 31.9 g/dL (28.0-37.0); MCV 80.6 fL (80.0-100.0); MONOCYTES 1.2 % (1.0-8.0); PLATELET COUNT 300 thou/uL (150-400); POLYS 93.5 % (36.0-66.0); RBC 4.36 mil/uL (4.20-5.00); RDW 16.8 % (10.5-14.5); WBC 14.5 thou/uL (4.0-11.0)
[2021-06-19 06:08] LABS: ANION GAP 12 mmol/L (7-16); BUN 7 mg/dL (7-18); CALCIUM 8.6 mg/dL (8.5-10.1); CHLORIDE 106 mmol/L (98-107); CO2 21 mmol/L (21-32); CREATININE 0.8 mg/dL (0.6-1.0); DIRECT BILIRUBIN < 0.1 mg/dL (<0.1-0.2); GLUCOSE 130 mg/dL (74-106); PHOSPHORUS 2.5 mg/dL (2.5-4.9); POTASSIUM 4.1 mmol/L (3.5-5.1); SGOT 10 U/L (15-37); SGPT 16 U/L (30-65); SODIUM 139 mmol/L (136-145); TOTAL BILIRUBIN 0.2 mg/dL (0.2-1.0)
[2021-06-19 06:11] LABS: CALCIUM 8.6 mg/dL (8.5-10.1); CREATININE 0.8 mg/dL (0.6-1.0); TOTAL BILIRUBIN 0.2 mg/dL (0.2-1.0); TOTAL PROTEIN 7.1 g/dL (6.4-8.2)
--- NOTE | 2021-06-19 06:46 | NUR ---
Pt complained of severe headache scored at 8 on 0-[address] around [address] Ivory was called, orders for hydrocodone received, pt refused the meds; stating that it makes her tummy hurt. Dr. Ivory was called again; new orders where received; patient was able to rest. Dr. Ivory was updated and order for anxiety were also received.
--- NOTE | 2021-06-19 07:35 | EKG ---
[address] [place] [address] ELECTROCARDIOGRAM REPORT Name: KIMBERLY COLON Room #: 357-P ADM IN M.R.#: [id number] Admission: 06/18/21 Attend Phys: Terrence Ivory MD Discharge: Date of : 75 Report #: [id number] [facility] ED Test Date: 2021-06-18 Test Time: 09:42:41 Pat Name: KIMBERLY COLON Department: Room: Gender: F Desktop Publishing Associate: : 1975 Requested By: Reggie Sanford Order Number: [id number] MD: Long Stewart Measurements Intervals [place] Rate: 94 P: 72 WA: 118 QRS: 59 QRSD: 90 T: 54 QT: 372 QTc: 466 Interpretive Statements Sinus rhythm Borderline short WA interval Baseline wander in lead(s) I,II,III,aVR,aVL,V1,V2,V3,V4,V5,V6 Compared to ECG 02/25/2021 03:20:37 Possible ischemia now present Sinus tachycardia no longer present Electronically Signed On 06-19-2021 7:34:58 CDT by Long Stewart [email or web address] <ELECTRONICALLY SIGNED> By: Long Stewart MD, FAC 06/19/21 0734 0942 0942 Long Stewart MD, [facility] /EPI
[2021-06-19 08:19] VITALS: BP 148/91
[2021-06-19 11:56] VITALS: BP 156/98
[2021-06-19 13:34] LABS: URINE BILIRUBIN NEGATIVE (Negative); URINE BLOOD TRACE (Negative); URINE CLARITY CLEAR; URINE COLOR YELLOW; URINE GLUCOSE-RANDOM* NEGATIVE (Negative); URINE KETONES 2+ (Negative); URINE LEUKOCYTES-REFLEX NEGATIVE (Negative); URINE NITRITE-REFLEX NEGATIVE (Negative); URINE PROTEIN (DIPSTICK) NEGATIVE (Negative); URINE UROBILINOGEN 0.2 E.U./dl (0.2-1.0)
--- NOTE | 2021-06-19 15:02 | NUR ---
INITIAL ASSESSMENT: SW reviewed chart and spoke with nursing. Pt was admitted from home due to COVID. Pt placed in Enhanced Isolation. Pt with hx of asthma. Per chart, pt had positive COVID test on 06/13 while at [facility]. Pt has not received a COVID vaccine. Pt is afebrile and has been on O2. Pt is on IV abx and IV steroids. Remdesivir started. MAGEN spoke with pt via phone. Introduced role of SW. Pt is alert/orientated x 4. Pt reports she lives at home with her . Prior to admission, pt was independent with ADLs. Pt has a cane and walker to use if needed. Pt has a nebulizer for breathing treatments and an inhaler. Pt has used [facility] in the past. No hx of post-acute placement. Pt's PCP is Dr. Ivory. Plan is for pt to discharge home when medically stable. SW is following to assist as needed with discharge planning.
[2021-06-19 15:21] VITALS: BP 150/99
--- NOTE | 2021-06-19 17:58 | NUR ---
ASSUMED PATIENT CARE AT 0700. A/O X4. ANXIOUS. GENERLIZED ANF CHEST PAIN. PAIN MEDS GIVEN NEED. ON RA. SLOWLY TOWARDS POC .
[2021-06-19 20:15] VITALS: BP 172/99
[2021-06-20 03:35] VITALS: BP 160/95
--- NOTE | 2021-06-20 06:13 | NUR ---
Pt. stated she has not slept for three nights. C/O chest tightness and soreness especially when coughing and deep breathing. Medicated for pain with some relief. O2 at 2L/NC for comfort. O2 sat up to 100%. She reported being short of breath with exertion. Cough med given x2 this shift.She stated she slept for a total of 2 hrs. at least last night. Encouraged to sleep in prone position which she did. Also encouraged use of IS. Cont. on enhanced precaution , afebrile. Up with assist to bathroom to void.
--- NOTE | 2021-06-20 07:17 | EKG ---
[address] [place] [address] ELECTROCARDIOGRAM REPORT Name: KIMBERLY COLON Room #: 357- ADM IN M.R.#: [id number] Admission: 06/18/21 Attend Phys: Terrence Ivory MD Discharge: Date of : 75 Report #: [id number] [facility] Test Date: 2021-06-18 Test Time: 18:07:07 Pat Name: KIMBERLY COLON Department: Room: 357 Gender: F Solution Strategist: UNKNOWN : 1975 Requested By: Terrence Ivory Order Number: [id number] MD: Long Stewart Measurements Intervals [place] Rate: 97 P: 68 [place]: 132 QRS: 26 QRSD: 84 T: 25 QT: 374 QTc: 475 Interpretive Statements Sinus rhythm Probable left atrial enlargement Abnormal R-wave progression, early transition Compared to ECG 06/18/2021 09:42:41 No significant changes Electronically Signed On 06-20-2021 7:17:03 CDT by Long Stewart [email or web address] <ELECTRONICALLY SIGNED> By: Long Stewart MD, [facility] 06/20/21716 1807 06 Long Stewart MD, FACC /EPI
--- NOTE | 2021-06-20 07:17 | EKG ---
[address] [address] ELECTROCARDIOGRAM REPORT Name: KIMBERLY COLON Room #: 357- ADM IN M.R.#: [id number] Admission: 06/18/21 Attend Phys: Terrence Ivory MD Discharge: Date of : 75 Report #: [id number] [facility] Test Date: 2021-06-19 Test Time: 05:15:43 Pat Name: KIMBERLY COLON Department: Room: 357 Gender: F Service Secretary: UNKNOWN : 1975 Requested By: Terrence Ivory Order Number: [id number] MD: Long Stewart Measurements Intervals [place] Rate: 90 P: 73 MA: 141 QRS: 44 QRSD: 81 T: 33 QT: 373 QTc: 457 Interpretive Statements Incomplete analysis due to missing data in precordial lead(s) Sinus rhythm Missing lead(s): V5 Compared to ECG 06/18/2021 18:07:07 Electronically Signed On 06-20-2021 7:17:17 CDT by Long Stewart [email or web address] <ELECTRONICALLY SIGNED> By: Lnog Stewart MD, [facility] 06/20/21716 4 4 Long Stewart MD, [facility] /EPI
[2021-06-20 07:41] VITALS: BP 178/95
[2021-06-20 08:07] LABS: HIV ANTIBODY Non Reactive (Non Reactive)
[2021-06-20 09:37] LABS: ALBUMIN 2.8 g/dL (3.4-5.0); ANION GAP 9 mmol/L (7-16); BUN 14 mg/dL (7-18); CALCIUM 8.3 mg/dL (8.5-10.1); CHLORIDE 106 mmol/L (98-107); CO2 22 mmol/L (21-32); CREATININE 0.9 mg/dL (0.6-1.0); DIRECT BILIRUBIN < 0.1 mg/dL (<0.1-0.2); GLUCOSE 145 mg/dL (74-106); PHOSPHORUS 2.7 mg/dL (2.6-4.7); POTASSIUM 4.3 mmol/L (3.5-5.1); SGOT 28 U/L (15-37); SGPT 32 U/L (14-59); SODIUM 137 mmol/L (136-145); TOTAL BILIRUBIN 0.3 mg/dL (0.2-1.0); TOTAL PROTEIN 6.6 g/dL (6.4-8.2)
[2021-06-20 11:36] VITALS: BP 194/97
--- NOTE | 2021-06-20 15:01 | NUR ---
SW reviewed chart and spoke with nursing. Pt remains in Enhanced Isolation due to COVID. Pt is afebrile and on 2L of O2. Pt is on IV abx, IV steroids and Remdesivir. MAGEN received call from nurse FROILAN Flores with pt's insurance. ( ) SW returned call and left voice message to request in-network providers for home O2/HH if needed at time of disharge. Plan is for pt to discharge home when medically stable. MAGEN is following to assist as needed with discharge planning.
[2021-06-20 15:46] VITALS: BP 179/93
--- NOTE | 2021-06-20 17:09 | NUR ---
DC TO SNF AT 1700.
--- NOTE | 2021-06-20 18:25 | NUR ---
ASSUMED PATIENT CARE AT 0700. A/O X4. ANXIOUS. ON RA. SLOWLY TOWARDS POC GOALS.
[2021-06-20 20:00] VITALS: BP 145/96
--- NOTE | 2021-06-21 03:56 | NUR ---
Slept better last night, woke up a little disoriented but easily reoriented. Medicated for pain with some relief stating it does not really help but it just takes the edge off. C/O chest tightness and hard to breath relieved by breating tx.Uses O2 at 2L/NC for comfort. She has been afebrile. Easily gets anxious but cooperative. Using IS when awake. Voiding per commode.
[2021-06-21 06:49] LABS: ALBUMIN 2.9 g/dL (3.4-5.0); ANION GAP 11 mmol/L (7-16); BUN 15 mg/dL (7-18); CALCIUM 8.3 mg/dL (8.5-10.1); CHLORIDE 106 mmol/L (98-107); CO2 23 mmol/L (21-32); CREATININE 0.9 mg/dL (0.6-1.0); DIRECT BILIRUBIN < 0.1 mg/dL (<0.1-0.2); GLUCOSE 137 mg/dL (74-106); PHOSPHORUS 2.6 mg/dL (2.6-4.7); POTASSIUM 4.3 mmol/L (3.5-5.1); SGOT 12 U/L (15-37); SGPT 28 U/L (14-59); SODIUM 140 mmol/L (136-145); TOTAL BILIRUBIN 0.1 mg/dL (0.2-1.0); TOTAL PROTEIN 6.4 g/dL (6.4-8.2)
[2021-06-21 07:43] VITALS: BP 199/10; BP 199/107
[2021-06-21 11:00] VITALS: BP 170/101
--- NOTE | 2021-06-21 16:23 | NUR ---
RECEIVED CALL BACK FROM [id number] & THEY USE [facility] FOR NETWORK O2 PROVIDERS.
[2021-06-21 17:07] VITALS: BP 175/92
[2021-06-21 19:06] VITALS: BP 162/90
[2021-06-22 03:55] VITALS: BP 135/85
[2021-06-22 06:59] LABS: ALBUMIN 2.9 g/dL (3.4-5.0); ANION GAP 7 mmol/L (7-16); BUN 13 mg/dL (7-18); CALCIUM 8.3 mg/dL (8.5-10.1); CHLORIDE 104 mmol/L (98-107); CO2 29 mmol/L (21-32); CREATININE 0.9 mg/dL (0.6-1.0); DIRECT BILIRUBIN < 0.1 mg/dL (<0.1-0.2); GLUCOSE 116 mg/dL (74-106); PHOSPHORUS 2.8 mg/dL (2.5-4.9); POTASSIUM 4.1 mmol/L (3.5-5.1); SGOT 6 U/L (15-37); SGPT 25 U/L (30-65); SODIUM 140 mmol/L (136-145); TOTAL BILIRUBIN 0.2 mg/dL (0.2-1.0); TOTAL PROTEIN 6.4 g/dL (6.4-8.2)
[2021-06-22 07:09] VITALS: BP 210/109
--- NOTE | 2021-06-22 07:30 | NUR ---
Verbalized feeling better after she had her migraine cocktail medicine yesterday. She slept well during the night. She is less anxious and in better spirits.Morphine given for pleuritic pain and generalized discomfort with some relief.When she woke up this am c/o right knee pain and feels like it is more swollen than the other. Warm blankets provided and wrapped right knee. Up with SBA to min assist to commode. Cont. on enhanced precaution , afebrile. Tolerating room air well with O2 sat up to 100%. Uses O2 2L/NC prn for shortness of breath with exertion. Making some progress towards care plan goals.
[2021-06-22 09:40] LABS: T-SPOT.TB Negative
[2021-06-22 11:11] VITALS: BP 189/98
[2021-06-22] MEDS ORDERED: CEFDINIR300 MG PO (12:21)
[2021-06-22] MEDS ORDERED: NORVASC5 MG PO (12:22)
[2021-06-22] MEDS ORDERED: PREDNISONE 10 M10 M1 PO (12:23)
[2021-06-22 12:27] VITALS: BP 189/98
--- NOTE | 2021-06-22 12:59 | NUR ---
DISCHARGE NOTE: SW reviewed chart and spoke with nursing. Pt remains in Enhanced Isolation due to COVID. Pt to have last dose of Remdesivir today and will discharge home. Pt is afebrile and on room air. SW spoke with pt via phone to discuss discharge plan. Pt is agreeable with plan. No discharge needs voiced. Pt's family will provide transportation home later today. No SW needs identified at this time. SW is available to assist should needs arise.
--- NOTE | 2021-06-22 17:16 | NUR ---
ASSUMED PATIENT CARE AT 0700. A/O X4. HAS BAD HEADECHA.ON RA. UP AD FEDE IN ROOM. DC TO HOME.
== END 2021-06-22 17:49 | disposition home or self-care (01) | DRG 177 ==
LOC: ER 09:06 → 3W 13:08 → ER 13:08 → 3W 13:17
PROVIDERS: Emergency Medicine; Internal Medicine Pulmonary Disease; Specialist; ADMIT Family Medicine; ATTEND Family Medicine
PROC: XW033E5 Introduction of Remdesivir Anti-infective into Peripheral Vein, Percutaneous Approach, New Technology Group 5 (ICD-10-PCS; principal; 2021-06-18)
DX: U07.1 COVID-19 (principal); J12.82 Pneumonia due to coronavirus disease 2019; J96.01 Acute respiratory failure with hypoxia; J45.901 Unspecified asthma with (acute) exacerbation; I47.1 Supraventricular tachycardia; D84.89 Other immunodeficiencies; J44.0 Chronic obstructive pulmonary disease with (acute) lower respiratory infection; M32.9 Systemic lupus erythematosus, unspecified; I10 Essential (primary) hypertension; F12.90 Cannabis use, unspecified, uncomplicated; R53.81 Other malaise; I25.10 Atherosclerotic heart disease of native coronary artery without angina pectoris; K21.9 Gastro-esophageal reflux disease without esophagitis; M19.90 Unspecified osteoarthritis, unspecified site; F41.9 Anxiety disorder, unspecified; G43.909 Migraine, unspecified, not intractable, without status migrainosus; Z88.8 Allergy status to other drugs, medicaments and biological substances; Z79.82 Long term (current) use of aspirin; Z79.899 Other long term (current) drug therapy; Z86.711 Personal history of pulmonary embolism; Z81.8 Family history of other mental and behavioral disorders; Z82.5 Family history of asthma and other chronic lower respiratory diseases; Z83.3 Family history of diabetes mellitus; Z82.49 Family history of ischemic heart disease and other diseases of the circulatory system
CPT/HCPCS: 10080; 10879

== ENCOUNTER → 2021-07-17 | Outpatient (CLI) | payer OTHER ==
[~2021-07-17] MED LIST changes: +CEFDINIR300 MG PO
[2021-07-17 09:15] VITALS: BP 134/87
--- NOTE | 2021-07-17 09:57 | NUR ---
NEW PT HERE FOR Q4 WEEK PORT FLUSH AND MAINTENANCE. HISTORY AND MEDICATIONS REVIEWED. FULL ASSESSMENT PERFORMED. PT HAS MANY HEALTH CONCERNS AND SYMPTOMS R/T CHRONIC SLE. NO NEW SYMPTOMS TO REPORT TODAY. POWER PORT LOCATED IN LEFT CHEST. ACCESSED USING A 1" NEEDLE WITH NO COMPLICATIONS. FLUSHES AND ASPIRATES WELL. FLUSHED WITH HEPARIN PER PROTOCOL AND DEACCESSED. PT SCHEDULED TO RETURN Jul AT 0900. LEFT UNIT IN STABLE CONDITION.
== END ==
LOC: OPONC 08:53
PROVIDERS: ATTEND Family Medicine
DX: Z23 Encounter for immunization (principal); M32.9 Systemic lupus erythematosus, unspecified

== ENCOUNTER → 2021-08-18 | Outpatient (CLI) | payer OTHER ==
--- NOTE | 2021-08-18 09:20 | NUR ---
IN FOR ROUTINE PORT FLUSH. REPORTS DOING WELL, NO CONCERN NOTED. PORT ACCESSED WITH EAST, BRISK BLOOD RETURN OBTAINED, FLUSHED WITH 20ML NS THEN HEPARIN FLUSH PER PROTOCOL; DEACCESSED. DISMISSED IN STABLE CONDITION. SCHEDULED TO RETURN IN 6 WEEKS PER PT REQUEST.
== END ==
LOC: OPONC 08-14 13:26
PROVIDERS: ATTEND Family Medicine
DX: Z45.2 Encounter for adjustment and management of vascular access device (principal); M32.9 Systemic lupus erythematosus, unspecified

== ENCOUNTER 2021-09-03 09:18 | Inpatient (IN) | payer OTHER ==
[~2021-09-03] VITALS: Ht 152.4 cm; Wt 93.4 kg
[2021-09-03 09:28] VITALS: BP 146/86
[2021-09-03 09:50] LABS: URINE BILIRUBIN NEGATIVE (Negative); URINE BLOOD 1+ (Negative); URINE COLOR YELLOW; URINE GLUCOSE-RANDOM* NEGATIVE (Negative); URINE KETONES NEGATIVE (Negative); URINE LEUKOCYTES-REFLEX TRACE (Negative); URINE NITRITE-REFLEX NEGATIVE (Negative); URINE PROTEIN (DIPSTICK) NEGATIVE (Negative); URINE SPECIFIC GRAVITY 1.025 (1.005-1.035); URINE UROBILINOGEN 0.2 E.U./dl (0.2-1.0)
[2021-09-03 09:51] LABS: URINE CLARITY HAZY
[2021-09-03 10:30] LABS: ABSOLUTE NEUTROPHILS 6.1 thou/uL (1.4-8.2); BASOPHILS 0.8 % (0.0-2.0); EOSINOPHILS 0.9 % (0.0-3.0); HEMATOCRIT 22.1 % (37.0-47.0); LYMPHOCYTES 20.6 % (24.0-44.0); MCH 25.6 pg (26.0-34.0); MCHC 31.9 g/dL (28.0-37.0); MCV 80.3 fL (80.0-100.0); MONOCYTES 4.6 % (1.0-8.0); PLATELET COUNT 282 thou/uL (150-400); POLYS 73.1 % (36.0-66.0); RBC 2.75 mil/uL (4.20-5.00); WBC 8.3 thou/uL (4.0-11.0)
[2021-09-03 11:00] LABS: CASTS None Seen /LPF (None Seen); CRYSTALS None Seen /LPF (None Seen); SQUAMOUS >10 Many /LPF (0-3)
[2021-09-03 11:02] LABS: BACTERIA-REFLEX 1-9 Few /HPF (None Seen); URINE RBC 1-2 Rare /HPF (NONE SEEN); URINE WBC-REFLEX 0-5 Rare /HPF (0-5)
[2021-09-03 11:03] LABS: CALCIUM 7.6 mg/dL (8.5-10.1); CREATININE 0.7 mg/dL (0.6-1.0); POTASSIUM 3.6 mmol/L (3.5-5.1)
[2021-09-03 11:09] LABS: ALBUMIN 2.7 g/dL (3.4-5.0); TOTAL BILIRUBIN 0.2 mg/dL (0.2-1.0)
[2021-09-03 11:56] VITALS: BP 203/118
--- NOTE | 2021-09-03 12:35 | NUR ---
PAGED DR WETZEL PAGED TO INQUIRE ABOUT PAIN MEDICATIONS
[2021-09-03 15:16] LABS: CHOLESTEROL 151 mg/dL (<200); HDL CHOLESTEROL 67 mg/dL (>40); LDL CHOLESTEROL 77 mg/dL (<100); TC:HDL 2.3 Ratio (Not establshd); TRIGLYCERIDE 39 mg/dL (<150); VLDL 8 mg/dL (<40)
[2021-09-03 15:24] LABS: SERUM ASSESSMENT Clear
--- NOTE | 2021-09-03 16:50 | NUR ---
VERBAL AND WRITTEN CONTEST OBTAINED FOR THE BLOOD TRANSFUSION. PT DENIES HAVING A PRIOR BLOOD TRANFUSION.
[2021-09-03 16:56] VITALS: BP 157/90; BP 170/81; BP 173/77
[2021-09-03 17:52] VITALS: BP 157/90
[2021-09-03 19:46] VITALS: BP 168/82
[2021-09-03 20:22] VITALS: BP 145/93
--- NOTE | 2021-09-03 20:30 | NUR ---
BLOOD TRANSFUSION STARTED IN ER PRIOR TO ARRIVAL ON THE UNIT. 2014 - TRANSFUSION STOP TIME. 2021 - POST TRANSFUSION V/S: 98.5 TEMP, 145/93 BP, 84 HR, 20 RR, 99% SPO2 ON RA. PT TOLERATED TRANSFUSION WELL. NO S/S REACTION NOTED.
[2021-09-04 00:15] VITALS: BP 136/85
--- NOTE | 2021-09-04 04:22 | NUR ---
PT STATES SHE SIGNED BLOOD TRANSFUSION CONSENT FORM IN THE ER. NO BLOOD CONSENT FOUND IN PAPER CHART. CALLED ER TO DETERMINE IF CONSENT WAS STILL IN ER. ER STAFF UNABLE TO LOCATE BLOOD CONSENT YET BUT WILL KEEP LOOKING.
--- NOTE | 2021-09-04 05:11 | NUR ---
ADMISSION HX AND ASSESSMENT COMPLETED CHARTED. PT C/O BACK PAIN AND GENERALIZED PAIN. PRN PAIN MEDICATION GIVEN. UP TO BSC TO VOID. SOME LEFT SIDED WEAKNESS NOTED. PLANS FOR MRI TODAY. FALL PRECAUTIONS IN PLACE. PROGRESSING SLOWLY TOWARD POC GOALS. WILL MONITOR FURTHER.
[2021-09-04 05:52] LABS: HEMATOCRIT 34.5 % (37.0-47.0); HEMOGLOBIN 11.4 gm/dL (12.0-15.0); MCH 27.2 pg (26.0-34.0); MCHC 33.2 g/dL (28.0-37.0); RBC 4.2 mil/uL (4.20-5.00); RDW 17.5 % (10.5-14.5); WBC 6.8 thou/uL (4.0-11.0)
[2021-09-04 06:10] LABS: ALBUMIN 2.9 g/dL (3.4-5.0); CALCIUM 8.7 mg/dL (8.5-10.1); CREATININE 0.9 mg/dL (0.6-1.0); TOTAL BILIRUBIN 0.4 mg/dL (0.2-1.0); TOTAL PROTEIN 6.6 g/dL (6.4-8.2)
[2021-09-04 07:26] VITALS: BP 142/80
--- NOTE | 2021-09-04 11:34 | NUR ---
ASSUMED PT CARE THIS AM. PT IS ALERT & ORIENTED X4. PT HAS IV SITE L CHEST PORT SALINE LOCKED. PT HAD MRI THIS AM. PT C/O OF PAIN AND GIVEN FENTANYL IV PUSH PER PT REQUEST. GIVEN LIDOCAINE PATCH AND DICLOFENAC CREAM SCHEDULED. PHYSICAL THERAPY AND OCCUPATIONAL THERAPY WAS WORKING WITH PT TODAY. WILL CONTINUE TO MONITOR PT. FOLLOW POC.
[2021-09-04] MEDS ORDERED: ADULT LOW DOSE81 MG PO (12:37)
[2021-09-04] MEDS ORDERED: ARTHRITIS PAIN100 GM TOP (12:37)
[2021-09-04] MEDS ORDERED: LIDOPATCH1 EACH TRANSDERM (12:37)
[2021-09-04 15:56] VITALS: BP 148/98
--- NOTE | 2021-09-04 17:24 | NUR ---
I have reviewed the documentation by JOSE HASTINGS from 09/04/21 to 09/04/21 and I concur with it. JAZZ HOLDEN
[2021-09-04 18:41] VITALS: BP 106/79
--- NOTE | 2021-09-04 19:12 | NUR ---
Pt. with severe pain-BRICK EXTRUDER OPERATOR activated-see flowsheet
[2021-09-04 19:24] LABS: HEMOGLOBIN 12.4 gm/dL (12.0-15.0)
--- NOTE | 2021-09-04 20:30 | NUR ---
Pt. c/o nausea and did emesis about 100 mls of yellowish colored emesis. Pratima REFUSE LABORER notified and new orders for zofran. Zofran given (see emar) with some relief noted.
[2021-09-04 20:36] VITALS: BP 117/62
--- NOTE | 2021-09-04 22:43 | NUR ---
Pt. became very anxious and c/o chest pain (non-cardiac). Heart rate sinus rythmn per monitor. Pain meds given and po valium was given earlier. Pratima RUBBER CHEMIST rounding on the unit and was informed with no new orders.
[2021-09-05 00:43] VITALS: BP 160/97
--- NOTE | 2021-09-05 04:46 | NUR ---
Pt. has been less anxious and rested quietly at short intervals during the night. No c/o chest pain, but c/o back pain. Continues to c/o nausea at times.
--- NOTE | 2021-09-05 08:17 | EKG ---
[address] [facility] [place] [address] ELECTROCARDIOGRAM REPORT Name: KIMBERLY COLON Room #: 463- ADM IN M.R.#: [id number] Admission: 09/03/21 Attend Phys: Natan Peerz MD Discharge: Date of : 75 Report #: [id number] [facility] Test Date: 2021-09-04 Test Time: 18:47:07 Pat Name: KIMBERLY COLON Department: Room: 463 Gender: F Materials Analyst: MARI : 1975 Requested By: Natan Perez Order Number: [id number] MD: Glenn Talley Measurements Intervals [place] Rate: 82 P: 77 MD: 137 QRS: 56 QRSD: 80 T: 48 QT: 379 QTc: 443 Interpretive Statements Sinus rhythm Early R wave progression Baseline wander in lead(s) II,aVF,V4 Compared to ECG 06/19/2021 05:15:43 No significant change was found Electronically Signed On 09-05-2021 8:17:39 COMMISSIONER OF OFFICIALS by Glenn Talley [email or web address] <ELECTRONICALLY SIGNED> By: Glenn Talley MD, [facility] 09/05/21 0817 1847 184 Glenn Talley MD, [facility] /EPI
[2021-09-05 09:22] VITALS: BP 162/86
[2021-09-05 10:26] VITALS: BP 141/81
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
--- NOTE | 2021-09-05 14:15 | NUR ---
ASSUMED PT CARE THIS AM. PT HAS L CHEST PORT SALINE LOCKED. PT HAS TELE MONITOR ON. PT C/O OF NAUSEA AND PAIN. GIVEN NAUSEA AND PAIN MEDICATION PER PT REQUEST. PT IS ON ROOM AIR. PT HAD MRI TODAY. PT HAS L SIDE WEAKNESS DUE TO HISTORY OF STROKE. PT WAS ANXIOUS THIS AM AND NEEDED REASSURANCE. PT ON THE BED, BED ON THE LOWEST POSITION, SIDE RAILS UP, CALL LIGHT WITHIN REACH. WILL CONTINUE TO MONITOR PT. FOLLOW POC.
[2021-09-05] MEDS ORDERED: PHENERGAN 25 MG25 M1 PO (14:30)
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
--- NOTE | 2021-09-05 16:07 | 2DMMODE ---
[facility] [place] [address] 2 D/M-MODE ECHOCARDIOGRAM Name: KIMBERLY COLON Room #: 463-P ADM IN M.R.#: [id number] Admission: 09/03/21 Attend Phys: Natan Perez MD Discharge: Date of : 75 Report #: [id number] THIS REPORT FOR: cc: Terrence Ivory MD, Neal A. MD Park, Jin S. MD ~ APPROVED REPORT Study performed: 09/05/2021 15:05:56 EXAM: Comprehensive 2D, Doppler, and color-flow Echocardiogram Patient Location: Bedside Room #: 463 Status: routine BSA: 1.89 HR: 70 bpm BP: 141/81 mmHg Rhythm: NSR Other Information Study Quality: Good Indications CVA/TIA 2D Dimensions IVSd: 8.97 (7-11mm) LVOT Diam: 19.93 (18-24mm) LVDd: 47.67 mm PWd: 9.04 (7-11mm) Ascending Ao: 26.25 (22-36mm) LVDs: 33.32 (25-40mm) Left Atrium: 36.03 (27-40mm) Aortic Root: 25.93 mm IVC: 12.00 mm Volumes Left Atrial Volume (Systole) Single Plane 4CH: 22.91 mL Single Plane 2CH: 27.75 mL LA ESV Index: 14.00 mL/m2 Aortic Valve AoV Peak Philip.: 1.29 m/s AO Peak Gr.: 6.70 mmHg LVOT Max P.51 mmHg LVOT Max V: 0.94 m/s JOSHUA Vmax: 2.26 cm2 [facility] [address] [place] [address] 2 D/M-MODE ECHOCARDIOGRAM Name: KIMBERLY COLON Room #: 463-P [facility] IN [facility].#: [id number] Admission: 09/03/21 Attend Phys: Estefanía Foster Discharge: Date of : 75 Report #: [id number] Mitral Valve E/A Ratio: 1.1 MV Decel. Time: 274.05 ms MV E Max Philip.: 0.97 m/s MV A Philip.: 0.86 m/s MV PHT: 79.47 ms IVRT: 110.73 ms Pulmonary Valve PV Peak Philip.: 0.88 m/s PV Peak Gr.: 3.12 mmHg Pulmonary Vein P Vein S: 0.62 m/s P Vein A: 0.31 m/s P Vein D: 0.43 m/s P Vein A Dur.: 92.3 msec P Vein S/D Ratio: 1.44 Tricuspid Valve TR Peak Philip.: 2.39 m/s TR Peak Gr.: 22.77 mmHg PA Pressure: 28.00 mmHg Left Ventricle The left ventricle is normal size. There is normal LV segmental wall motion. There is normal left ventricular wall thickness. The left ventricular systolic function is normal. The left ventricular ejection fraction is within the normal range. LVEF is 55-60%. Right Ventricle The right ventricle is normal size. The right ventricular systolic function is normal. Atria The left atrium size is normal. Injection of bubbles documented no interatrial shunt. The right atrium size is normal. Aortic Valve The aortic valve is normal in structure. No aortic regurgitation is present. There is no aortic valvular stenosis. Mitral Valve The mitral valve is normal in structure. Trace to mild mitral regurgitation. No evidence of mitral valve stenosis. Tricuspid Valve The tricuspid valve is normal in structure. There is trace tricuspid regurgitation. Estimated PAP 27 mmHg. [facility] [address] [place] [address] 2 D/M-MODE ECHOCARDIOGRAM Name: KIMBERLY COLON Room #: 3[facility] IN ..#: [id number] Admission: 09/03/21 Attend Phys: Estfeanía Foster Discharge: Date of : 75 Report #: [id number] Pulmonic Valve The pulmonary valve is normal in structure. There is no pulmonic valvular regurgitation. Great Vessels The aortic root is normal in size. IVC is normal in size and collapses >50% with inspiration. Pericardium There is no pericardial effusion. <Conclusion> The left ventricle is normal size. There is normal left ventricular wall thickness. The left ventricular systolic function is normal. The right ventricle is normal size. The left atrium size is normal. Injection of bubbles documented no interatrial shunt. The aortic valve is normal in structure. Trace to mild mitral regurgitation. There is trace tricuspid regurgitation. Estimated PAP 27 mmHg. <ELECTRONICALLY SIGNED> By: Edwin Gloria MD 09/05/21 1607 1607 160 Edwin Gloria MD /INF
--- NOTE | 2021-09-05 16:45 | NUR ---
PT REPORTED SHE WOULD LIKE TO UTILIZE [facility] FOR PT/OT/NSG ON DISCHARGE. REFERRAL SENT TO [facility].
--- NOTE | 2021-09-05 16:50 | NUR ---
CM MADE CALLED TO [facility] INTAKE DEPARTMENT. WAS INFORMED BY CONSOLE MANAGER TEAM THE STAFF ARE DONE FOR THE DAY. THIS CM WILL CALL A AT [phone] IN AM TO ARRANGE HH FOR PT.
[2021-09-05 17:20] VITALS: BP 141/81
--- NOTE | 2021-09-06 12:02 | NUR ---
I have reviewed the documentation by JOSE HASTINGS from 09/04/21 to 09/05/21 and I concur with it. JAZZ HOLDEN
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
== END 2021-09-05 18:28 | disposition home or self-care (01) | DRG 65 ==
LOC: ER 09:18 → 4W 12:02 → EROBS 12:02 → 4W 17:53
PROVIDERS: Emergency Medicine; Nurse Practitioner Family; Psychiatry & Neurology Neurology; ADMIT Hospitalist; ATTEND Hospitalist
DX: I63.9 Cerebral infarction, unspecified (principal); E44.0 Moderate protein-calorie malnutrition; J45.909 Unspecified asthma, uncomplicated; G43.909 Migraine, unspecified, not intractable, without status migrainosus; D64.9 Anemia, unspecified; S39.012A Strain of muscle, fascia and tendon of lower back, initial encounter; S39.91XA Unspecified injury of abdomen, initial encounter; S29.9XXA Unspecified injury of thorax, initial encounter; S16.1XXA Strain of muscle, fascia and tendon at neck level, initial encounter; G25.81 Restless legs syndrome; M32.9 Systemic lupus erythematosus, unspecified; I10 Essential (primary) hypertension; F12.10 Cannabis abuse, uncomplicated; Z88.8 Allergy status to other drugs, medicaments and biological substances; V89.2XXA Person injured in unspecified motor-vehicle accident, traffic, initial encounter; Y93.89 Activity, other specified; Y92.89 Other specified places as the place of occurrence of the external cause; Y99.8 Other external cause status; Z90.49 Acquired absence of other specified parts of digestive tract; Z86.16 Personal history of COVID-19; Z86.711 Personal history of pulmonary embolism; Z20.822 Contact with and (suspected) exposure to COVID-19
CPT/HCPCS: 10040

== ENCOUNTER → 2021-09-15 | Outpatient (CLI) | payer OTHER ==
[~2021-09-15] MED LIST changes: +ADULT LOW DOSE81 MG PO; +ARTHRITIS PAIN100 GM TOP; +LIDOPATCH1 EACH TRANSDERM
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
[2021-09-15 13:15] LABS: ABSOLUTE NEUTROPHILS 5.2 thou/uL (1.4-8.2); BASOPHILS 0.5 % (0.0-2.0); EOSINOPHILS 0.7 % (0.0-3.0); HEMATOCRIT 35.2 % (37.0-47.0); HEMOGLOBIN 11.4 gm/dL (12.0-15.0); LYMPHOCYTES 15.8 % (24.0-44.0); MCH 26.8 pg (26.0-34.0); MCHC 32.5 g/dL (28.0-37.0); MCV 82.5 fL (80.0-100.0); MONOCYTES 6.7 % (1.0-8.0); PLATELET COUNT 224 thou/uL (150-400); POLYS 76.3 % (36.0-66.0); RBC 4.27 mil/uL (4.20-5.00); RDW 17.7 % (10.5-14.5); WBC 6.8 thou/uL (4.0-11.0)
[2021-09-15 13:32] LABS: ALBUMIN 3.2 g/dL (3.4-5.0); CALCIUM 8.8 mg/dL (8.5-10.1); CREATININE 0.8 mg/dL (0.6-1.0); POTASSIUM 3.8 mmol/L (3.5-5.1); TOTAL BILIRUBIN 0.6 mg/dL (0.2-1.0); TOTAL PROTEIN 6.7 g/dL (6.4-8.2)
== END ==
LOC: LAB 12:20 → OPONC 12:20
PROVIDERS: ATTEND Family Medicine
DX: Z45.2 Encounter for adjustment and management of vascular access device (principal); D64.9 Anemia, unspecified

== ENCOUNTER 2021-09-16 19:42 | Emergency (ER) | payer OTHER ==
[~2021-09-16] VITALS: Ht 152.4 cm; Wt 93.4 kg
[2021-09-16 21:38] LABS: ABSOLUTE NEUTROPHILS 5.9 thou/uL (1.4-8.2); BASOPHILS 0.5 % (0.0-2.0); EOSINOPHILS 0.8 % (0.0-3.0); HEMATOCRIT 33.2 % (37.0-47.0); HEMOGLOBIN 11.1 gm/dL (12.0-15.0); LYMPHOCYTES 20.8 % (24.0-44.0); MCHC 33.2 g/dL (28.0-37.0); MCV 81.2 fL (80.0-100.0); MONOCYTES 7.4 % (1.0-8.0); PLATELET COUNT 204 thou/uL (150-400); POLYS 70.5 % (36.0-66.0); RDW 17.5 % (10.5-14.5); WBC 8.4 thou/uL (4.0-11.0)
[2021-09-16 21:42] LABS: CALCIUM 8.5 mg/dL (8.5-10.1); CREATININE 0.8 mg/dL (0.6-1.0); POTASSIUM 3.6 mmol/L (3.5-5.1)
[2021-09-16 21:50] LABS: ALBUMIN 3.2 g/dL (3.4-5.0); TOTAL BILIRUBIN 0.9 mg/dL (0.2-1.0); TOTAL PROTEIN 6.6 g/dL (6.4-8.2)
[2021-09-16] MEDS ORDERED: NAPROSYN500 MG PO (22:42)
[2021-09-16 23:04] VITALS: BP 146/90
== END 2021-09-16 23:04 | disposition home or self-care (01) ==
LOC: ER 19:42
PROVIDERS: Emergency Medicine
DX: R10.32 Left lower quadrant pain (principal); J45.909 Unspecified asthma, uncomplicated; Z90.49 Acquired absence of other specified parts of digestive tract; Z79.899 Other long term (current) drug therapy; Z88.8 Allergy status to other drugs, medicaments and biological substances

== ENCOUNTER → 2021-10-16 | Outpatient (CLI) | payer OTHER ==
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
== END ==
LOC: OPONC 09:33
PROVIDERS: ATTEND Family Medicine
DX: Z45.2 Encounter for adjustment and management of vascular access device (principal); M32.9 Systemic lupus erythematosus, unspecified